=== PATIENT | female | born 1930 | race Caucasian/White ===

== ENCOUNTER 2020-02-15 15:44 | Inpatient (IN) | payer MEDICARE ==
[2020-02-15 16:19] LABS: ABSOLUTE BASOPHILS # (AUTO) 0.1 10^3/uL (0.0-0.2); ABSOLUTE EOSINOPHILS # (AUTO) 0.2 10^3/uL (0.0-0.6); ABSOLUTE LYMPHOCYTES (AUTO) 1.8 10^3/uL (0.5-4.7); ABSOLUTE MONOCYTES (AUTO) 0.7 10^3/uL (0.1-1.4); ABSOLUTE NEUT (AUTO) 4.7 10^3/uL (1.7-8.2); BASOPHILS % (AUTO) 1.1 % (0-2); EOSINOPHILS % (AUTO) 2.6 % (0-6); HEMATOCRIT 31.8 % (36.0-47.0); HEMOGLOBIN 10.8 g/dL (12.0-15.5); LYMPHOCYTES % (AUTO) 24.4 % (13-45); MEAN CORPUSCULAR HEMOGLOBIN 32.1 pg (27.0-33.4); MEAN CORPUSCULAR VOLUME 94 fl (80-97); MONOCYTES % (AUTO) 9.1 % (3-13); PLATELET COUNT 197 10^3/uL (150-450); RED BLOOD COUNT 3.37 10^6/uL (3.72-5.28); RED CELL DISTRIBUTION WIDTH 16.3 % (11.5-14.0); SEGMENTED NEUTROPHILS % (AUTO) 62.8 % (42-78); TOTAL CELLS COUNTED % (AUTO) 100 %; WHITE BLOOD COUNT 7.4 10^3/uL (4.0-10.5)
--- NOTE | 2020-02-15 16:45 | RADIOLOGY REPORT (SQ) ---
EXAM DESCRIPTION: CHEST SINGLE VIEW IMAGES COMPLETED DATE/TIME: 02/15/2020 4:37 pm REASON FOR STUDY: sob COMPARISON: AP view of the chest from 05/21/2015. EXAM PARAMETERS: NUMBER OF VIEWS: One view. TECHNIQUE: An AP view of the chest was obtained. RADIATION DOSE: NA LIMITATIONS: None. FINDINGS: LUNGS AND PLEURA: No consolidation, pleural effusion or pneumothorax. MEDIASTINUM AND HILAR STRUCTURES: No mediastinal or hilar contour abnormality. HEART AND VASCULAR STRUCTURES: The cardiac silhouette is enlarged. BONES: No acute findings. HARDWARE: Intact left subclavian vein approach single lead transvenous pacemaker. OTHER: No other finding. IMPRESSION: Cardiomegaly without a superimposed acute cardiopulmonary process. TECHNICAL DOCUMENTATION: JOB ID: [id number] 2010 [employer]- All Rights Reserved Reading location - IP/workstation name: [email or web address]
--- NOTE | 2020-02-15 16:51 | ER Document Report ---
ED Respiratory Problem - General Chief Complaint: Shortness Of Breath Stated Complaint: SHORTNESS OF BREATH, EDEMA Time Seen by Provider: 02/15/20 16:20 Mode of Arrival: Stretcher Information source: Patient, Emergency Med Personnel Notes: Patient is a 89-year-old female who states she lives alone but her daughter lives just down the street comes to visit her 3 times a day. She also states that she started with cellulitis of bilateral lower extremities and saw cardiac rehab nurse who put her on a cream that seemed to dissipate. After that dissipated though she states she got the rash under her breast and then last couple of weeks she started getting more short of breath. She feels like her abdomen is distended and she is holding fluid. She has moderate amount of discomfort. She also states that her urine appears very dark even though she is drinking 6 bottles of water a day. Patiently has a past medical history pertinent for cardiac pacemaker she takes 40 mg of Lasix daily along with another medication for the heart. She states that she is not diabetic and that she gets very little exercise. She does state that she has had increasing dyspnea on exertion over the past week to where just going to the bathroom makes her short of breath. She also states that she cannot lay flat she is laying on several pillows in order to sleep. TRAVEL OUTSIDE OF THE [place] IN LAST 30 DAYS: No - HPI Patient complains to provider of: Short of breath Onset: Last week Duration: Continuous, Worse/persistent Initiating Event: Exertion Quality of pain: No pain Severity: Moderate Pain Level: 4 Context: denies: Hx CHF, Hx COPD, Recent cardiac event, Recent foreign travel, Recent long distance trvl, Recent immobilization Short of Breath: Moderate Cough: Nonproductive Sputum amount: None Associated symptoms: Leg/calf/joint pain. denies: Heart racing, Hurts to breathe, Hyperventilation, Wheezing Similar symptoms previously: No Recently seen / treated by doctor: No - Related Data Allergies/Adverse Reactions: Seasonal Allergies Allergy (Uncoded 05/14/15 08:55) Past Medical History - General Information source: Patient - Social History Smoking Status: Never Smoker Chew tobacco use (# tins/day): No Frequency of alcohol use: None Drug Abuse: None Lives with: Alone Family History: Reviewed & Not Pertinent Patient has homicidal ideation: No - Past Medical History Cardiac Medical History: Reports: Hx Hypertension - CONTROLLED WITH MEDS Denies: Hx Coronary Artery Disease, Hx Heart Attack Pulmonary Medical History: Denies: Hx Asthma, Hx Bronchitis, Hx COPD, Hx Pneumonia Neurological Medical History: Denies: Hx Cerebrovascular Accident, Hx Seizures GI Medical History: Denies: Hx Hepatitis, Hx Hiatal Hernia, Hx Ulcer Musculoskeletal Medical History: Reports Hx Arthritis Infectious Medical History: Denies: Hx Hepatitis Past Surgical History: Reports: Hx Pacemaker - SEE CHECKLIST. Denies: Hx Mastectomy, Hx Open Heart Surgery - Immunizations Hx Diphtheria, Pertussis, Tetanus Vaccination: No - Unsure Review of Systems - Review of Systems Constitutional: No symptoms reported EENT: No symptoms reported Cardiovascular: No symptoms reported Respiratory: See HPI, Short of breath Gastrointestinal: See HPI, Abdominal pain Genitourinary: No symptoms reported Female Genitourinary: No symptoms reported Musculoskeletal: No symptoms reported Skin: No symptoms reported Hematologic/Lymphatic: No symptoms reported Neurological/Psychological: No symptoms reported -: Yes All other systems reviewed and negative Physical Exam - Vital signs Vitals: Resp 9 L 02/15/20 15:51 Interpretation: Other - Vital signs have been reviewed but are not crossing over into the main chart patient is slightly hypertensive but not tachycardic saturation is 97%. - Notes Notes: PHYSICAL EXAMINATION: GENERAL: Patient is a 89-year-old female who on physical exam today does not appear to be in any respiratory distress. Patient is talking in full sentences and appears comfortable. Patient is morbidly obese. She has bilateral lower extremity edema as noted on visualization during physical exam. HEAD: Atraumatic, normocephalic. EYES: Pupils equal round and reactive to light, extraocular movements intact, conjunctiva are normal. ENT: Nares patent, oropharynx clear without exudates. Moist mucous membranes. NECK: Normal range of motion, supple without lymphadenopathy LUNGS: Auscultation patient's lungs show she has bilateral breath sounds and breath sounds decreased throughout she has faint rales scattered in the bases of the lungs. No rhonchi wheeze are heard. HEART: Regular rate and rhythm without murmurs ABDOMEN: Examination patient's abdomen so she has bowel sounds present all 4 quads. She is diffusely tender with some moderate distention also noted. But patient's body habitus is very hard to get a good physical exam on the abdomen. Female : deferred Musculoskeletal: Normal range of motion, patient does display 1-2+ pitting edema bilaterally but she has a chronic history of ankle edema. No cyanosis. She has palpable dorsalis pedal pulses and good cap refill in nailbeds the toes of bilateral feet. NEUROLOGICAL: Normal speech, normal gait. Normal sensory, motor exams PSYCH: Normal mood, normal affect. SKIN: Patient has noted redness on bilateral lower extremities but appears her normal color per patient is some healed up from when she had cellulitis. 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 CT showed she had some edema of the abdomen. I contacted the hospitalist who accepted admission for the UTI. - Vital Signs Vital signs: Temp Pulse Resp BP Pulse Ox 97.5 F 87 20 146/71 H 100 02/15/20 21:17 02/15/20 21:17 02/15/20 21:17 02/15/20 21:17 02/15/20 21:17 - Laboratory Result Diagrams: 02/15/20 16:07 02/15/20 16:07 Laboratory results interpreted by me: 02/15/20 02/15/20 02/15/20 16:07 16:07 16:07 RBC 3.37 L Hgb 10.8 L Hct 31.8 L RDW 16.3 H Sodium 133.1 L Chloride 97 L Est GFR ( Amer) 57 L Est GFR (MDRD) Non-Af 47 L Glucose 117 H Total Bilirubin 1.6 H Direct Bilirubin 0.5 H Alkaline Phosphatase 139 H NT-Pro-B Natriuret Pep 1300 H Urine Protein Urine Blood Urine Nitrite Urine Urobilinogen Ur Leukocyte Esterase 02/15/20 17:30 RBC Hgb Hct RDW Sodium Chloride Est GFR ( Amer) Est GFR (MDRD) Non-Af Glucose Total Bilirubin Direct Bilirubin Alkaline Phosphatase NT-Pro-B Natriuret Pep Urine Protein 30 H Urine Blood MODERATE H Urine Nitrite POSITIVE H Urine Urobilinogen 2.0 H Ur Leukocyte Esterase MODERATE H Discharge - Discharge Clinical Impression: Venous stasis UTI (urinary tract infection) Qualifiers: Urinary tract infection type: site unspecified Hematuria presence: with hematuria Qualified Code(s): N39.0 - Urinary tract infection, site not specified Condition: Stable Disposition: ADMITTED INPATIENT Admitting Provider: Brody (Hospitalist) Unit Admitted: Medical Floor
[2020-02-15 16:52] LABS: ALBUMIN 3.5 g/dL (3.5-5.0); ALKALINE PHOSPHATASE 139 U/L (38-126); ANION GAP 8 (5-19); ASPARTATE AMINO TRANSFERASE 32 U/L (14-36); BILIRUBIN,DIRECT 0.5 mg/dL (0.0-0.4); BILIRUBIN,TOTAL 1.6 mg/dL (0.2-1.3); BLOOD UREA NITROGEN 14 mg/dL (7-20); CALCIUM 9.3 mg/dL (8.4-10.2); CARBON DIOXIDE 28 mmol/L (22-30); CHLORIDE 97 mmol/L (98-107); CREATINE KINASE 43 U/L (30-135); GLUCOSE 117 mg/dL (75-110); POTASSIUM 3.9 mmol/L (3.6-5.0); TOTAL PROTEIN 6.9 g/dL (6.3-8.2)
[2020-02-15 17:04] LABS: CREATINE KINASE MB 1.78 ng/mL (<4.55)
[2020-02-15 17:14] LABS: TROPONIN I 0.057 ng/mL
--- NOTE | 2020-02-15 17:37 | RADIOLOGY REPORT (SQ) ---
EXAM DESCRIPTION: CT ABD/PELVIS NO ORAL OR IV IMAGES COMPLETED DATE/TIME: 02/15/2020 5:03 pm REASON FOR STUDY: Abdominal pain COMPARISON: None. TECHNIQUE: CT scan of the abdomen and pelvis performed without intravenous or oral contrast. Images reviewed with lung, soft tissue, and bone windows. Reconstructed coronal and sagittal MPR images revi ewed. All images stored on PACS. All CT scanners at this facility use dose modulation, iterative reconstruction, and/or weight based d osing when appropriate to reduce radiation dose to as low as reasonably achievable (ALARA). [facility]: Dose Right [facility]: CareDose [facility]: Dose Right [facility]: Teradose 4D [facility]: Smart TraceSecurity RADIATION DOSE: CT Rad equipment meets quality standard of care and radiation dose reduction techniq ues were employed. CTDIvol: 19.2 mGy. DLP: 1041 mGy-cm. LIMITATIONS: None. FINDINGS: LOWER CHEST: Bilateral small pleural effusions with some slight compressive atelectatic c hanges at the lung bases. Partially visualize cardiac pacemaker. NON-CONTRASTED LIVER, SPLEEN, ADRENALS: Evaluation limited by lack of IV contrast. No identified sign ificant masses. PANCREAS: No masses. No peripancreatic inflammatory changes. GALLBLADDER: The gallbladder is contracted. No inflammatory changes to suggest cholecystitis. RIGHT KIDNEY AND URETER: Exophytic right renal cyst. Assessment limited by lack of IV contrast. N o significant calcifications. No hydronephrosis or hydroureter. LEFT KIDNEY AND URETER: No suspicious masses. Assessment limited by lack of IV contrast. No signifi cant calcifications. No hydronephrosis or hydroureter. AORTA AND RETROPERITONEUM: Atherosclerotic changes involving the abdominal aorta and branch vessels. No aneurysm. No retroperitoneal masses or adenopathy. BOWEL AND PERITONEAL CAVITY: Colonic diverticulae without evidence of diverticulitis. No free fluid . APPENDIX: Not visualized. PELVIS, BLADDER, AND ABDOMINAL WALL: Extensive edema in the anterior subcutaneous tissues of the abd omen and pelvis with mild diffuse overlying skin thickening. Calcified and noncalcified uterine fibroid suggested. Small fat containing umbilical hernia. No warren e fluid. The urinary bladder is incompletely distended. BONES: Degenerative visualized lower thoracic and lumbar spondylosis. OTHER: No other significant finding. IMPRESSION: 1. Extensive edema in the anterior subcutaneous tissues of the abdomen and pelvis with mild diffuse overlying skin thickening. 2. Colonic diverticulae without evidence of diverticulitis. 3. Right renal cyst. 4. Bilateral small pleural effusions with slight compressive atelectatic changes at the lung bases. 5. Additional findings as above. COMMENT: Quality ID # [id number]: Final reports with documentation of one or more dose reduction techniques (e.g., Automated exposure control, adjustment of the mA and/or kV according to patient size, use of iterative reconstruction technique) TECHNICAL DOCUMENTATION: JOB ID: [id number] 2010 [employer]- All Rights Reserved Reading location - IP/workstation name: [email or web address]
[2020-02-15 17:52] LABS: APPEARANCE,URINE CLOUDY; BILIRUBIN,URINE NEGATIVE (NEGATIVE); GLUCOSE, URINE NEGATIVE (NEGATIVE); KETONES,URINE NEGATIVE (NEGATIVE); LEUKOCYTE ESTERASE,URINE MODERATE (NEGATIVE); NITRITE,URINE POSITIVE (NEGATIVE); PROTEIN,URINE 30 mg/dL (NEGATIVE); URINE SPECIFIC GRAVITY 1.016
[2020-02-15 17:54] LABS: COLOR,URINE YELLOW
[2020-02-15] MEDS ORDERED: CEFTRIAXONE 1 GM/D5W RTU 1 GM/50 ML RTUPB IV ONE (18:14)
[2020-02-15] MEDS ORDERED: FUROSEMIDE INJ/PF 40 MG/4 ML SDV IV ONE (18:15)
[2020-02-15] MEDS ORDERED: MAG HYDROX/AL HYDROX/SIMETH SUSP 30 ML UDCUP PO PRN (20:16)
[2020-02-15] MEDS ORDERED: MAGNESIUM HYDROXIDE SUSP 30 ML UDCUP PO PRN (20:16)
[2020-02-15] MEDS ORDERED: ONDANSETRON HCL INJ/PF 4 MG/2 ML SDV IV PRN (20:16)
[2020-02-15] MEDS ORDERED: ACETAMINOPHEN 325 MG TABLET PO PRN (20:22)
[2020-02-15] MEDS ORDERED: MORPHINE SULFATE 10 MG/ML INJ IV PRN (20:22)
[2020-02-15] MEDS ORDERED: LORAZEPAM INJ 2 MG/1 ML VIAL IV PRN (20:22)
[2020-02-15] MEDS ORDERED: HYDRALAZINE HCL INJ/PF 20 MG/1 ML SDV IV PRN (20:22)
[2020-02-15] MEDS ORDERED: GUAIFENESIN SYRP 200 MG/10 ML UDC PO PRN (20:22)
--- NOTE | 2020-02-15 21:25 | EKG REPORT ---
SEVERITY:- ABNORMAL ECG - IDIOVENTRICULAR RHYTHM, NO OBVIOUS PACEMAKER SPIKE. THE DX BELOW IS INVALD IF THIS IS A VENTRICULAR PACED RHYTHM INFERIOR INFARCT, AGE INDETERMINATE LATERAL INFARCT, AGE INDETERMINATE ANTERIOR INFARCT, AGE INDETERMINATE : Confirmed by: Armin Soto MD 15-Feb-2020 21:24:49
[2020-02-15] MEDS: FAMOTIDINE 20 MG TABLET PO SCH (21:32)
[2020-02-15] MEDS: MELATONIN 5 MG TABLET PO PRN (21:32)
[2020-02-15] MEDS ORDERED: HEPARIN SOD (PORCINE) 5,000 UNIT/ML 1 ML VIAL SUBCUT SCH (22:00)
--- NOTE | 2020-02-15 22:03 | PDOC H&P ---
History of Present Illness Admission Date/PCP: 02/15/20 19:54 JOEL BARRAGAN MD Patient complains of: Dyspnea History of Present Illness: ROLDAN SCHAEFER is a 89 year old female who presents the emergency room with a 1 month history of dyspnea. She admits the gradual onset and progressively w orsening dyspnea over the last month becoming moderately severe over the last few days resulting in her ER visit. Her dyspnea is worsened by any exertion and is associated with orthopnea and swelling with mild to moderate tenderness of her left breast, bilateral lower extremities, pelvic area and abdominal pannus. Her dyspnea has been accompanied by an increase in her GERD symptoms and a change in her urine to dark and foul-smelling. Her dyspnea has been severe enough to limit her ability to get up and go to the bathroom. Denies other associated or accompanying signs and symptoms. She denies prior similar symptoms. She has not identified any additional aggravating or ameliorating factors for her dyspnea. In the emergency room she was found to have 2+ pitting edema, an elevated BNP, cardiomegaly per chest x-ray and her urinalysis showed positive for nitrates. She was started on IV antibiotics with Rocephin and given IV Lasix in the emergency room. She was subsequently admitted to the hospital for further evaluation and treatment. 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 Denies: Congestive Heart Failure, Coronary Artery Disease, DVT, Myocardial Infarction, Peripheral Vascular Disease, Pulmonary Embolism Pulmonary Medical History: Denies: Asthma, Bronchitis, Chronic Obstructive Pulmonary Disease (COPD), Pneumonia EENT Medical History: Reports: Cataracts, Other - Seasonal allergies Denies: Ears - Hearing aids Neurological Medical History: Denies: Hemorrhagic CVA, Ischemic CVA, Seizures Endocrine Medical History: Reports: Obesity Denies: Diabetes Mellitus Type 1, Diabetes Mellitus Type 2, Hyperthyroidism, Hypothyroidism Renal/ Medical History: Denies: Chronic Kidney Disease, Nephrolithiasis Malignancy Medical History: Reports: None GI Medical History: Reports: Gastroesophageal Reflux Disease Denies: Cirrhosis, Crohn's Disease, Hepatitis, Hiatal Hernia, Peptic Ulcer Disease, Ulcerative Colitis Musculoskeltal Medical History: Reports: Arthritis Denies: Gout Skin Medical History: Denies: Eczema, Psoriasis Psychiatric Medical History: Denies: Alcohol Dependency, Substance Abuse, Tobacco Dependency Traumatic Medical History: Reports: None Hematology: Denies: Anemia, Bleeding Tendencies Infectious Medical History: Reports: None Past Surgical History Past Surgical History: Reports: Knee Replacement, Pacemaker, Other - Cataract surgery Social History Information Source: Patient Lives with: Alone Smoking Status: Never Smoker Electronic Cigarette use?: No Frequency of Alcohol Use: None Hx Recreational Drug Use: No Drugs: None Hx Prescription Drug Abuse: No - Advance Directive Resuscitation Status: Full Code Surrogate healthcare decision maker:: Gabrielle Allen Family History Family History: CAD - Mother, Malignancy - Father and brother. denies: DM, Hypertension Parental Family History Reviewed: Yes Children Family History Reviewed: No Sibling(s) Family History Reviewed.: Yes Medication/Allergy Home Medications: Hydrochlorothiazide 12.5 mg PO Q48H 02/13/15 Lisinopril 40 mg PO DAILY 02/13/15 Lovastatin [Altoprev] 20 mg PO QHS 02/13/15 Warfarin Sodium [Coumadin] 5 mg PO QHS 02/13/15 Acetaminophen [Pain & Fever] 500 mg PO DAILY 05/14/15 Warfarin Sodium 2.5 mg PO MO 05/14/15 Allergies/Adverse Reactions: Seasonal Allergies Allergy (Uncoded 05/14/15 08:55) Review of Systems Constitutional: ABSENT: chills, fever(s) Eyes: ABSENT: visual disturbances, other - Eye pain Ears: ABSENT: hearing changes, other - Ear pain Nose, Mouth, and Throat: ABSENT: headache(s), sore throat Breasts: PRESENT: as per HPI, other - Swelling of left breast Cardiovascular: PRESENT: as per HPI, dyspnea on exertion, edema, orthropnea. ABSENT: chest pain, palpitations Respiratory: PRESENT: as per HPI, dyspnea. ABSENT: cough Gastrointestinal: PRESENT: abdominal pain - Due to swelling of abdominal pannus. ABSENT: constipation, diarrhea, nausea, vomiting Genitourinary: PRESENT: other - Dark-colored foul-smelling urine. ABSENT: dysuria, hematuria Musculoskeletal: ABSENT: back pain, joint swelling Integumentary: PRESENT: rash - Recent rash/cellulitis of lower extremities treated with a topical cream to resolution, recent intertriginous submammary rash treated with a topical cream to resolution.. ABSENT: pruritus Neurological: ABSENT: confusion, convulsions, focal weakness, memory loss, s yncope Psychiatric: ABSENT: anxiety, depression Endocrine: ABSENT: cold intolerance, heat intolerance Hematologic/Lymphatic: ABSENT: easy bleeding, easy bruising Allergic/Immunologic: ABSENT: seasonal rhinorrhea Physical Exam Vital Signs: Temp Pulse Resp BP Pulse Ox 97.7 F 17 151/62 H 97 02/15/20 16:00 02/15/20 18:01 02/15/20 18:01 02/15/20 18:01 Intake & Output 02/13/20 02/14/20 02/15/20 23:59 23:59 23:59 Weight 122.47 kg General appearance: PRESENT: no acute distress, cooperative, morbidly obese Head exam: PRESENT: atraumatic, normocephalic Eye exam: PRESENT: conjunctiva pink. ABSENT: conjunctival injection, scleral icterus Ear exam: PRESENT: normal external ear exam. ABSENT: bleeding, drainage Mouth exam: PRESENT: dry mucosa, neck supple Neck exam: ABSENT: thyromegaly, tracheal deviation Respiratory exam: PRESENT: clear to auscultation umesh, symmetrical, unlabored Cardiovascular exam: PRESENT: RRR. ABSENT: clicks, gallop, rubs Pulses: PRESENT: normal radial pulses, normal dorsalis pedis pul Vascular exam: PRESENT: normal capillary refill. ABSENT: pallor Breast: PRESENT: Other - 2+ pitting edema of the left breast is noted. GI/Abdominal exam: PRESENT: normal bowel sounds, soft, tenderness - Minimal tenderness to palpation of abdominal pannus with marked 2+ pitting edema noted. Rectal exam: PRESENT: deferred Extremities exam: PRESENT: pedal edema, +2 edema - Bilateral lower extremities and presacral pelvis with 2+ pitting edema. ABSENT: joint swelling Musculoskeletal exam: ABSENT: deformity, dislocation Neurological exam: PRESENT: alert, oriented to person, oriented to place, oriented to time, oriented to situation, CN II-XII grossly intact. ABSENT: motor sensory deficit Psychiatric exam: PRESENT: appropriate affect, normal mood Skin exam: PRESENT: dry, intact, warm, other - Evidence of chronic venous stasis changes of the bilateral lower extremities and ankles. ABSENT: jaundice, rash, urticaria Results Laboratory Results: 02/15/20 16:07 02/15/20 16:07 02/15/20 02/15/20 02/15/20 16:07 16:07 17:30 WBC 7.4 RBC 3.37 L Hgb 10.8 L Hct 31.8 L MCV 94 MCH 32.1 MCHC 34.0 RDW 16.3 H Plt Count 197 Seg Neutrophils % 62.8 Sodium 133.1 L Potassium 3.9 Chloride 97 L Carbon Dioxide 28 Anion Gap 8 BUN 14 Creatinine 1.10 Est GFR ( Amer) 57 L Glucose 117 H Lactic Acid Calcium 9.3 Total Bilirubin 1.6 H AST 32 Alkaline Phosphatase 139 H Total Protein 6.9 Albumin 3.5 Urine Color YELLOW Urine Appearance CLOUDY Urine pH 5.0 Ur Specific [place] 1.016 Urine Protein 30 H Urine Glucose (UA) NEGATIVE Urine Ketones NEGATIVE Urine Blood MODERATE H Urine Nitrite POSITIVE H Ur Leukocyte Esterase MODERATE H Urine WBC (Auto) 90 Urine RBC (Auto) 4 02/15/20 18:30 WBC RBC Hgb Hct MCV MCH MCHC RDW Plt Count Seg Neutrophils % Sodium Potassium Chloride Carbon Dioxide Anion Gap BUN Creatinine Est GFR ( Amer) Glucose Lactic Acid 1.0 Calcium Total Bilirubin AST Alkaline Phosphatase Total Protein Albumin Urine Color Urine Appearance Urine pH Ur Specific [place] Urine Protein Urine Glucose (UA) Urine Ketones Urine Blood Urine Nitrite Ur Leukocyte Esterase Urine WBC (Auto) Urine RBC (Auto) 02/15/20 02/15/20 16:07 16:07 Creatine Kinase 43 CK-MB (CK-2) 1.78 Troponin I 0.057 NT-Pro-B Natriuret Pep 1300 H Impressions: Chest X-Ray 02/15/20 15:53 IMPRESSION: Cardiomegaly without a superimposed acute cardiopulmonary process. Abdomen/Pelvis CT 02/15/20 16:40 IMPRESSION: 1. Extensive edema in the anterior subcutaneous tissues of the abdomen and pelvis with mild diffuse overlying skin thickening. 2. Colonic diverticulae without evidence of diverticulitis. 3. Right renal cyst. 4. Bilateral small pleural effusions with slight compressive atelectatic changes at the lung bases. 5. Additional findings as above. Assessment and Plan - Diagnosis (1) Anasarca Is this a current diagnosis for this admission?: Yes (2) Acute on chronic congestive heart failure Qualifiers: Heart failure type: unspecified Qualified Code(s): I50.9 - Heart failure, unspecified Is this a current diagnosis for this admission?: Yes (3) UTI (urinary tract infection) Qualifiers: Urinary tract infection type: site unspecified Hematuria presence: with hematuria Qualified Code(s): N39.0 - Urinary tract infection, site not specified; R31.9 - Hematuria, unspecified Is this a current diagnosis for this admission?: Yes (4) Venous stasis Is this a current diagnosis for this admission?: Yes (5) Hypertension Qualifiers: Hypertension type: essential hypertension Qualified Code(s): I10 - Essential (primary) hypertension Is this a current diagnosis for this admission?: Yes (6) Morbid obesity Is this a current diagnosis for this admission?: Yes - Plan Summary Summary: Patient will be admitted to the medical floor where she received routine supportive and symptomatic cares. She will be treated initially with a Lasix infusion at 20 mg/h. She will receive supplemental potassium 20 mEq with meals. She will receive supplemental oxygen as required to maintain an adequate O2 saturation. Serial BMPs will be obtained to monitor her electrolyte and renal status. She will receive Rocephin 1 g IV every 24 hours pending results of her urine and blood cultures. She will be maintained on a cardiac diet. Registered dietitian, physical therapy and social media campaign manager consultations will be obtained. A cardiology consultation and echocardiogram will be obtained when services are again available. She will be continued on her usual medications, as appropriate, once her medication list has been verified and reconciled. CBCs, metabolic profiles, magnesium levels and additional radiographic and/or laboratory evaluations will be obtained as appropriate. She will receive Ativan 1 mg IV every 4 hours as needed for anxiety or restlessness. She received morphine sulfate 2 to 4 mg IV every 2 hours on an as-needed basis for pain using a sliding scale for dosing. - Time Time Spent with patient: 15-24 minutes Medications reviewed and adjusted accordingly: Yes Anticipated discharge: Home with Homehealth, SNF - Inpatient Certification Based on my medical assessment, after consideration of the patient's comor bidities, presenting symptoms, or acuity I expect that the services needed warrant INPATIENT care.: Yes I certify that my determination is in accordance with my understanding of Medicare's requirements for reasonable and necessary INPATIENT services [42 CFR 412.3e].: Yes Medical Necessity: Failure to Improve With Outpatient Therapy, Significant Comorbidiites Make Outpatient Treatment Too Risky, Need Close Monitoring Due to Risk of Patient Decompensation, Need For Continuous Telemetry Monitoring, Risk of Complication if Not Cared For in Hospital
[2020-02-15] MEDS: NORMAL SALINE 250 ML with FUROSEMIDE 250 MG IV PRN ×2 (22:35)
[2020-02-15 22:48] LABS: CREATINE KINASE MB 1.67 ng/mL (<4.55)
[2020-02-15 22:51] LABS: TROPONIN I 0.062 ng/mL
[2020-02-16] MEDS ORDERED: FUROSEMIDE INJ/PF 40 MG/4 ML SDV IV SCH
[2020-02-16 03:59] LABS: CREATINE KINASE MB 1.28 ng/mL (<4.55); TROPONIN I 0.055 ng/mL
[2020-02-16] MEDS: POTASSIUM CHLORIDE 10 MEQ TABLET.ER PO SCH ×3 (07:38→17:34)
[2020-02-16] MEDS ORDERED: POTASSIUM CHLORIDE 10 MEQ TABLET.ER PO SCH (08:00)
[2020-02-16 08:55] LABS: HEMATOCRIT 29.2 % (36.0-47.0); HEMOGLOBIN 9.9 g/dL (12.0-15.5); MEAN CORPUSCULAR HEMOGLOBIN 31.9 pg (27.0-33.4); MEAN CORPUSCULAR VOLUME 94 fl (80-97); PLATELET COUNT 179 10^3/uL (150-450); RED BLOOD COUNT 3.12 10^6/uL (3.72-5.28); RED CELL DISTRIBUTION WIDTH 16.2 % (11.5-14.0); WHITE BLOOD COUNT 6.3 10^3/uL (4.0-10.5)
[2020-02-16 09:11] LABS: ANION GAP 7 (5-19); BLOOD UREA NITROGEN 13 mg/dL (7-20); CALCIUM 8.9 mg/dL (8.4-10.2); CARBON DIOXIDE 28 mmol/L (22-30); CHLORIDE 99 mmol/L (98-107); GLUCOSE 95 mg/dL (75-110); POTASSIUM 3.7 mmol/L (3.6-5.0); TRIGLYCERIDES 51 mg/dL (<150)
[2020-02-16] MEDS: CEFTRIAXONE 1 GM/D5W RTU 1 GM/50 ML RTUPB IV SCH (09:11)
[2020-02-16] MEDS: FAMOTIDINE 20 MG TABLET PO SCH ×2 (09:16→21:43)
[2020-02-16] MEDS: APIXABAN 2.5 MG TABLET PO SCH ×2 (09:16→17:34)
[2020-02-16] MEDS: DOCUSATE SODIUM 100 MG CAPSULE PO SCH ×2 (09:16→17:34)
[2020-02-16 09:29] LABS: DIRECT LDL 77 mg/dL (<100)
[2020-02-16 09:30] LABS: CREATINE KINASE MB 1.31 ng/mL (<4.55); TROPONIN I 0.059 ng/mL
--- NOTE | 2020-02-16 10:03 | PDOC PROGRESS REPORT ---
Subjective Progress Note for:: 02/16/20 Subjective:: Patient presents with difficulty breathing and increased swelling. On the furosemide infusion she is feeling better. Reason For Visit: BILATERAL LOWER EXTREMITY EDEMA,URINARY TRACT Physical Exam Vital Signs: Temp Pulse Resp BP Pulse Ox 97.5 F 65 20 144/74 H 96 02/16/20 02:56 02/16/20 07:00 02/16/20 02:56 02/16/20 02:56 02/16/20 01:17 Intake & Output 02/15/20 02/16/20 02/17/20 06:59 06:59 06:59 Intake Total 310 Output Total 2400 Balance -209 Weight 154.7 kg General appearance: PRESENT: no acute distress, morbidly obese, well-developed Head exam: PRESENT: atraumatic, normocephalic Eye exam: PRESENT: conjunctiva pale. ABSENT: scleral icterus Ear exam: PRESENT: normal external ear exam. ABSENT: bleeding, drainage Mouth exam: PRESENT: moist, tongue midline Respiratory exam: PRESENT: rales - Faint rales. Very difficult to assess due to body habitus, symmetrical, unlabored. ABSENT: accessory muscle use, rhonchi, tachypnea, wheezes Cardiovascular exam: PRESENT: RRR, +S1, +S2, systolic murmur - Murmur present. Difficult to fully assess due to body habitus. ABSENT: diastolic murmur, irregular rhythm GI/Abdominal exam: PRESENT: normal bowel sounds, soft, other - Pendulous abdomen. ABSENT: distended, guarding, tenderness Rectal exam: PRESENT: deferred Gentrourinary exam: PRESENT: indwelling catheter Extremities exam: PRESENT: +2 edema Neurological exam: PRESENT: alert, awake, oriented to person, oriented to place, oriented to time, oriented to situation, CN II-XII grossly intact. ABSENT: altered Psychiatric exam: PRESENT: appropriate affect. ABSENT: agitated, anxious Focused psych exam: ABSENT: delusional, paranoid, restlessness Skin exam: PRESENT: erythema - Legs Results Laboratory Results: 02/16/20 08:44 02/16/20 08:44 02/15/20 02/15/20 02/15/20 16:07 16:07 17:30 WBC 7.4 RBC 3.37 L Hgb 10.8 L Hct 31.8 L MCV 94 MCH 32.1 MCHC 34.0 RDW 16.3 H Plt Count 197 Seg Neutrophils % 62.8 Sodium 133.1 L Potassium 3.9 Chloride 97 L Carbon Dioxide 28 Anion Gap 8 BUN 14 Creatinine 1.10 Est GFR ( Amer) 57 L Glucose 117 H Lactic Acid Calcium 9.3 Magnesium Total Bilirubin 1.6 H AST 32 Alkaline Phosphatase 139 H Total Protein 6.9 Albumin 3.5 Triglycerides Cholesterol LDL Cholesterol Direct VLDL Cholesterol HDL Cholesterol Urine Color YELLOW Urine Appearance CLOUDY Urine pH 5.0 Ur Specific [place] 1.016 Urine Protein 30 H Urine Glucose (UA) NEGATIVE Urine Ketones NEGATIVE Urine Blood MODERATE H Urine Nitrite POSITIVE H Ur Leukocyte Esterase MODERATE H Urine WBC (Auto) 90 Urine RBC (Auto) 4 02/15/20 02/16/20 02/16/20 18:30 08:44 08:44 WBC 6.3 RBC 3.12 L Hgb 9.9 L Hct 29.2 L MCV 94 MCH 31.9 MCHC 34.0 RDW 16.2 H Plt Count 179 Seg Neutrophils % Sodium 134.3 L Potassium 3.7 Chloride 99 Carbon Dioxide 28 Anion Gap 7 BUN 13 Creatinine 1.01 Est GFR ( Amer) > 60 Glucose 95 Lactic Acid 1.0 Calcium 8.9 Magnesium 1.8 Total Bilirubin AST Alkaline Phosphatase Total Protein Albumin Triglycerides 51 Cholesterol 123.60 LDL Cholesterol Direct 77 VLDL Cholesterol 10.0 HDL Cholesterol 46 Urine Color Urine Appearance Urine pH Ur Specific [place] Urine Protein Urine Glucose (UA) Urine Ketones Urine Blood Urine Nitrite Ur Leukocyte Esterase Urine WBC (Auto) Urine RBC (Auto) 02/15/20 02/15/20 02/15/20 16:07 16:07 21:52 Creatine Kinase 43 41 CK-MB (CK-2) 1.78 Troponin I 0.057 NT-Pro-B Natriuret Pep 1300 H 02/15/20 02/16/20 02/16/20 21:52 03:23 03:23 Creatine Kinase 39 CK-MB (CK-2) 1.67 1.28 Troponin I 0.062 0.055 NT-Pro-B Natriuret Pep 02/16/20 08:44 Creatine Kinase CK-MB (CK-2) 1.31 Troponin I 0.059 NT-Pro-B Natriuret Pep Impressions: Chest X-Ray 02/15/20 15:53 IMPRESSION: Cardiomegaly without a superimposed acute cardiopulmonary process. Abdomen/Pelvis CT 02/15/20 16:40 IMPRESSION: 1. Extensive edema in the anterior subcutaneous tissues of the a bdomen and pelvis with mild diffuse overlying skin thickening. 2. Colonic diverticulae without evidence of diverticulitis. 3. Right renal cyst. 4. Bilateral small pleural effusions with slight compressive atelectatic changes at the lung bases. 5. Additional findings as above. Assessment and Plan - Diagnosis (1) Anasarca Is this a current diagnosis for this admission?: Yes Plan: 02/16/2020 Continue current diuresis. Monitor intake and output. Monitor electrolytes. (2) Acute on chronic congestive heart failure Qualifiers: Heart failure type: unspecified Qualified Code(s): I50.9 - Heart failure, unspecified Is this a current diagnosis for this admission?: Yes Plan: 02/16/2020 Improved from a respiratory status. No echocardiogram on record. Will discuss with cardiology regarding the need to obtain an echocardiogram as an inpatient or not. (3) UTI (urinary tract infection) Qualifiers: Urinary tract infection type: site unspecified Hematuria presence: with hematuria Qualified Code(s): N39.0 - Urinary tract infection, site not specified; R31.9 - Hematuria, unspecified Is this a current diagnosis for this admission?: Yes Plan: 02/16/2020 Unfortunately a urine culture was not obtained. We will continue ceftriaxone for now and if the patient does not complete the course of antibiotics as an inpatient level completed as an outpatient. (4) Venous stasis Is this a current diagnosis for this admission?: Yes Plan: 02/16/2020 This is a chronic problem for visitation. Consider compression therapy and leg elevation. It should improve slightly with diuresis. (5) Hypertension Qualifiers: Hypertension type: essential hypertension Qualified Code(s): I10 - Essential (primary) hypertension Is this a current diagnosis for this admission?: Yes Plan: 02/16/2020 Continue current medication regimen (6) Morbid obesity Is this a current diagnosis for this admission?: Yes Plan: 02/16/2020 Encouraged stricter diet for weight management (7) Elevated troponin Is this a current diagnosis for this admission?: Yes Plan: 02/16/2020 Likely supply demand mismatch with heart failure. We will no longer trend troponin levels unless the patient develops new symptoms. - Plan Summary Summary: Patient will be admitted to the medical floor where she received routine supportive and symptomatic cares. She will be treated initially with a Lasix infusion at 20 mg/h. She will receive supplemental potassium 20 mEq with meals. She will receive supplemental oxygen as required to maintain an adequate O2 saturation. Serial BMPs will be obtained to monitor her electrolyte and renal status. She will receive Rocephin 1 g IV every 24 hours pending results of her urine and blood cultures. She will be maintained on a cardiac diet. Registered dietitian, physical therapy and social work assistant consultations will be obtained. A cardiology consultation and echocardiogram will be obtained when services are again available. She will be continued on her usual medications, as appropriate, once her medication list has been verified and reconciled. CBCs, metabolic profiles, magnesium levels and additional radiographic and/or laboratory evaluations will be obtained as appropriate. She will receive Ativan 1 mg IV every 4 hours as needed for anxiety or restlessness. She received morphine sulfate 2 to 4 mg IV every 2 hours on an as-needed basis for pain using a sliding scale for dosing. - Time Time Spent with patient: 15-24 minutes Medications reviewed and adjusted accordingly: Yes Anticipated discharge: Home with Homehealth
[2020-02-16] MEDS: NORMAL SALINE 250 ML with FUROSEMIDE 250 MG IV PRN ×2 (11:15)
--- NOTE | 2020-02-16 12:01 | PDOC CONSULTATION ---
Consultation Consult Date: 02/16/20 Attending physician:: GENO VERGARA Provider Consulted: JOSE MARTIN BARTON Consult reason:: Congestive heart failure History of Present Illness Admission Date/PCP: 02/15/20 19:54 JOEL BARRAGAN MD Patient complains of: Shortness of breath and edema History of Present Illness: ROLDAN SCHAEFER is a 89 year old female With the following active problems 1. Systemic hypertension 2. And atrial fibrillation 3. Left-sided single chamber permanent pacemaker 4. Systemic anticoagulation 5. Obesity 89-year-old lady with the above problems who presented with a worsening dyspnea and worsening lower extremity edema with mention of abdominal swelling as well. She was found to have urinary tract infection was started on intravenous antibiotics. She was also started on intravenous diuretics for diagnosis possible congestive heart failure. She reports good symptomatic improvement. At the time of my evaluation her symptoms are much improved. She does not smoke presently. Surgical history includes permanent pacemaker with pulse generator change. This is a single-chamber system on the left side. Past Medical History Cardiac Medical History: Reports: Atrial Fibrillation - Paroxysmal on chronic Eliquis, Hyperlipidema, Hypertension - CONTROLLED WITH MEDS, Other - Permanent single lead pacemaker for sick sinus syndrome Denies: Congestive Heart Failure, Coronary Artery Disease, DVT, Myocardial Infarction, Peripheral Vascular Disease, Pulmonary Embolism Pulmonary Medical History: Denies: Asthma, Bronchitis, Chronic Obstructive Pulmonary Disease (COPD), Pneumonia EENT Medical History: Reports: Cataracts, Other - Seasonal allergies Denies: Ears - Hearing aids Neurological Medical History: Denies: Hemorrhagic CVA, Ischemic CVA, Seizures Endocrine Medical History: Reports: Obesity Denies: Diabetes Mellitus Type 1, Diabetes Mellitus Type 2, Hyperthyroidism, Hypothyroidism Renal/ Medical History: Denies: Chronic Kidney Disease, Nephrolithiasis Malignancy Medical History: Reports: None GI Medical History: Reports: Gastroesophageal Reflux Disease Denies: Cirrhosis, Crohn's Disease, Hepatitis, Hiatal Hernia, Peptic Ulcer Disease, Ulcerative Colitis Musculoskeltal Medical History: Reports: Arthritis Denies: Gout Skin Medical History: Denies: Eczema, Psoriasis Psychiatric Medical History: Denies: Alcohol Dependency, Depression, Substance Abuse, Tobacco Dependency Traumatic Medical History: Reports: None Hematology: Reports: Other - Seasonal allergies Denies: Anemia, Sickle Cell Disease, Bleeding Tendencies Infectious Medical History: Reports: None Past Surgical History Past Surgical History: Reports: Knee Replacement, Pacemaker - SEE CHECKLIST, Other - Cataract surgery Denies: Amputation, Mastectomy Social History Lives with: Alone Smoking Status: Never Smoker Electronic Cigarette use?: No Frequency of Alcohol Use: None Hx Recreational Drug Use: No Drugs: None Hx Prescription Drug Abuse: No - Advance Directive Resuscitation Status: Full Code Family History Family History: Reviewed & Not Pertinent Parental Family History Reviewed: Yes - No familial illnesses that are relevant Children Family History Reviewed: NA Sibling(s) Family History Reviewed.: NA Medication/Allergy Home Medications: Apixaban [Eliquis 5 mg Tablet] 5 mg PO BID 02/16/20 Furosemide [Lasix 40 mg Tablet] 40 mg PO DAILY 02/16/20 Gabapentin [Neurontin 100 mg Capsule] 100 mg PO TID 02/16/20 Metoprolol Succinate [Toprol Xl 50 mg Tab.sr] 50 mg PO DAILY 02/16/20 Allergies/Adverse Reactions: Seasonal Allergies Allergy (Uncoded 05/14/15 08:55) Review of Systems Constitutional: PRESENT: as per HPI Cardiovascular: PRESENT: dyspnea on exertion, edema Respiratory: PRESENT: dyspnea Neurological: ABSENT: as per HPI, abnormal gait, abnormal movements, abnormal speech, confusion, convulsions, dizziness, focal weakness, frequent falls, lack of coordination, memory loss, numbness, paresthesias, restless legs, syncope, tingling, tremor(s), vertigo, weakness, other Physical Exam Vital Signs: Temp Pulse Resp BP Pulse Ox 97.4 F 74 16 135/65 H 95 02/16/20 07:32 02/16/20 07:32 02/16/20 07:32 02/16/20 07:32 02/16/20 07:32 Intake & Output 02/15/20 02/16/20 02/17/20 06:59 06:59 06:59 Intake Total 310 300 Output Total 2400 Balance -2090 300 Weight 154.7 kg General appearance: PRESENT: cooperative, morbidly obese, well-developed, well- nourished Head exam: PRESENT: atraumatic, normocephalic Eye exam: PRESENT: conjunctiva pink Mouth exam: PRESENT: dry mucosa Respiratory exam: PRESENT: decreased breath sounds, symmetrical, unlabored Cardiovascular exam: PRESENT: irregular rhythm, +S1, +S2, other - Left upper chest wall port Pulses: PRESENT: normal radial pulses - pacemaker implant site is well-healed. Pulse generator is palpable under the skin. Skin overlying is intact. Rectal exam: PRESENT: deferred Musculoskeletal exam: PRESENT: normal inspection Neurological exam: PRESENT: alert, awake, oriented to person, oriented to place, oriented to time, oriented to situation Skin exam: PRESENT: dry, intact, normal color Results Laboratory Results: 02/16/20 08:44 02/15/20 02/15/20 02/15/20 16:07 16:07 17:30 WBC 7.4 RBC 3.37 L Hgb 10.8 L Hct 31.8 L MCV 94 MCH 32.1 MCHC 34.0 RDW 16.3 H Plt Count 197 Seg Neutrophils % 62.8 Sodium 133.1 L Potassium 3.9 Chloride 97 L Carbon Dioxide 28 Anion Gap 8 BUN 14 Creatinine 1.10 Est GFR ( Amer) 57 L Glucose 117 H Lactic Acid Calcium 9.3 Magnesium Total Bilirubin 1.6 H AST 32 Alkaline Phosphatase 139 H Total Protein 6.9 Albumin 3.5 Triglycerides Cholesterol LDL Cholesterol Direct VLDL Cholesterol HDL Cholesterol Urine Color YELLOW Urine Appearance CLOUDY Urine pH 5.0 Ur Specific [place] 1.016 Urine Protein 30 H Urine Glucose (UA) NEGATIVE Urine Ketones NEGATIVE Urine Blood MODERATE H Urine Nitrite POSITIVE H Ur Leukocyte Esterase MODERATE H Urine WBC (Auto) 90 Urine RBC (Auto) 4 02/15/20 02/16/20 02/16/20 18:30 08:44 08:44 WBC 6.3 RBC 3.12 L Hgb 9.9 L Hct 29.2 L MCV 94 MCH 31.9 MCHC 34.0 RDW 16.2 H Plt Count 179 Seg Neutrophils % Sodium 134.3 L Potassium 3.7 Chloride 99 Carbon Dioxide 28 Anion Gap 7 BUN 13 Creatinine 1.01 Est GFR ( Amer) > 60 Glucose 95 Lactic Acid 1.0 Calcium 8.9 Magnesium 1.8 Total Bilirubin AST Alkaline Phosphatase Total Protein Albumin Triglycerides 51 Cholesterol 123.60 LDL Cholesterol Direct 77 VLDL Cholesterol 10.0 HDL Cholesterol 46 Urine Color Urine Appearance Urine pH Ur Specific [place] Urine Protein Urine Glucose (UA) Urine Ketones Urine Blood Urine Nitrite Ur Leukocyte Esterase Urine WBC (Auto) Urine RBC (Auto) 02/15/20 02/15/20 02/15/20 16:07 16:07 21:52 Creatine Kinase 43 41 CK-MB (CK-2) 1.78 Troponin I 0.057 NT-Pro-B Natriuret Pep 1300 H 02/15/20 02/16/20 02/16/20 21:52 03:23 03:23 Creatine Kinase 39 CK-MB (CK-2) 1.67 1.28 Troponin I 0.062 0.055 NT-Pro-B Natriuret Pep 02/16/20 08:44 Creatine Kinase CK-MB (CK-2) 1.31 Troponin I 0.059 NT-Pro-B Natriuret Pep EKG Comments: Twelve-lead EKG shows atrial fibrillation with paced rhythm. Impressions: Chest X-Ray 02/15/20 15:53 IMPRESSION: Cardiomegaly without a superimposed acute cardiopulmonary process. Abdomen/Pelvis CT 02/15/20 16:40 IMPRESSION: 1. Extensive edema in the anterior subcutaneous tissues of the abdomen and pelvis with mild diffuse overlying skin thickening. 2. Colonic diverticulae without evidence of diverticulitis. 3. Right renal cyst. 4. Bilateral small pleural effusions with slight compressive atelectatic changes at the lung bases. 5. Additional findings as above. Assessment & Plan - Diagnosis (1) Elevated troponin Is this a current diagnosis for this admission?: Yes Plan: Mildly elevated indeterminate troponins. This is probably due to congestive heart failure. Unlikely to be acute coronary syndrome. (2) Atrial fibrillation Is this a current diagnosis for this admission?: Yes Plan: Rate control strategy Continue systemic anticoagulation Backup pacing via left-sided permanent [id number]. Twelve-lead EKG shows paced rhythm with underlying atrial fibrillation. (3) Acute on chronic congestive heart failure Qualifiers: Heart failure type: unspecified Qualified Code(s): I50.9 - Heart failure, unspecified Is this a current diagnosis for this admission?: Yes Plan: Acute decompensated congestive heart failure. Ejection fraction is unknown. Since admission she is responded to intravenous diuretic therapy. Anticipate a 24-hour period of intravenous diuretic with transition to oral medicines. Free water restriction to 1.5 L/day. No added salt in the diet. (4) UTI (urinary tract infection) Qualifiers: Urinary tract infection type: site unspecified Hematuria presence: with hematuria Qualified Code(s): N39.0 - Urinary tract infection, site not specified; R31.9 - Hematuria, unspecified Is this a current diagnosis for this admission?: Yes Plan: Has responded to intravenous antibiotics.
[2020-02-16 12:24] LABS: ANION GAP 7 (5-19); BLOOD UREA NITROGEN 13 mg/dL (7-20); CALCIUM 8.8 mg/dL (8.4-10.2); CARBON DIOXIDE 29 mmol/L (22-30); CHLORIDE 97 mmol/L (98-107); GLUCOSE 125 mg/dL (75-110); POTASSIUM 3.8 mmol/L (3.6-5.0)
[2020-02-16 15:43] LABS: FREE T3 9.89 pg/mL (2.77-5.27)
[2020-02-16 15:57] LABS: THYROID STIMULATING HORMONE 3.04 uIU/mL (0.47-4.68)
[2020-02-16] MEDS: GABAPENTIN 100 MG CAPSULE PO SCH (17:34)
[2020-02-16 19:12] LABS: ANION GAP 7 (5-19); BLOOD UREA NITROGEN 14 mg/dL (7-20); CALCIUM 8.8 mg/dL (8.4-10.2); CARBON DIOXIDE 29 mmol/L (22-30); CHLORIDE 97 mmol/L (98-107); GLUCOSE 133 mg/dL (75-110); POTASSIUM 4.5 mmol/L (3.6-5.0)
[2020-02-17] MEDS: NORMAL SALINE 250 ML with FUROSEMIDE 250 MG IV PRN ×4 (00:12→15:55)
[2020-02-17 01:14] LABS: ANION GAP 8 (5-19); BLOOD UREA NITROGEN 15 mg/dL (7-20); CALCIUM 8.6 mg/dL (8.4-10.2); CARBON DIOXIDE 30 mmol/L (22-30); CHLORIDE 96 mmol/L (98-107); GLUCOSE 110 mg/dL (75-110); POTASSIUM 3.9 mmol/L (3.6-5.0)
[2020-02-17 07:06] LABS: HEMATOCRIT 28.5 % (36.0-47.0); HEMOGLOBIN 9.7 g/dL (12.0-15.5); MEAN CORPUSCULAR HEMOGLOBIN 32.1 pg (27.0-33.4); MEAN CORPUSCULAR HGB CONC 34.1 g/dL (32.0-36.0); MEAN CORPUSCULAR VOLUME 94 fl (80-97); PLATELET COUNT 179 10^3/uL (150-450); RED BLOOD COUNT 3.03 10^6/uL (3.72-5.28); RED CELL DISTRIBUTION WIDTH 16.4 % (11.5-14.0); WHITE BLOOD COUNT 5.7 10^3/uL (4.0-10.5)
[2020-02-17 07:28] LABS: ANION GAP 6 (5-19); BLOOD UREA NITROGEN 15 mg/dL (7-20); CALCIUM 8.6 mg/dL (8.4-10.2); CARBON DIOXIDE 32 mmol/L (22-30); CHLORIDE 96 mmol/L (98-107); GLUCOSE 91 mg/dL (75-110); POTASSIUM 3.6 mmol/L (3.6-5.0)
[2020-02-17] MEDS: POTASSIUM CHLORIDE 10 MEQ TABLET.ER PO SCH ×3 (08:04→17:09)
[2020-02-17] MEDS: GABAPENTIN 100 MG CAPSULE PO SCH ×3 (09:46→17:09)
[2020-02-17] MEDS: DOCUSATE SODIUM 100 MG CAPSULE PO SCH ×2 (09:46→17:09)
[2020-02-17] MEDS: FAMOTIDINE 20 MG TABLET PO SCH ×2 (09:46→22:10)
[2020-02-17] MEDS: CEFTRIAXONE 1 GM/D5W RTU 1 GM/50 ML RTUPB IV SCH (09:47)
[2020-02-17] MEDS: APIXABAN 2.5 MG TABLET PO SCH ×2 (09:47→17:09)
[2020-02-17] MEDS: METOPROLOL SUCCINATE 50 MG TAB.SR.24H PO SCH (10:14)
--- NOTE | 2020-02-17 11:43 | PDOC PROGRESS REPORT ---
Subjective Progress Note for:: 02/17/20 Subjective:: Patient reports ongoing good urine output. She feels that her abdomen has less fluid in it. She reports that she has never had stretch ivy or ridges in her abdomen before. We also discussed multiple etiologies of shortness of breath. Reason For Visit: BILATERAL LOWER EXTREMITY EDEMA,URINARY TRACT Physical Exam Vital Signs: Temp Pulse Resp BP Pulse Ox 97.9 F 64 16 104/53 L 96 02/17/20 07:18 02/17/20 07:18 02/17/20 07:18 02/17/20 07:18 02/17/20 07:18 Intake & Output 02/16/20 02/17/20 02/18/20 06:59 06:59 06:59 Intake Total 310 1510 Output Total 2400 6750 Balance -2089 Weight 154.7 kg 154.7 kg General appearance: PRESENT: no acute distress, cooperative, morbidly obese, well-developed Head exam: PRESENT: atraumatic, normocephalic Ear exam: PRESENT: normal external ear exam. ABSENT: bleeding, drainage Respiratory exam: PRESENT: clear to auscultation umesh, decreased breath sounds, symmetrical, unlabored. ABSENT: rales, rhonchi, tachypnea Cardiovascular exam: PRESENT: RRR, +S1, +S2. ABSENT: diastolic murmur, irregular rhythm, systolic murmur, tachycardia GI/Abdominal exam: PRESENT: soft, other - Pendulous abdomen. The patient reports that the striae are new and she has never had stretch ivy before. Likewise the linear hypertrophic areas, which typically happen over longer periods of time, are new findings of her abdomen. They are all under the pannus so it is hard to know how regularly she performs thorough examination.. ABSENT: guarding Rectal exam: PRESENT: deferred Gentrourinary exam: PRESENT: indwelling catheter Extremities exam: PRESENT: pedal edema, +1 edema Musculoskeletal exam: ABSENT: normal inspection Neurological exam: PRESENT: alert, awake, oriented to person, oriented to place, oriented to time, oriented to situation, CN II-XII grossly intact. ABSENT: altered, motor sensory deficit Psychiatric exam: PRESENT: appropriate affect, normal mood. ABSENT: agitated, anxious Focused psych exam: ABSENT: delusional, paranoid, restlessness Skin exam: PRESENT: dry, normal color, warm, other - See abdominal exam above. ABSENT: rash Results Laboratory Results: 02/17/20 06:29 02/17/20 06:29 02/16/20 02/16/20 02/16/20 08:44 11:43 18:24 WBC RBC Hgb Hct MCV MCH MCHC RDW Plt Count Sodium 133.3 L 133.1 L Potassium 3.8 4.5 Chloride 97 L 97 L Carbon Dioxide 29 29 Anion Gap 7 7 BUN 13 14 Creatinine 1.03 1.17 Est GFR ( Amer) > 60 53 L Glucose 125 H 133 H Calcium 8.8 8.8 Magnesium TSH 3.04 Free T3 pg/mL 9.89 H 02/17/20 02/17/20 02/17/20 00:24 06:29 06:29 WBC 5.7 RBC 3.03 L Hgb 9.7 L Hct 28.5 L MCV 94 MCH 32.1 MCHC 34.1 RDW 16.4 H Plt Count 179 Sodium 134.3 L 134.2 L Potassium 3.9 3.6 Chloride 96 L 96 L Carbon Dioxide 30 32 H Anion Gap 8 6 BUN 15 15 Creatinine 1.25 1.24 Est GFR ( Amer) 49 L 50 L Glucose 110 91 Calcium 8.6 8.6 Magnesium 1.8 TSH Free T3 pg/mL 02/15/20 02/15/20 02/15/20 16:07 16:07 21:52 Creatine Kinase 43 41 CK-MB (CK-2) 1.78 Troponin I 0.057 NT-Pro-B Natriuret Pep 1300 H 02/15/20 02/16/20 02/16/20 21:52 03:23 03:23 Creatine Kinase 39 CK-MB (CK-2) 1.67 1.28 Troponin I 0.062 0.055 NT-Pro-B Natriuret Pep 02/16/20 02/16/20 08:44 08:44 Creatine Kinase 45 CK-MB (CK-2) 1.31 Troponin I 0.059 NT-Pro-B Natriuret Pep Impressions: Chest X-Ray 02/15/20 15:53 IMPRESSION: Cardiomegaly without a superimposed acute cardiopulmonary process. Abdomen/Pelvis CT 02/15/20 16:40 IMPRESSION: 1. Extensive edema in the anterior subcutaneous tissues of the abdomen and pelvis with mild diffuse overlying skin thickening. 2. Colonic diverticulae without evidence of diverticulitis. 3. Right renal cyst. 4. Bilateral small pleural effusions with slight compressive atelectatic changes at the lung bases. 5. Additional findings as above. Assessment and Plan - Diagnosis (1) Anasarca Is this a current diagnosis for this admission?: Yes Plan: 02/16/2020 Continue current diuresis. Monitor intake and output. Monitor electrolytes. 02/17/2020 The patient is almost 8 L net negative fluid. We will continue diuresis but I will change to oral medications. (2) Acute on chronic congestive heart failure Qualifiers: Heart failure type: unspecified Qualified Code(s): I50.9 - Heart failure, unspecified Is this a current diagnosis for this admission?: Yes Plan: 02/16/2020 Improved from a respiratory status. No echocardiogram on record. Will discuss with cardiology regarding the need to obtain an echocardiogram as an inpatient or not. 02/17/2020 I discontinued the intravenous furosemide. I have ordered Lasix 80 mg p.o. every 8 hours and metolazone 5 mg each morning. Consider spironolactone as well. (3) UTI (urinary tract infection) Qualifiers: Urinary tract infection type: site unspecified Hematuria presence: with hematuria Qualified Code(s): N39.0 - Urinary tract infection, site not specified; R31.9 - Hematuria, unspecified Is this a current diagnosis for this admission?: Yes Plan: 02/16/2020 Unfortunately a urine culture was not obtained. We will continue ceftriaxone for now and if the patient does not complete the course of antibiotics as an inpatient level completed as an outpatient. 02/17/2020 Continue ceftriaxone at this time. (4) Venous stasis Is this a current diagnosis for this admission?: Yes Plan: 02/16/2020 This is a chronic problem for visitation. Consider compression therapy and leg elevation. It should improve slightly with diuresis. 02/17/2020 This is a chronic problem for this patient as noted above. At this point Velcro closure compression wraps such as Farrow wraps or CircAid compression devices would be most appropriate because they are adjustable. Also consider multilayer compression wraps and referral to lymphedema management program. We will continue diuresis as noted above. (5) Hypertension Qualifiers: Hypertension type: essential hypertension Qualified Code(s): I10 - Essential (primary) hypertension Is this a current diagnosis for this admission?: Yes Plan: 02/16/2020 Continue current medication regimen 02/17/2020 With the aggressive diuresis her pressure is on the low side. I will see how it responds to the change in diuretic therapy. We will adjust medications accordingly. (6) Morbid obesity Is this a current diagnosis for this admission?: Yes Plan: 02/16/2020 Encouraged stricter diet for weight management (7) Elevated troponin Is this a current diagnosis for this admission?: Yes Plan: 02/16/2020 Likely supply demand mismatch with heart failure. We will no longer trend troponin levels unless the patient develops new symptoms. (8) Hypokalemia Is this a current diagnosis for this admission?: Yes Plan: 02/17/2020 Continue current potassium chloride dosing. Recheck electrolytes tomorrow. - Plan Summary Summary: Patient will be admitted to the medical floor where she received routine supportive and symptomatic cares. She will be treated initially with a Lasix infusion at 20 mg/h. She will receive supplemental potassium 20 mEq with meals. She will receive supplemental oxygen as required to maintain an adequate O2 saturation. Serial BMPs will be obtained to monitor her electrolyte and renal status. She will receive Rocephin 1 g IV every 24 hours pending results of her urine and blood cultures. She will be maintained on a cardiac diet. Registered dietitian, physical therapy and professor of social work consultations will be obtained. A cardiology consultation and echocardiogram will be obtained when services are again available. She will be continued on her usual medications, as appropriate, once her medication list has been verified and reconciled. CBCs, metabolic profiles, magnesium levels and additional radiographic and/or laboratory evaluations will be obtained as appropriate. She will receive Ativan 1 mg IV every 4 hours as needed for anxiety or restlessness. She received morphine sulfate 2 to 4 mg IV every 2 hours on an as-needed basis for pain using a sliding scale for dosing. - Time Time Spent with patient: 15-24 minutes Medications reviewed and adjusted accordingly: Yes Anticipated discharge: Home with Homehealth
[2020-02-17 12:54] LABS: ANION GAP 7 (5-19); BLOOD UREA NITROGEN 15 mg/dL (7-20); CALCIUM 8.6 mg/dL (8.4-10.2); CARBON DIOXIDE 34 mmol/L (22-30); CHLORIDE 94 mmol/L (98-107); GLUCOSE 125 mg/dL (75-110); POTASSIUM 3.5 mmol/L (3.6-5.0)
[2020-02-17 18:43] LABS: ANION GAP 7 (5-19); BLOOD UREA NITROGEN 15 mg/dL (7-20); CALCIUM 8.7 mg/dL (8.4-10.2); CARBON DIOXIDE 33 mmol/L (22-30); CHLORIDE 93 mmol/L (98-107); GLUCOSE 137 mg/dL (75-110); POTASSIUM 3.6 mmol/L (3.6-5.0)
[2020-02-17] MEDS: MELATONIN 5 MG TABLET PO PRN (22:10)
[2020-02-17] MEDS: FUROSEMIDE 80 MG TABLET PO SCH (22:10)
[2020-02-18 01:11] LABS: ANION GAP 6 (5-19); BLOOD UREA NITROGEN 17 mg/dL (7-20); CALCIUM 8.7 mg/dL (8.4-10.2); CARBON DIOXIDE 32 mmol/L (22-30); CHLORIDE 95 mmol/L (98-107); GLUCOSE 115 mg/dL (75-110); POTASSIUM 3.8 mmol/L (3.6-5.0)
[2020-02-18] MEDS ORDERED: ZOLPIDEM TARTRATE 5 MG TABLET PO PRN (03:53)
[2020-02-18 05:19] LABS: HEMATOCRIT 28.1 % (36.0-47.0); HEMOGLOBIN 9.7 g/dL (12.0-15.5); MEAN CORPUSCULAR HEMOGLOBIN 32.2 pg (27.0-33.4); MEAN CORPUSCULAR HGB CONC 34.5 g/dL (32.0-36.0); MEAN CORPUSCULAR VOLUME 94 fl (80-97); PLATELET COUNT 190 10^3/uL (150-450); RED CELL DISTRIBUTION WIDTH 16.3 % (11.5-14.0); WHITE BLOOD COUNT 6.1 10^3/uL (4.0-10.5)
[2020-02-18] MEDS: FUROSEMIDE 80 MG TABLET PO SCH ×2 (05:28→13:17)
[2020-02-18] MEDS: POTASSIUM CHLORIDE 10 MEQ TABLET.ER PO SCH ×2 (07:59→11:16)
[2020-02-18] MEDS: METOPROLOL SUCCINATE 50 MG TAB.SR.24H PO SCH (09:31)
[2020-02-18] MEDS: FAMOTIDINE 20 MG TABLET PO SCH (09:31)
[2020-02-18] MEDS: GABAPENTIN 100 MG CAPSULE PO SCH ×2 (09:31→13:17)
[2020-02-18] MEDS: DOCUSATE SODIUM 100 MG CAPSULE PO SCH (09:31)
[2020-02-18] MEDS: APIXABAN 2.5 MG TABLET PO SCH (09:31)
[2020-02-18] MEDS: CEFTRIAXONE 1 GM/D5W RTU 1 GM/50 ML RTUPB IV SCH (09:33)
[2020-02-18] MEDS ORDERED: METOLAZONE 5 MG TABLET PO SCH (10:00)
--- NOTE | 2020-02-18 10:00 | PDOC PROGRESS REPORT ---
Subjective Progress Note for:: 02/18/20 Subjective:: Patient seen and examined. Feels a lot better. No complaints today. Reason For Visit: BILATERAL LOWER EXTREMITY EDEMA,URINARY TRACT Physical Exam Vital Signs: Temp Pulse Resp BP Pulse Ox 97.6 F 64 18 143/79 H 97 02/18/20 07:18 02/18/20 07:18 02/18/20 07:18 02/18/20 07:18 02/18/20 07:18 Intake & Output 02/17/20 02/18/20 02/19/20 06:59 06:59 06:59 Intake Total 1510 1945 Output Total 6716 6300 Balance -5240 -1705 Weight 154.7 kg 154.7 kg General appearance: PRESENT: no acute distress, cooperative, morbidly obese, well-developed, well-nourished Head exam: PRESENT: atraumatic, normocephalic Eye exam: PRESENT: conjunctiva pink, EOMI Mouth exam: PRESENT: moist Respiratory exam: PRESENT: decreased breath sounds, symmetrical, unlabored Cardiovascular exam: PRESENT: irregular rhythm, +S1, +S2, other - Permanent pacemaker noted Pulses: PRESENT: normal radial pulses Rectal exam: PRESENT: deferred Neurological exam: PRESENT: alert, awake, oriented to person, oriented to place, oriented to time, oriented to situation Psychiatric exam: PRESENT: appropriate affect Skin exam: PRESENT: dry, intact Results Laboratory Results: 02/18/20 04:55 02/18/20 00:39 02/17/20 02/17/20 02/18/20 12:26 18:05 00:39 WBC RBC Hgb Hct MCV MCH MCHC RDW Plt Count Sodium 134.9 L 133.2 L 132.7 L Potassium 3.5 L 3.6 3.8 Chloride 94 L 93 L 95 L Carbon Dioxide 34 H 33 H 32 H Anion Gap 7 7 6 BUN 15 15 17 Creatinine 1.23 1.44 H 1.50 H Est GFR ( Amer) 50 L 42 L 40 L Glucose 125 H 137 H 115 H Calcium 8.6 8.7 8.7 Magnesium 02/18/20 02/18/20 04:55 04:55 WBC 6.1 RBC 3.00 L Hgb 9.7 L Hct 28.1 L MCV 94 MCH 32.2 MCHC 34.5 RDW 16.3 H Plt Count 190 Sodium Potassium Chloride Carbon Dioxide Anion Gap BUN Creatinine Est GFR ( Amer) Glucose Calcium Magnesium 1.8 02/15/20 02/15/20 02/15/20 16:07 16:07 21:52 Creatine Kinase 43 41 CK-MB (CK-2) 1.78 Troponin I 0.057 NT-Pro-B Natriuret Pep 1300 H 02/15/20 02/16/20 02/16/20 21:52 03:23 03:23 Creatine Kinase 39 CK-MB (CK-2) 1.67 1.28 Troponin I 0.062 0.055 NT-Pro-B Natriuret Pep 02/16/20 02/16/20 08:44 08:44 Creatine Kinase 45 CK-MB (CK-2) 1.31 Troponin I 0.059 NT-Pro-B Natriuret Pep Impressions: Chest X-Ray 02/15/20 15:53 IMPRESSION: Cardiomegaly without a superimposed acute cardiopulmonary process. Abdomen/Pelvis CT 02/15/20 16:40 IMPRESSION: 1. Extensive edema in the anterior subcutaneous tissues of the abdomen and pelvis with mild diffuse overlying skin thickening. 2. Colonic diverticulae without evidence of diverticulitis. 3. Right renal cyst. 4. Bilateral small pleural effusions with slight compressive atelectatic changes at the lung bases. 5. Additional findings as above. Assessment & Plan - Diagnosis (1) Elevated troponin Is this a current diagnosis for this admission?: Yes Plan: Likely related to congestive heart failure and infection. Unlikely due to acute coronary syndrome. (2) Atrial fibrillation Qualifiers: Atrial fibrillation type: longstanding persistent Qualified Code(s): I48.11 - Longstanding persistent atrial fibrillation Is this a current diagnosis for this admission?: Yes Plan: Asymptomatic. Rate control strategy only Continue systemic anticoagulation Has pacemaker for sick sinus syndrome. (3) Acute on chronic congestive heart failure Qualifiers: Heart failure type: unspecified Qualified Code(s): I50.9 - Heart failure, unspecified Is this a current diagnosis for this admission?: Yes Plan: Volume status is much improved. Symptomatically better. Has diuresed. Probably switch to oral medications. (4) UTI (urinary tract infection) Qualifiers: Urinary tract infection type: site unspecified Hematuria presence: with hematuria Qualified Code(s): N39.0 - Urinary tract infection, site not specif ied; R31.9 - Hematuria, unspecified Is this a current diagnosis for this admission?: Yes Plan: Intravenous antibiotics. Transition to oral antibiotics. Clinically improved
--- NOTE | 2020-02-18 12:23 | PDOC DISCHARGE SUMMARY ---
Impression - Admit/DC Date/PCP Admission Date/Primary Care Provider: 02/15/20 19:54 JAMAAL BARRAGAN MD Discharge Date: 02/18/20 - Discharge Diagnosis (1) Anasarca Is this a current diagnosis for this admission?: Yes (2) Acute on chronic congestive heart failure Is this a current diagnosis for this admission?: Yes (3) UTI (urinary tract infection) Is this a current diagnosis for this admission?: Yes (4) Venous stasis Is this a current diagnosis for this admission?: Yes (5) Hypertension Is this a current diagnosis for this admission?: Yes (6) Morbid obesity Is this a current diagnosis for this admission?: Yes (7) Elevated troponin Is this a current diagnosis for this admission?: Yes (8) Hypokalemia Is this a current diagnosis for this admission?: Yes - Assessment Summary: Patient will be admitted to the medical floor where she received routine supportive and symptomatic cares. She will be treated initially with a Lasix infusion at 20 mg/h. She will receive supplemental potassium 20 mEq with meals. She will receive supplemental oxygen as required to maintain an adequate O2 saturation. Serial BMPs will be obtained to monitor her electrolyte and renal status. She will receive Rocephin 1 g IV every 24 hours pending results of her urine and blood cultures. She will be maintained on a cardiac diet. Registered dietitian, physical therapy and social media editor consultations will be obtained. A cardiology consultation and echocardiogram will be obtained when services are again available. She will be continued on her usual medications, as appropriate, once her medication list has been verified and reconciled. CBCs, metabolic profiles, magnesium levels and additional radiographic and/or laboratory evaluations will be obtained as appropriate. She will receive Ativan 1 mg IV every 4 hours as needed for anxiety or restlessness. She received morphine sulfate 2 to 4 mg IV every 2 hours on an as-needed basis for pain using a sliding scale for dosing. - Additional Information Resuscitation Status: Full Code Discharge Diet: Cardiac Discharge Activity: Activity As Tolerated, Balance Activity w/Rest, Keep Legs Elevated - As much as possible, Weigh Daily Referrals: JAMAAL BARRAGAN MD [Primary Care Provider] - 02/20/20 10:30 am () Prescriptions: Cephalexin [Keflex] 500 mg PO BID #6 capsule Furosemide [Lasix 40 mg Tablet] 80 mg PO BID #120 tablet Potassium Chloride 20 meq PO BID #60 tablet.er Home Medications: Apixaban [Eliquis 5 mg Tablet] 5 mg PO BID 02/16/20 Gabapentin [Neurontin 100 mg Capsule] 100 mg PO TID 02/16/20 Metoprolol Succinate [Toprol Xl 50 mg Tab.sr] 50 mg PO DAILY 02/16/20 Cephalexin [Keflex] 500 mg PO BID #6 capsule 02/18/20 Furosemide [Lasix 40 mg Tablet] 80 mg PO BID #120 tablet 02/18/20 Melatonin [Melatonin 5 mg Tablet] 10 mg PO QHS PRN tablet 02/18/20 Potassium Chloride 20 meq PO BID #60 tablet.er 02/18/20 History of Present Illiness History of Present Illness: ROLDAN SCHAEFER is a 89 year old female who presents the emergency room with a 1 month history of dyspnea. She admits the gradual onset and progressively worsening dyspnea over the last month becoming moderately severe over the last few days resulting in her ER visit. Her dyspnea is worsened by any exertion and is associated with orthopnea and swelling with mild to moderate tenderness of her left breast, bilateral lower extremities, pelvic area and abdominal pannus. Her dyspnea has been accompanied by an increase in her GERD symptoms and a change in her urine to dark and foul-smelling. Her dyspnea has been severe enough to limit her ability to get up and go to the bathroom. Denies other associated or accompanying signs and symptoms. She denies prior similar symptoms. She has not identified any additional aggravating or ameliorating factors for her dyspnea. In the emergency room she was found to have 2+ pitting edema, an elevated BNP, cardiomegaly per chest x-ray and her urinalysis showed positive for nitrates. She was started on IV antibiotics with Rocephin and given IV Lasix in the emergency room. She was subsequently admitted to the hospital for further evaluation and treatment. Hospital Course Hospital Course: - Diagnosis (1) Anasarca Is this a current diagnosis for this admission?: Yes Plan: 02/16/2020 Continue current diuresis. Monitor intake and output. Monitor electrolytes. 02/17/2020 The patient is almost 8 L net negative fluid. We will continue diuresis but I will change to oral medications. (2) Acute on chronic congestive heart failure Qualifiers: Heart failure type: unspecified Qualified Code(s): I50.9 - Heart failure, unspecified Is this a current diagnosis for this admission?: Yes Plan: 02/16/2020 Improved from a respiratory status. No echocardiogram on record. Will discuss with cardiology regarding the need to obtain an echocardiogram as an inpatient or not. 02/17/2020 I discontinued the intravenous furosemide. I have ordered Lasix 80 mg p.o. every 8 hours and metolazone 5 mg each morning. Consider spironolactone as well. (3) UTI (urinary tract infection) Qualifiers: Urinary tract infection type: site unspecified Hematuria presence: with hematuria Qualified Code(s): N39.0 - Urinary tract infection, site not specified; R31.9 - Hematuria, unspecified Is this a current diagnosis for this admission?: Yes Plan: 02/16/2020 Unfortunately a urine culture was not obtained. We will continue ceftriaxone for now and if the patient does not complete the course of antibiotics as an inp atient level completed as an outpatient. 02/17/2020 Continue ceftriaxone at this time. (4) Venous stasis Is this a current diagnosis for this admission?: Yes Plan: 02/16/2020 This is a chronic problem for visitation. Consider compression therapy and leg elevation. It should improve slightly with diuresis. 02/17/2020 This is a chronic problem for this patient as noted above. At this point Velcro closure compression wraps such as Farrow wraps or CircAid compression devices would be most appropriate because they are adjustable. Also consider multilayer compression wraps and referral to lymphedema management program. We will continue diuresis as noted above. (5) Hypertension Qualifiers: Hypertension type: essential hypertension Qualified Code(s): I10 - Essential (primary) hypertension Is this a current diagnosis for this admission?: Yes Plan: 02/16/2020 Continue current medication regimen 02/17/2020 With the aggressive diuresis her pressure is on the low side. I will see how it responds to the change in diuretic therapy. We will adjust medications accordingly. (6) Morbid obesity Is this a current diagnosis for this admission?: Yes Plan: 02/16/2020 Encouraged stricter diet for weight management (7) Elevated troponin Is this a current diagnosis for this admission?: Yes Plan: 02/16/2020 Likely supply demand mismatch with heart failure. We will no longer trend troponin levels unless the patient develops new symptoms. (8) Hypokalemia Is this a current diagnosis for this admission?: Yes Plan: 02/17/2020 Continue current potassium chloride dosing. Recheck electrolytes tomorrow. Physical Exam Vital Signs: Temp Pulse Resp BP Pulse Ox 97.4 F 60 16 124/64 100 02/18/20 11:02 02/18/20 11:02 02/18/20 11:02 02/18/20 11:02 02/18/20 11:02 Intake & Output 02/17/20 02/18/20 02/19/20 06:59 06:59 06:59 Intake Total 1510 1945 410 Output Total 6750 3650 625 Balance -5240 -1705 -215 Weight 154.7 kg 154.7 kg General appearance: PRESENT: no acute distress, morbidly obese Respiratory exam: PRESENT: clear to auscultation umesh - Anteriorly, decreased breath sounds - Due to body habitus, unlabored. ABSENT: rales, rhonchi, wheezes Cardiovascular exam: PRESENT: RRR, +S1, +S2 GI/Abdominal exam: PRESENT: normal bowel sounds, soft, other - Pendulous abdomen. ABSENT: tenderness Rectal exam: PRESENT: deferred Gentrourinary exam: ABSENT: indwelling catheter Extremities exam: PRESENT: +2 edema Neurological exam: PRESENT: alert, awake, oriented to person, oriented to place, oriented to time, oriented to situation, CN II-XII grossly intact Results Laboratory Results: WBC 6.1 10^3/uL (4.0-10.5) 02/18/20 04:55 RBC 3.00 10^6/uL (3.72-5.28) L 02/18/20 04:55 Hgb 9.7 g/dL (12.0-15.5) L 02/18/20 04:55 Hct 28.1 % (36.0-47.0) L 02/18/20 04:55 MCV 94 fl (80-97) 02/18/20 04:55 MCH 32.2 pg (27.0-33.4) 02/18/20 04:55 MCHC 34.5 g/dL (32.0-36.0) 02/18/20 04:55 RDW 16.3 % (11.5-14.0) H 02/18/20 04:55 Plt Count 190 10^3/uL (150-450) 02/18/20 04:55 Lymph % (Auto) 24.4 % (13-45) 02/15/20 16:07 [place] % (Auto) 9.1 % (3-13) 02/15/20 16:07 Eos % (Auto) 2.6 % (0-6) 02/15/20 16:07 Baso % (Auto) 1.1 % (0-2) 02/15/20 16:07 Absolute Neuts (auto) 4.7 10^3/uL (1.7-8.2) 02/15/20 16:07 Absolute Lymphs (auto) 1.8 10^3/uL (0.5-4.7) 02/15/20 16:07 Absolute Monos (auto) 0.7 10^3/uL (0.1-1.4) 02/15/20 16:07 Absolute Eos (auto) 0.2 10^3/uL (0.0-0.6) 02/15/20 16:07 Absolute Basos (auto) 0.1 10^3/uL (0.0-0.2) 02/15/20 16:07 Seg Neutrophils % 62.8 % (42-78) 02/15/20 16:07 Sodium 132.7 mmol/L (137-145) L 02/18/20 00:39 Potassium 3.8 mmol/L (3.6-5.0) 02/18/20 00:39 Chloride 95 mmol/L (98-107) L 02/18/20 00:39 Carbon Dioxide 32 mmol/L (22-30) H 02/18/20 00:39 Anion Gap 6 (5-19) 02/18/20 00:39 BUN 17 mg/dL (7-20) 02/18/20 00:39 Creatinine 1.50 mg/dL (0.52-1.25) H 02/18/20 00:39 Est GFR ( Amer) 40 (>60) L 02/18/20 00:39 Est GFR (MDRD) Non-Af 33 (>60) L 02/18/20 00:39 Glucose 115 mg/dL (75-110) H 02/18/20 00:39 Lactic Acid 1.0 mmol/L (0.7-2.1) 02/15/20 18:30 Calcium 8.7 mg/dL (8.4-10.2) 02/18/20 00:39 Magnesium 1.8 mg/dL (1.6-2.3) 02/18/20 04:55 Total Bilirubin 1.6 mg/dL (0.2-1.3) H 02/15/20 16:07 Direct Bilirubin 0.5 mg/dL (0.0-0.4) H 02/15/20 16:07 Neonat Total Bilirubin Not Reportable 02/15/20 16:07 Neonat Direct Bilirubin Not Reportable 02/15/20 16:07 Neonat Indirect Bili Not Reportable 02/15/20 16:07 AST 32 U/L (14-36) 02/15/20 16:07 ALT 13 U/L (<35) 02/15/20 16:07 Alkaline Phosphatase 139 U/L (38-126) H 02/15/20 16:07 Creatine Kinase 45 U/L (30-135) 02/16/20 08:44 CK-MB (CK-2) 1.31 ng/mL (<4.55) 02/16/20 08:44 Troponin I 0.059 ng/mL 02/16/20 08:44 NT-Pro-B Natriuret Pep 1300 pg/mL (<450) H 02/15/20 16:07 Total Protein 6.9 g/dL (6.3-8.2) 02/15/20 16:07 Albumin 3.5 g/dL (3.5-5.0) 02/15/20 16:07 Triglycerides 51 mg/dL (<150) 02/16/20 08:44 Cholesterol 123.60 mg/dL (0-200) 02/16/20 08:44 LDL Cholesterol Direct 77 mg/dL (<100) 02/16/20 08:44 VLDL Cholesterol 10.0 mg/dL (10-31) 02/16/20 08:44 HDL Cholesterol 46 mg/dL (>40) 02/16/20 08:44 TSH 3.04 uIU/mL (0.47-4.68) 02/16/20 08:44 Free T3 pg/mL 9.89 pg/mL (2.77-5.27) H 02/16/20 08:44 Urine Color YELLOW 02/15/20 17:30 Urine Appearance CLOUDY 02/15/20 17:30 Urine pH 5.0 (5.0-9.0) 02/15/20 17:30 Ur Specific [place] 1.016 02/15/20 17:30 Urine Protein 30 mg/dL (NEGATIVE) H 02/15/20 17:30 Urine Glucose (UA) NEGATIVE mg/dL (NEGATIVE) 02/15/20 17:30 Urine Ketones NEGATIVE mg/dL (NEGATIVE) 02/15/20 17:30 Urine Blood MODERATE (NEGATIVE) H 02/15/20 17:30 Urine Nitrite POSITIVE (NEGATIVE) H 02/15/20 17:30 Urine Bilirubin NEGATIVE (NEGATIVE) 02/15/20 17:30 Urine Urobilinogen 2.0 mg/dL (<2.0) H 02/15/20 17:30 Ur Leukocyte Esterase MODERATE (NEGATIVE) H 02/15/20 17:30 Urine WBC (Auto) 90 /HPF 02/15/20 17:30 Urine RBC (Auto) 4 /HPF 02/15/20 17:30 U Hyaline Cast (Auto) 2 /LPF 02/15/20 17:30 Urine Bacteria (Auto) 3+ /HPF 02/15/20 17:30 Urine WBC Clumps MANY /HPF 02/15/20 17:30 Squamous Epi Cells Auto 2 /HPF 02/15/20 17:30 Urine Mucus (Auto) MOD /LPF 02/15/20 17:30 Urine Ascorbic Acid NEGATIVE (NEGATIVE) 02/15/20 17:30 02/15/20 02/15/20 02/16/20 16:07 21:52 03:23 CK-MB (CK-2) 1.78 1.67 1.28 Troponin I 0.057 0.062 0.055 NT-Pro-B Natriuret Pep 1300 H 02/16/20 08:44 CK-MB (CK-2) 1.31 Troponin I 0.059 NT-Pro-B Natriuret Pep Impressions: Chest X-Ray 02/15/20 15:53 IMPRESSION: Cardiomegaly without a superimposed acute cardiopulmonary process. Abdomen/Pelvis CT 02/15/20 16:40 IMPRESSION: 1. Extensive edema in the anterior subcutaneous tissues of the abdomen and pelvis with mild diffuse overlying skin thickening. 2. Colonic diverticulae without evidence of diverticulitis. 3. Right renal cyst. 4. Bilateral small pleural effusions with slight compressive atelectatic changes at the lung bases. 5. Additional findings as above. Plan Health Concerns: Her morbid obesity at 89 years old is significant clinical comorbidity. I believe she has sleep apnea as well. During 1 day's exam she stated that she has never had stretch ivy before. She has never had striae on the abdomen. At her weight this is impossible. I think there is denial. I also think that the area under the pendulous abdomen is not an area that she sees regularly. It is also very unfortunate that she refused physical therapy told therapy that she did not want any home health. Plan of Treatment: We were able to diuresed 9 L of fluid from her. I do not think the daily w eights are accurate as they did not change very much considering the amount of diuresis. She will discharge on the increased dose of furosemide as noted above. She will also be on increased dose of potassium chloride. She will follow-up with Dr. Jamaal Galeano. She states that when the reason she did not want physical therapy is that she mobilizes in her wheelchair at home. Goals: Medication compliance. I explained that daily weights would be helpful. At 89 I do not know if she will pursue a sleep study or not. Time Spent: Greater than 30 Minutes Stroke Is this a Stroke Patient?: No Acute Heart Failure - Is this a Heart Failure Patient?: Yes Documentation of LVEF assessment?: No, Document reason - At 89 years old he has not been to change the plan of treatment LVEF - Reason: At 89 years old and echocardiogram would not change the plan of treatment LVEF: LVEF Greater Than 40% - Ejection fraction is most likely greater than 40%. No echocardiogram as noted above. Anticoagulant Therapy: Yes Discharged on Evidence-Based Beta Blockers: Yes Discharged on ARNI?: No-Document Contraindications - . Reason(s) not discharged on ARNI: New onset heart failure Discharged on ARB?: No-document contraindications - . Reason(s) not Discharged on ARB: Other - Ejection fraction unknown therefore unable to assess need ARB Reason - Other: ... Discharged on ACEI?: No, document contraindications - . Reason(s) not Discharged on ACEI: other - Ejection fraction unknown therefore unable to assess need ACEI Reason - Other: Ejection fraction unknown For LVEF <35%, discharged on Aldosterone Antagonist?: N/A (LVEF > or = 35%) Follow-up Appointment scheduled within 7 days?: Yes
[2020-02-18 14:28] VITALS: BP 119/59
== END 2020-02-18 15:13 | disposition home health service (06) | DRG 292 ==
LOC: ER 15:44 → EH 19:54 → 4W 20:59
PROVIDERS: ADMIT Emergency Medicine; ATTEND Hospitalist
DX: I11.0 Hypertensive heart disease with heart failure (principal); N39.0 Urinary tract infection, site not specified; I48.11 Longstanding persistent atrial fibrillation; Z68.43 Body mass index [BMI] 50.0-59.9, adult; R60.1 Generalized edema; E66.01 Morbid (severe) obesity due to excess calories; I50.9 Heart failure, unspecified; I87.8 Other specified disorders of veins; E87.6 Hypokalemia; I48.0 Paroxysmal atrial fibrillation; R74.8 Abnormal levels of other serum enzymes; G47.30 Sleep apnea, unspecified; E78.5 Hyperlipidemia, unspecified; K21.9 Gastro-esophageal reflux disease without esophagitis; R31.9 Hematuria, unspecified; Z96.659 Presence of unspecified artificial knee joint; Z60.2 Problems related to living alone; I49.5 Sick sinus syndrome; Z95.0 Presence of cardiac pacemaker; Z79.01 Long term (current) use of anticoagulants; Z79.899 Other long term (current) drug therapy
CPT/HCPCS: 36415; 71045; 74176; 80048; 80053; 80061; 81001; 82550; 82553; 83605; 83735; 83880; 84443; 84481; 84484; 85025; 85027; 93005; 93010; 96365; 96375; 99285; J0696; J1644; J1940; J2060; J3490; J7050

== ENCOUNTER 2020-03-02 11:42 | Inpatient (IN) | payer MEDICARE ==
[2020-03-02 13:16] LABS: ABSOLUTE EOSINOPHILS # (AUTO) 0.4 10^3/uL (0.0-0.6); ABSOLUTE MONOCYTES (AUTO) 1.4 10^3/uL (0.1-1.4); ABSOLUTE NEUT (AUTO) 10.4 10^3/uL (1.7-8.2); BASOPHILS % (AUTO) 0.3 % (0-2); EOSINOPHILS % (AUTO) 2.7 % (0-6); HEMATOCRIT 31.3 % (36.0-47.0); HEMOGLOBIN 10.8 g/dL (12.0-15.5); LYMPHOCYTES % (AUTO) 13.8 % (13-45); MEAN CORPUSCULAR HEMOGLOBIN 31.4 pg (27.0-33.4); MEAN CORPUSCULAR HGB CONC 34.4 g/dL (32.0-36.0); MEAN CORPUSCULAR VOLUME 91 fl (80-97); PLATELET COUNT 261 10^3/uL (150-450); RED BLOOD COUNT 3.43 10^6/uL (3.72-5.28); RED CELL DISTRIBUTION WIDTH 15.8 % (11.5-14.0); SEGMENTED NEUTROPHILS % (AUTO) 73.2 % (42-78); TOTAL CELLS COUNTED % (AUTO) 100 %; WHITE BLOOD COUNT 14.2 10^3/uL (4.0-10.5)
[2020-03-02 13:33] LABS: ALBUMIN 2.8 g/dL (3.5-5.0); ALKALINE PHOSPHATASE 107 U/L (38-126); ANION GAP 10 (5-19); ASPARTATE AMINO TRANSFERASE 25 U/L (14-36); BILIRUBIN,DIRECT 0.6 mg/dL (0.0-0.4); BILIRUBIN,TOTAL 1.8 mg/dL (0.2-1.3); BLOOD UREA NITROGEN 15 mg/dL (7-20); CALCIUM 8.5 mg/dL (8.4-10.2); CARBON DIOXIDE 28 mmol/L (22-30); CHLORIDE 89 mmol/L (98-107); GLUCOSE 108 mg/dL (75-110); TOTAL PROTEIN 5.9 g/dL (6.3-8.2)
[2020-03-02] MEDS ORDERED: RINGERS SOLUTION,LACTATED 1,000 ML IV ONE (13:43)
--- NOTE | 2020-03-02 13:57 | RADIOLOGY REPORT (SQ) ---
EXAM DESCRIPTION: CHEST SINGLE VIEW IMAGES COMPLETED DATE/TIME: 03/02/2020 1:44 pm REASON FOR STUDY: htn COMPARISON: 02/15/2020 TECHNIQUE: Single frontal radiographic view of the chest acquired. NUMBER OF VIEWS: One view. LIMITATIONS: None. FINDINGS: LUNGS AND PLEURA: No pneumothorax. No consolidation or pleural effusion. MEDIASTINUM AND HILAR STRUCTURES: Stable. HEART AND VASCULAR STRUCTURES: Stable. BONES: No acute findings. HARDWARE: Cardiac pacer. OTHER: No other significant finding. IMPRESSION: NO ACUTE FINDINGS. TECHNICAL DOCUMENTATION: JOB ID: [id number] [place]-[id number] 2010 [employer]- All Rights Reserved Reading location - IP/workstation name: [email or web address]
[2020-03-02] MEDS ORDERED: METRONIDAZOLE 500 MG/NS RTU 500 MG/100 ML RTUPB IV ONE (14:02)
[2020-03-02 15:13] LABS: APPEARANCE,URINE CLEAR; BILIRUBIN,URINE NEGATIVE (NEGATIVE); COLOR,URINE AMBER; GLUCOSE, URINE NEGATIVE (NEGATIVE); KETONES,URINE NEGATIVE (NEGATIVE); PROTEIN,URINE NEGATIVE (NEGATIVE); URINE SPECIFIC GRAVITY 1.016; UROBILINOGEN,URINE NEGATIVE mg/dL (<2.0)
--- NOTE | 2020-03-02 15:30 | PDOC H&P ---
History of Present Illness Admission Date/PCP: JOEL BARRAGAN MD Patient complains of: Watery diarrhea and weakness History of Present Illness: ROLDAN SCHAEFER is a 89 year old female who I discharged on February 17 from [facility]. At that time her primary diagnosis is anasarca with acute on chronic heart failure as well as a urinary tract infection. She was to complete 3 more days of outpatient antibiotic therapy with Keflex. Patient states that 4 days ago she began to notice diarrhea. This progressively worsened to watery diarrhea with urgency and frequency. She has a hemorrhoid so she always reports trace blood but there was no more than her baseline amount. She states that her edema is returning. She denies fever or chills. She said her appetite is been very poor but she is trying to take liquids as best she can. She has a history of atrial fibrillation, hypertension and hyperlipidemia. She is on chronic anticoagulation with Eliquis. She is morbidly obese and has gastroesophageal reflux as well as arthritis. She complains of the "cellulitis "in her right leg. I did spend a minute explained to her that it was more likely venous stasis dermatitis or thrombophlebitis and not infection. On exam she is quite talkative. Her temperature is only 99 F. Pulse and blood pressure are stable. She has already received 1 L of fluid. Her white blood cell count is slightly elevated at 14.2. She is anemic with a hemoglobin of 10.8 and a normal platelet count. She is hyponatremic with a sodium of 126.7 and hypokalemic with a potassium of 3.0. Total bilirubin is 1.8 and her serum albumin is only 2.8. A stool is being sent for C. difficile. The urine has been collected and is being sent for urinalysis with reflex to culture. Blood cultures have been detected. She has been given 1 dose of IV metronidazole. Past Medical History Cardiac Medical History: Reports: Atrial Fibrillation - Paroxysmal on chronic Eliquis, Hyperlipidema, Hypertension - CONTROLLED WITH MEDS Denies: Congestive Heart Failure, Coronary Artery Disease, DVT, Myocardial Infarction, Peripheral Vascular Disease, Pulmonary Embolism Pulmonary Medical History: Denies: Asthma, Bronchitis, Chronic Obstructive Pulmonary Disease (COPD), Pneumonia EENT Medical History: Reports: Cataracts Neurological Medical History: Denies: Seizures Endocrine Medical History: Denies: Diabetes Mellitus Type 1, Diabetes Mellitus Type 2, Hyperthyroidism, Hypothyroidism Renal/ Medical History: Denies: Chronic Kidney Disease GI Medical History: Reports: Gastroesophageal Reflux Disease Denies: Cirrhosis, Crohn's Disease, Hepatitis, Hiatal Hernia, Ulcerative Coli tis Musculoskeltal Medical History: Reports: Arthritis Denies: Gout Skin Medical History: Denies: Eczema, Psoriasis Psychiatric Medical History: Denies: Alcohol Dependency, Depression, Substance Abuse, Tobacco Dependency Hematology: Denies: Anemia, Sickle Cell Disease, Bleeding Tendencies Past Surgical History Past Surgical History: Reports: Pacemaker - SEE CHECKLIST, Other - Cataract surgery Denies: Amputation, Mastectomy Social History Information Source: Patient, [facility] Records Lives with: Alone Smoking Status: Never Smoker Electronic Cigarette use?: No Frequency of Alcohol Use: None Hx Recreational Drug Use: No Drugs: None Hx Prescription Drug Abuse: No - Advance Directive Resuscitation Status: Full Code Surrogate healthcare decision maker:: Her daughter Gabrielle Allen is the designated decision maker. Family History Family History: CAD, Malignancy Parental Family History Reviewed: Yes Children Family History Reviewed: Yes Sibling(s) Family History Reviewed.: Yes Medication/Allergy Home Medications: Apixaban [Eliquis 5 mg Tablet] 5 mg PO BID 02/16/20 Gabapentin [Neurontin 100 mg Capsule] 100 mg PO Q8 02/16/20 Metoprolol Succinate [Toprol Xl 50 mg Tab.sr] 50 mg PO DAILY 02/16/20 Furosemide [Lasix 40 mg Tablet] 80 mg PO BID #120 tablet 02/18/20 Potassium Chloride 20 meq PO BID #60 tablet.er 02/18/20 Allergies/Adverse Reactions: Seasonal Allergies Allergy (Uncoded 03/02/20 12:14) Review of Systems All systems: reviewed and no additional remarkable complaints except as stated Cardiovascular: PRESENT: edema Gastrointestinal: PRESENT: diarrhea Integumentary: PRESENT: erythema Allergic/Immunologic: PRESENT: seasonal rhinorrhea Physical Exam Vital Signs: Temp Pulse Resp BP Pulse Ox 99 F 22 H 102/53 L 100 03/02/20 11:43 03/02/20 13:01 03/02/20 13:01 03/02/20 13:01 Intake & Output 03/01/20 03/02/20 03/03/20 06:59 06:59 06:59 Intake Total 48 Balance 48 Weight 146.6 kg General appearance: PRESENT: cooperative, mild distress, morbidly obese, well- developed, well-nourished Head exam: PRESENT: atraumatic, normocephalic Eye exam: PRESENT: conjunctiva pink, EOMI. ABSENT: periorbital swelling, scleral icterus Ear exam: PRESENT: normal external ear exam. ABSENT: bleeding, drainage Mouth exam: PRESENT: dry mucosa, tongue midline Neck exam: ABSENT: carotid bruit, JVD, lymphadenopathy, tracheal deviation, tracheostomy Respiratory exam: PRESENT: clear to auscultation umesh - Anteriorly, symmetrical, tachypnea, unlabored, other - Pacemaker left upper chest. ABSENT: accessory muscle use, prolonged expiratory phas, rales, rhonchi Cardiovascular exam: PRESENT: RRR - Ventricular pacing by EKG, +S1, +S2. ABSENT: diastolic murmur, irregular rhythm, systolic murmur GI/Abdominal exam: PRESENT: normal bowel sounds, soft, other - Very large pendulous abdomen with large pannus. ABSENT: guarding, tenderness Rectal exam: PRESENT: deferred Gentrourinary exam: ABSENT: indwelling catheter Extremities exam: PRESENT: +2 edema Neurological exam: PRESENT: alert, awake, oriented to person, oriented to place, oriented to time, oriented to situation, CN II-XII grossly intact, other - Extremely talkative. ABSENT: altered Psychiatric exam: PRESENT: anxious, appropriate affect. ABSENT: agitated Focused psych exam: ABSENT: delusional, paranoid, restlessness Skin exam: PRESENT: dry, erythema - The lower legs, warm, other - Stretch ivy under pannus Results Laboratory Results: 03/02/20 12:00 03/02/20 12:00 03/02/20 03/02/20 03/02/20 12:00 12:00 12:46 WBC 14.2 H RBC 3.43 L Hgb 10.8 L Hct 31.3 L MCV 91 MCH 31.4 MCHC 34.4 RDW 15.8 H Plt Count 261 Seg Neutrophils % 73.2 Sodium 126.7 L Potassium 3.0 L* Chloride 89 L Carbon Dioxide 28 Anion Gap 10 BUN 15 Creatinine 1.18 Est GFR ( Amer) 52 L Glucose 108 Lactic Acid 1.9 Calcium 8.5 Magnesium 1.7 Total Bilirubin 1.8 H AST 25 Alkaline Phosphatase 107 Total Protein 5.9 L Albumin 2.8 L Impressions: Chest X-Ray 03/02/20 12:26 IMPRESSION: NO ACUTE FINDINGS. Assessment and Plan - Diagnosis (1) Diarrhea Qualifiers: Diarrhea type: presumed infectious Qualified Code(s): R19.7 - Diarrhea, unspecified Is this a current diagnosis for this admission?: Yes Plan: 03/02/2020 Being on antibiotics 2 weeks ago (Keflex for UTI) there is a high probability that the patient has C. difficile colitis. This would certainly explain the watery diarrhea. C. difficile testing is pending. We will need to balance his fluid intake to compensate for a fluid bolus. Along with that we will need to correct electrolyte abnormalities. C. difficile testing should be back shortly. If there is positive, as I anticipate, will start oral vancomycin therapy. We will also put the patient on contact precautions. (2) Hypokalemia Is this a current diagnosis for this admission?: Yes Plan: 03/02/2020 Secondary to the diarrhea. We will increase her potassium supplementation. Because of the diarrhea I will likely give intravenous potassium initially and continue her oral potassium. (3) Hyponatremia Is this a current diagnosis for this admission?: Yes Plan: 03/02/2020 Secondary to diarrhea most likely. Will be receiving gentle IV fluids to balance fluid loss from diarrhea. May also need to fluid restrict her from an oral standpoint but I believe the saline and stopping the diarrhea will correct her sodium. (4) Hypertension Qualifiers: Hypertension type: essential hypertension Qualified Code(s): I10 - Essential (primary) hypertension Is this a current diagnosis for this admission?: Yes Plan: 03/02/2020 Blood pressures are slightly low due to volume depletion. Will monitor closely and adjust medications accordingly. (5) Venous stasis Is this a current diagnosis for this admission?: Yes Plan: 03/02/2020 Considering her morbid obesity the patient surely has venous insufficiency with stasis dermatitis. This is mistaken for cellulitis many times. She would benefit from compression therapy. We do not have full leg sequential compression in-house. We will keep legs elevated when possible. Consider compression wraps. (6) Hypoalbuminemia Is this a current diagnosis for this admission?: Yes Plan: 03/02/2020 The patient's albumin was only 2.8. This is down from 3.5 several weeks ago. She should never felt much protein just with diarrhea. It could be delusional however I will give her 25 g of albumin and reassess. (7) Edema of both lower legs Is this a current diagnosis for this admission?: Yes Plan: 03/02/2020 Leg elevation and IV albumin at this point. I will resume diuretic therapy tomorrow. Her morbid obesity is also a contributing factor. (8) Morbid obesity Is this a current diagnosis for this admission?: Yes Plan: 03/02/2020 Her BMI of 52 significantly complicates several comorbidities. At this point aggressive diuresis would be the only way to manage her condition. Some of this certainly is water weight but only a small fraction. (9) Longstanding persistent atrial fibrillation Is this a current diagnosis for this admission?: Yes Plan: 03/02/2020 The patient has a pacemaker. Right now she is exhibiting a paced rhythm. Will monitor heart rate with vital signs. She does remain on anticoagulation. Will need to watch for blood in the stool if in fact there is a colitis. Even with pronounced diarrhea there could be bleeding. (10) Gastroesophageal reflux Qualifiers: Esophagitis presence: without esophagitis Qualified Code(s): K21.9 - Gastro-esophageal reflux disease without esophagitis Is this a current diagnosis for this admission?: Yes Plan: 03/02/2020 We will utilize Pepcid initially. Proton pump inhibitors can worsen diarrhea. - Plan Summary Summary: 03/02/2020 Vital signs listed oxygen saturations at 67% at one-point. I believe this was monitor error. The patient is not on oxygen therapy. I do not believe the patient meets sepsis criteria either. We will need to administer IV fluids carefully. She will receive albumin to try and limit third spacing due to decreased oncotic pressure. - Time Time Spent with patient: 35 or more minutes Medications reviewed and adjusted accordingly: Yes Anticipated discharge: Home with Homehealth - Inpatient Certification Based on my medical assessment, after consideration of the patient's comorbidities, presenting symptoms, or acuity I expect that the services needed warrant INPATIENT care.: Yes I certify that my determination is in accordance with my understanding of Medicare's requirements for reasonable and necessary INPATIENT services [42 CFR 412.3e].: Yes Medical Necessity: Significant Comorbidiites Make Outpatient Treatment Too Risky, Need Close Monitoring Due to Risk of Patient Decompensation, Need For IV Fluids, Risk of Complication if Not Cared For in Hospital Post Hospital Care: D/C Sr Account Executive Documentation
[2020-03-02] MEDS ORDERED: POTASSI CL 40 MEQ/NS 1L 1,000 ML IV PRN (16:04)
[2020-03-02] MEDS ORDERED: MAG HYDROX/AL HYDROX/SIMETH SUSP 30 ML UDCUP PO PRN (16:22)
[2020-03-02] MEDS ORDERED: PROMETHAZINE HCL INJ 25 MG/1 ML VIAL IV PRN (16:22)
[2020-03-02] MEDS ORDERED: ACETAMINOPHEN 325 MG TABLET PO PRN (16:22)
[2020-03-02] MEDS ORDERED: POTASSIUM CHLORIDE 10 MEQ TABLET.ER PO ONE (16:30)
[2020-03-02] MEDS: ALBUMIN HUMAN 12.5 GM/50 ML RTUINJ IV SCH ×2 (16:40→20:06)
[2020-03-02] MEDS ORDERED: VANCOMYCIN HCL INJ 500 MG VIAL PO ONE (17:00)
[2020-03-02] MEDS: LACTOBACILLUS ACIDOPHILUS 250 MG TAB PO SCH (20:06)
[2020-03-02] MEDS: APIXABAN 5 MG TABLET PO SCH (20:06)
[2020-03-02] MEDS ORDERED: NORMAL SALINE 1000 ML 1,000 ML IV ONE (21:15)
[2020-03-02 21:55] LABS: ANION GAP 8 (5-19); BLOOD UREA NITROGEN 16 mg/dL (7-20); CALCIUM 8.4 mg/dL (8.4-10.2); CARBON DIOXIDE 29 mmol/L (22-30); CHLORIDE 90 mmol/L (98-107); GLUCOSE 113 mg/dL (75-110); POTASSIUM 3.4 mmol/L (3.6-5.0)
--- NOTE | 2020-03-02 22:40 | EKG REPORT ---
SEVERITY:- ABNORMAL ECG - VENTRICULAR-PACED COMPLEXES RIGHT BUNDLE BRANCH BLOCK UNDERLYING ATRIAL FIBRILLATION : Confirmed by: Eryn Dubose MD 02-Mar-2020 22:40:17
[2020-03-02] MEDS: FAMOTIDINE 20 MG TABLET PO SCH (22:59)
[2020-03-02] MEDS: GABAPENTIN 100 MG CAPSULE PO SCH (22:59)
[2020-03-02] MEDS: VANCOMYCIN HCL INJ 500 MG VIAL PO SCH (23:00)
[2020-03-03 03:28] LABS: C DIFFICILE GDH POSITIVE (NEGATIVE)
[2020-03-03] MEDS: VANCOMYCIN HCL INJ 500 MG VIAL PO SCH ×4 (04:36→21:54)
[2020-03-03] MEDS: GABAPENTIN 100 MG CAPSULE PO SCH ×3 (05:09→21:54)
[2020-03-03 06:13] LABS: ABSOLUTE RETICS # 0.072 10^6/uL (0.028-0.122); HEMOGLOBIN 9.5 g/dL (12.0-15.5); MEAN CORPUSCULAR HEMOGLOBIN 32.3 pg (27.0-33.4); MEAN CORPUSCULAR HGB CONC 35.1 g/dL (32.0-36.0); MEAN CORPUSCULAR VOLUME 92 fl (80-97); PLATELET COUNT 245 10^3/uL (150-450); RED BLOOD COUNT 2.93 10^6/uL (3.72-5.28); RED CELL DISTRIBUTION WIDTH 15.9 % (11.5-14.0); RETICULOCYTE COUNT (AUTO) 2.44 % (0.66-2.85); WHITE BLOOD COUNT 9.6 10^3/uL (4.0-10.5)
[2020-03-03 06:33] LABS: ANION GAP 8 (5-19); BLOOD UREA NITROGEN 15 mg/dL (7-20); CARBON DIOXIDE 26 mmol/L (22-30); CHLORIDE 93 mmol/L (98-107); GLUCOSE 88 mg/dL (75-110); IRON(TIBC) 39.5 ug/dL (37-170); PHOSPHORUS 2.7 mg/dL (2.5-4.5); POTASSIUM 3.4 mmol/L (3.6-5.0)
[2020-03-03] MEDS ORDERED: NORMAL SALINE 1000 ML 1,000 ML IV PRN (09:27)
[2020-03-03] MEDS: LACTOBACILLUS ACIDOPHILUS 250 MG TAB PO SCH ×2 (09:43→17:24)
[2020-03-03] MEDS: FAMOTIDINE 20 MG TABLET PO SCH ×2 (09:43→21:54)
[2020-03-03] MEDS: APIXABAN 5 MG TABLET PO SCH ×2 (09:43→17:24)
[2020-03-03] MEDS ORDERED: PROMETHAZINE HCL INJ 25 MG/1 ML VIAL IV PRN (10:00)
[2020-03-03] MEDS ORDERED: METOPROLOL SUCCINATE 50 MG TAB.SR.24H PO SCH (10:00)
[2020-03-03] MEDS ORDERED: POTASSI CL 20 MEQ/50 ML RIDER 20 MEQ/50 ML RTUPB IV ONE (10:15)
--- NOTE | 2020-03-03 10:22 | PDOC PROGRESS REPORT ---
Subjective Progress Note for:: 03/03/20 Subjective:: The patient feels that she is starting to get better. She feels her bowels are slightly better than yesterday. She still has a heightened gastrocolic reflex and diarrhea. Her electrolytes are still low. Today her blood pressure was low and so we have held her metoprolol and she will get IV fluids. Reason For Visit: DIARRHEA-POSSIBLE C.DIFFICILE HYPONATREMIA ANEMIA Physical Exam Vital Signs: Temp Pulse Resp BP Pulse Ox 97.4 F 71 16 97/53 L 99 03/03/20 08:20 03/03/20 08:20 03/03/20 08:20 03/03/20 08:20 03/03/20 08:20 Intake & Output 03/02/20 03/03/20 03/04/20 06:59 06:59 06:59 Intake Total 2578 355 Balance 2578 355 Weight 141.9 kg General appearance: PRESENT: mild distress, morbidly obese, well-developed Head exam: PRESENT: atraumatic, normocephalic Mouth exam: PRESENT: moist, tongue midline Neck exam: ABSENT: carotid bruit, JVD, lymphadenopathy Respiratory exam: PRESENT: clear to auscultation umesh, symmetrical, unlabored. ABSENT: rales, rhonchi, tachypnea, wheezes Cardiovascular exam: PRESENT: RRR, +S1, +S2, systolic murmur - 1/6. ABSENT: diastolic murmur, irregular rhythm GI/Abdominal exam: PRESENT: hyperactive bowel sounds, soft, other - Pendulous abdomen. ABSENT: guarding, tenderness Rectal exam: PRESENT: deferred Extremities exam: PRESENT: +2 edema Neurological exam: PRESENT: alert, awake, oriented to person, oriented to place, oriented to time, oriented to situation, CN II-XII grossly intact. ABSENT: altered Psychiatric exam: PRESENT: appropriate affect. ABSENT: agitated, anxious Focused psych exam: ABSENT: delusional, paranoid, restlessness Skin exam: PRESENT: dry, erythema - Lower legs chronic, normal color, warm Results Laboratory Results: 03/03/20 05:18 03/03/20 05:18 03/02/20 03/02/20 03/02/20 12:00 12:00 12:46 WBC 14.2 H RBC 3.43 L Hgb 10.8 L Hct 31.3 L MCV 91 MCH 31.4 MCHC 34.4 RDW 15.8 H Plt Count 261 Seg Neutrophils % 73.2 Retic Count (auto) Sodium 126.7 L Potassium 3.0 L* Chloride 89 L Carbon Dioxide 28 Anion Gap 10 BUN 15 Creatinine 1.18 Est GFR ( Amer) 52 L Glucose 108 Lactic Acid 1.9 Calcium 8.5 Phosphorus Magnesium 1.7 Iron TIBC % Saturation Transferrin Ferritin Total Bilirubin 1.8 H AST 25 Alkaline Phosphatase 107 Total Protein 5.9 L Albumin 2.8 L Vitamin B12 Folate Urine Color Urine Appearance Urine pH Ur Specific [place] Urine Protein Urine Glucose (UA) Urine Ketones Urine Blood Urine RBC (Auto) 03/02/20 03/02/20 03/03/20 14:47 21:29 05:18 WBC 9.6 RBC 2.93 L Hgb 9.5 L Hct 27.0 L MCV 92 MCH 32.3 MCHC 35.1 RDW 15.9 H Plt Count 245 Seg Neutrophils % Retic Count (auto) 2.44 Sodium 126.9 L Potassium 3.4 L Chloride 90 L Carbon Dioxide 29 Anion Gap 8 BUN 16 Creatinine 1.14 Est GFR ( Amer) 55 L Glucose 113 H Lactic Acid Calcium 8.4 Phosphorus Magnesium 1.7 Iron TIBC % Saturation Transferrin Ferritin Total Bilirubin AST Alkaline Phosphatase Total Protein Albumin Vitamin B12 Folate Urine Color JOSE Urine Appearance CLEAR Urine pH 5.0 Ur Specific [place] 1.016 Urine Protein NEGATIVE Urine Glucose (UA) NEGATIVE Urine Ketones NEGATIVE Urine Blood SMALL H Urine RBC (Auto) 2 03/03/20 03/03/20 05:18 05:18 WBC RBC Hgb Hct MCV MCH MCHC RDW Plt Count Seg Neutrophils % Retic Count (auto) Sodium 127.2 L Potassium 3.4 L Chloride 93 L Carbon Dioxide 26 Anion Gap 8 BUN 15 Creatinine 1.10 Est GFR ( Amer) 57 L Glucose 88 Lactic Acid Calcium 8.0 L Phosphorus 2.7 Magnesium 1.6 Iron 39.5 TIBC 304 % Saturation 13 Transferrin 215.26 Ferritin 57.20 Total Bilirubin AST Alkaline Phosphatase Total Protein Albumin Vitamin B12 > 1000.0 H Folate 8.30 Urine Color Urine Appearance Urine pH Ur Specific [place] Urine Protein Urine Glucose (UA) Urine Ketones Urine Blood Urine RBC (Auto) 03/02/20 12:00 NT-Pro-B Natriuret Pep 2620 H Impressions: Chest X-Ray 03/02/20 12:26 IMPRESSION: NO ACUTE FINDINGS. Assessment and Plan - Diagnosis (1) Clostridium difficile colitis Is this a current diagnosis for this admission?: Yes Plan: 03/03/2020 the patient did have a confirmed C. difficile infection in her stool. I did start her on vancomycin yesterday. She states that she is starting to feel little better today. I explained the need for a 10-day course but the fact that she does not have to stay in the hospital. Right now we are focusing on chasing her electrolytes and volumes keeping in close mind her history of cardiac disease. (2) Diarrhea Qualifiers: Diarrhea type: presumed infectious Qualified Code(s): R19.7 - Diarrhea, unspecified Is this a current diagnosis for this admission?: Yes Plan: 03/02/2020 Being on antibiotics 2 weeks ago (Keflex for UTI) there is a high probability that the patient has C. difficile colitis. This would certainly explain the watery diarrhea. C. difficile testing is pending. We will need to balance his fluid intake to compensate for a fluid bolus. Along with that we will need to correct electrolyte abnormalities. C. difficile testing should be back shortly. If there is positive, as I anticipate, will start oral vancomycin therapy. We will also put the patient on contact precautions. 03/03/2020 C. difficile confirmed (3) Hypokalemia Is this a current diagnosis for this admission?: Yes Plan: 03/02/2020 Secondary to the diarrhea. We will increase her potassium supplementation. Because of the diarrhea I will likely give intravenous potassium initially and continue her oral potassium. 03/03/2020 Still low. I increased the oral potassium dosing. We will likely need to decrease as her diarrhea subsides. (4) Hyponatremia Is this a current diagnosis for this admission?: Yes Plan: 03/02/2020 Secondary to diarrhea most likely. Will be receiving gentle IV fluids to balance fluid loss from diarrhea. May also need to fluid restrict her from an oral standpoint but I believe the saline and stopping the diarrhea will correct her sodium. 03/03/2020 Monitor balance fluid loss with IV fluids versus her sodium level. We will continue to monitor and has diarrhea frequency consider sleep restriction. (5) Hypertension Qualifiers: Hypertension type: essential hypertension Qualified Code(s): I10 - Essential (primary) hypertension Is this a current diagnosis for this admission?: Yes Plan: 03/02/2020 Blood pressures are slightly low due to volume depletion. Will monitor closely and adjust medications accordingly. 03/03/2020 Try not to overload with fluid. May need small doses of midodrine. Parameters for metoprolol. This will improve as her diarrhea subsides. (6) Venous stasis Is this a current diagnosis for this admission?: Yes Plan: 03/02/2020 Considering her morbid obesity the patient surely has venous insufficiency with stasis dermatitis. This is mistaken for cellulitis many times. She would benefit from compression therapy. We do not have full leg sequential compression in-house. We will keep legs elevated when possible. Consider compression wraps. (7) Hypoalbuminemia Is this a current diagnosis for this admission?: Yes Plan: 03/02/2020 The patient's albumin was only 2.8. This is down from 3.5 several weeks ago. She should never felt much protein just with diarrhea. It could be delusional however I will give her 25 g of albumin and reassess. 03/03/2020 Received albumin. Will reassess tomorrow. Likely combination of age, diet and chronic illness. (8) Edema of both lower legs Is this a current diagnosis for this admission?: Yes Plan: 03/02/2020 Leg elevation and IV albumin at this point. I will resume diuretic therapy tomorrow. Her morbid obesity is also a contributing factor. 03/03/2020 Multifactorial. Keep legs elevated for now. (9) Morbid obesity Is this a current diagnosis for this admission?: Yes Plan: 03/02/2020 Her BMI of 52 significantly complicates several comorbidities. At this point aggressive diuresis would be the only way to manage her condition. Some of this certainly is water weight but only a small fraction. (10) Longstanding persistent atrial fibrillation Is this a current diagnosis for this admission?: Yes Plan: 03/02/2020 The patient has a pacemaker. Right now she is exhibiting a paced rhythm. Will monitor heart rate with vital signs. She does remain on anticoagulation. Will need to watch for blood in the stool if in fact there is a colitis. Even with pronounced diarrhea there could be bleeding. 03/03/2020 Continue to monitor on telemetry. Continue metoprolol vital signs with standi ng. (11) Gastroesophageal reflux Qualifiers: Esophagitis presence: without esophagitis Qualified Code(s): K21.9 - Gastro-esophageal reflux disease without esophagitis Is this a current diagnosis for this admission?: Yes Plan: 03/02/2020 We will utilize Pepcid initially. Proton pump inhibitors can worsen diarrhea. 03/03/2020 She has been laying fairly flat. This might increase her symptoms. Will monitor closely. - Plan Summary Summary: 03/02/2020 Vital signs listed oxygen saturations at 67% at one-point. I believe this was monitor error. The patient is not on oxygen therapy. I do not believe the patient meets sepsis criteria either. We will need to administer IV fluids carefully. She will receive albumin to try and limit third spacing due to decreased oncotic pressure. - Time Time Spent with patient: 15-24 minutes Medications reviewed and adjusted accordingly: Yes Anticipated discharge: Home
--- NOTE | 2020-03-03 10:30 | ER Document Report ---
Entered by JAMES MENDOZA SCRIBE 03/02/20 1204 Acting as scribe for:SCOTTIE DYSON, DO ED General - General Chief Complaint: Diarrhea Stated Complaint: DIARRHEA Time Seen by Provider: 03/02/20 11:50 Primary Care Provider: JOEL BARRAGAN MD [Primary Care Provider] - Follow up as needed Information source: Patient Notes: This 89 year old female patient presents to the emergency department today with complaints of diarrhea the past x4 days. Patient states she is nauseous and will occasionally dry heave, but denies vomiting. Patent states x1 week ago she was treated for a UTI. Patient states her legs are swelling and her stool is darker than normal. Patient states she is lightheaded from not being able to eat and denies any cough or general pain. TRAVEL OUTSIDE OF THE [place] IN LAST 30 DAYS: No - Related Data Allergies/Adverse Reactions: Seasonal Allergies Allergy (Uncoded 03/02/20 12:14) Past Medical History - General Information source: Patient - Social History Smoking Status: Never Smoker Cigarette use (# per day): No Frequency of alcohol use: None Drug Abuse: None Lives with: Alone Family History: Reviewed & Not Pertinent Patient has homicidal ideation: No - Past Medical History Cardiac Medical History: Reports: Hx Atrial Fibrillation - Paroxysmal on chronic Eliquis, Hx Hypercholesterolemia, Hx Hypertension - CONTROLLED WITH MEDS GI Medical History: Reports: Hx Gastroesophageal Reflux Disease Musculoskeletal Medical History: Reports Hx Arthritis Past Surgical History: Reports: Hx Pacemaker - SEE CHECKLIST, Other - Cataract surgery - Immunizations Hx Diphtheria, Pertussis, Tetanus Vaccination: No - Unsure Review of Systems - Review of Systems Constitutional: See HPI EENT: No symptoms reported Cardiovascular: See HPI, Lightheaded Respiratory: See HPI. denies: Cough Gastrointestinal: See HPI, Diarrhea, Nausea, Other - dark stool. denies: Vomiting Genitourinary: No symptoms reported Female Genitourinary: No symptoms reported Musculoskeletal: See HPI, Leg swelling - bilaterally Skin: No symptoms reported Hematologic/Lymphatic: No symptoms reported Neurological/Psychological: No symptoms reported -: Yes All other systems reviewed and negative Physical Exam - Vital signs Vitals: Temp 99 F 03/02/20 11:43 - General General appearance: Appears well, Alert - HEENT Head: Normocephalic, Atraumatic Eyes: Normal Pupils: PERRL - Respiratory Respiratory status: No respiratory distress Chest status: Nontender Breath sounds: Other - Diminished bilaterally Chest palpation: Normal - Cardiovascular Rhythm: Regular Heart sounds: Normal auscultation Murmur: No - Abdominal Inspection: Obese Distension: No distension Bowel sounds: Normal Tenderness: Nontender - Extremities Arm: Ecchymosis - bilaterally Notes: Chronic venous changes to the lower extremities bilaterally. Brawny edema of the lower extremities bilaterally. - Neurological Neuro grossly intact: Yes Cognition: Normal Orientation: AAOx4 Speech: Normal - Psychological Associated symptoms: Normal affect, Normal mood - Skin Skin Temperature: Warm Skin Moisture: Dry Skin Color: Normal Course - Re-evaluation Re-evalutation: 03/02/20 14:03 MDM 89 year old female arrives from home with loose watery stool for 4 days. Just over antibiotics for uti and cellulitis. No matter what she eats she has loose stool she tells me. No fever or cough although temp 99 here. No travel and no sick contacts. She denies cough or chest pain or sob. - Vital Signs Vital signs: Temp Pulse Resp BP Pulse Ox 99 F 22 H 102/53 L 100 03/02/20 11:43 03/02/20 13:01 03/02/20 13:01 03/02/20 13:01 - Laboratory Result Diagrams: 03/02/20 12:00 03/02/20 12:00 Laboratory results interpreted by me: 03/02/20 03/02/20 12:00 12:00 WBC 14.2 H RBC 3.43 L Hgb 10.8 L Hct 31.3 L RDW 15.8 H Absolute Neuts (auto) 10.4 H Sodium 126.7 L Potassium 3.0 L* Chloride 89 L Est GFR ( Amer) 52 L Est GFR (MDRD) Non-Af 43 L Total Bilirubin 1.8 H Direct Bilirubin 0.6 H Total Protein 5.9 L Albumin 2.8 L - Diagnostic Test Radiology reviewed: Reports reviewed Critical Care Note - Critical Care Note Total time excluding time spent on procedures (mins): 30 Discharge - Discharge Clinical Impression: Hypokalemia, Colitis, Hyponatremia, Dehydration Condition: Stable Disposition: ADMITTED INPATIENT Admitting Provider: Zulay (Hospitalist) Unit Admitted: Medical Floor Referrals: JOEL BARRAGAN MD [Primary Care Provider] - Follow up as needed I personally performed the services described in the documentation, reviewed and edited the documentation which was dictated to the scribe in my presence, and it accurately records my words and actions.
[2020-03-03] MEDS: POTASSIUM CHLORIDE 10 MEQ TABLET.ER PO SCH (17:24)
[2020-03-04] MEDS: VANCOMYCIN HCL INJ 500 MG VIAL PO SCH ×4 (02:57→22:20)
[2020-03-04] MEDS: GABAPENTIN 100 MG CAPSULE PO SCH ×3 (05:56→22:21)
[2020-03-04 06:38] LABS: ALBUMIN 2.5 g/dL (3.5-5.0); ANION GAP 5 (5-19); BLOOD UREA NITROGEN 13 mg/dL (7-20); CALCIUM 8.3 mg/dL (8.4-10.2); CARBON DIOXIDE 27 mmol/L (22-30); CHLORIDE 96 mmol/L (98-107); GLUCOSE 96 mg/dL (75-110); POTASSIUM 3.7 mmol/L (3.6-5.0)
[2020-03-04] MEDS: FAMOTIDINE 20 MG TABLET PO SCH ×2 (11:00→22:21)
[2020-03-04] MEDS: POTASSIUM CHLORIDE 10 MEQ TABLET.ER PO SCH ×2 (11:00→17:16)
[2020-03-04] MEDS: LACTOBACILLUS ACIDOPHILUS 250 MG TAB PO SCH ×2 (11:00→17:16)
[2020-03-04] MEDS: METOPROLOL SUCCINATE 50 MG TAB.SR.24H PO SCH (11:01)
[2020-03-04] MEDS: APIXABAN 5 MG TABLET PO SCH ×2 (11:01→17:16)
--- NOTE | 2020-03-04 11:19 | PDOC PROGRESS REPORT ---
Subjective Progress Note for:: 03/04/20 Subjective:: 89 year old female who I discharged on February 17 from [facility]. At that time her primary diagnosis is anasarca with acute on chronic heart failure as well as a urinary tract infection. She was to complete 3 more days of outpatient antibiotic therapy with Keflex. Patient states that 4 days ago she began to notice diarrhea. This progressively worsened to watery diarrhea with urgency and frequency. She has a hemorrhoid so she always reports trace blood but there was no more than her baseline amount. She states that her edema is returning. She denies fever or chills. She said her appetite is been very poor but she is trying to take liquids as best she can. She has a history of atrial fibrillation, hypertension and hyperlipidemia. She is on chronic anticoagulation with Eliquis. She is morbidly obese and has gastroesophageal reflux as well as arthritis. She complains of the "cellulitis "in her right leg. I did spend a minute explained to her that it was more likely venous stasis dermatitis or thrombophlebitis and not infection. On exam she is quite talkative. Her temperature is only 99 F. Pulse and blood pressure are stable. She has already received 1 L of fluid. Her white blood cell count is slightly elevated at 14.2. She is anemic with a hemoglobin of 10.8 and a normal platelet count. She is hyponatremic with a sodium of 126.7 and hypokalemic with a potassium of 3.0. Total bilirubin is 1.8 and her serum albumin is only 2.8. A stool is being sent for C. difficile. The urine has been collected and is being sent for urinalysis with reflex to culture. Blood cultures have been detected. She has been given 1 dose of IV metronidazole. 03/04/2020-patient admitted with C. difficile diarrhea. On contact isolation. Has 1 loose bowel movement this morning. Receiving p.o. vancomycin at this time. Comfortably in the bed communicating well. Not in distress. Reason For Visit: DIARRHEA-POSSIBLE C.DIFFICILE HYPONATREMIA ANEMIA Physical Exam Vital Signs: Temp Pulse Resp BP Pulse Ox 97.5 F 82 20 122/57 L 98 03/04/20 07:23 03/04/20 07:23 03/04/20 07:23 03/04/20 07:23 03/04/20 07:23 Intake & Output 03/03/20 03/04/20 03/05/20 06:59 06:59 06:59 Intake Total 2578 2786 Balance 2578 2786 Weight 141.9 kg 141.5 kg General appearance: PRESENT: cooperative, morbidly obese, well-developed Head exam: PRESENT: atraumatic Eye exam: PRESENT: PERRLA Mouth exam: PRESENT: moist, tongue midline Teeth exam: PRESENT: poor dentation Neck exam: ABSENT: carotid bruit, JVD, lymphadenopathy, thyromegaly Respiratory exam: PRESENT: decreased breath sounds Cardiovascular exam: PRESENT: RRR, other - Pacemaker present on the left side of the chest. GI/Abdominal exam: PRESENT: normal bowel sounds, soft. ABSENT: distended, guarding, mass, organolmegaly, rebound, tenderness Rectal exam: PRESENT: deferred Extremities exam: PRESENT: calf tenderness Neurological exam: PRESENT: alert, awake, oriented to person, oriented to place, oriented to time, oriented to situation, CN II-XII grossly intact. ABSENT: motor sensory deficit Psychiatric exam: PRESENT: appropriate affect, normal mood. ABSENT: homicidal ideation, suicidal ideation Results Laboratory Results: 03/03/20 05:18 03/04/20 05:55 03/04/20 05:55 Sodium 128.2 L Potassium 3.7 Chloride 96 L Carbon Dioxide 27 Anion Gap 5 BUN 13 Creatinine 1.04 Est GFR ( Amer) > 60 Glucose 96 Calcium 8.3 L Magnesium 1.7 Albumin 2.5 L 03/02/20 12:00 NT-Pro-B Natriuret Pep 2620 H Impressions: Chest X-Ray 03/02/20 12:26 IMPRESSION: NO ACUTE FINDINGS. Assessment and Plan - Diagnosis (1) Diarrhea Qualifiers: Diarrhea type: presumed infectious Qualified Code(s): R19.7 - Diarrhea, unspecified Is this a current diagnosis for this admission?: Yes Plan: 03/02/2020 Being on antibiotics 2 weeks ago (Keflex for UTI) there is a high probability that the patient has C. difficile colitis. This would certainly explain the watery diarrhea. C. difficile testing is pending. We will need to balance his fluid intake to compensate for a fluid bolus. Along with that we will need to correct electrolyte abnormalities. C. difficile testing should be back shortly. If there is positive, as I anticipate, will start oral vancomycin therapy. We will also put the patient on contact precautions. 03/03/2020 C. difficile confirmed 03/04/20-patient admitted with C. difficile diarrhea and contact solution, has 1 loose stool this morning. Receiving p.o. vancomycin at this time. Plan is to continue the present management. (2) Hypokalemia Is this a current diagnosis for this admission?: Yes Plan: 03/02/2020 Secondary to the diarrhea. We will increase her potassium supplementation. Because of the diarrhea I will likely give intravenous potassium initially and continue her oral potassium. 03/03/2020 Still low. I increased the oral potassium dosing. We will likely need to decrease as her diarrhea subsides. 03/04/2020-serum potassium today is 3.7 and the hypokalemia is resolving. (3) Hyponatremia Is this a current diagnosis for this admission?: Yes Plan: 03/02/2020 Secondary to diarrhea most likely. Will be receiving gentle IV fluids to balance fluid loss from diarrhea. May also need to fluid restrict her from an oral standpoint but I believe the saline and stopping the diarrhea will correct her sodium. 03/03/2020 Monitor balance fluid loss with IV fluids versus her sodium level. We will continue to monitor and has diarrhea frequency consider sleep restriction. 03/04/2020-patient with hypokalemia serum sodium is 128 today. Asymptomatic. Plan is to continue same management. Patient has a history of heart failure to watch for the fluid overload. Patient is on fluid restriction. (4) Hypoalbuminemia Is this a current diagnosis for this admission?: No Plan: 03/02/2020 The patient's albumin was only 2.8. This is down from 3.5 several weeks ago. She should never felt much protein just with diarrhea. It could be delusional however I will give her 25 g of albumin and reassess. 03/03/2020 Received albumin. Will reassess tomorrow. Likely combination of age, diet and chronic illness. 03/04/2020-serum albumin is today is 2.5. Edema of the lower extremities significantly improving as per the patient. (5) Edema of both lower legs Is this a current diagnosis for this admission?: Yes Plan: 03/02/2020 Leg elevation and IV albumin at this point. I will resume diuretic therapy tomorrow. Her morbid obesity is also a contributing factor. 03/03/2020 Multifactorial. Keep legs elevated for now. 03/04/2020-edema of the lower extremities significantly improved as per the patient. (6) Longstanding persistent atrial fibrillation Is this a current diagnosis for this admission?: No Plan: 03/02/2020 The patient has a pacemaker. Right now she is exhibiting a paced rhythm. Will monitor heart rate with vital signs. She does remain on anticoagulation. Will need to watch for blood in the stool if in fact there is a colitis. Even with pronounced diarrhea there could be bleeding. 03/03/2020 Continue to monitor on telemetry. Continue metoprolol vital signs with standing. 03/04/2020-heart rate is around 74 today. Well-controlled. Patient has history of persistent atrial fibrillation. Has a pacemaker. To continue metoprolol and she is on anticoagulation with aphixiban. 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 This is mistaken for cellulitis many times. She would benefit from compression therapy. We do not have full leg sequential compression in-house. We will keep legs elevated when possible. Consider compression wraps. (8) Morbid obesity Is this a current diagnosis for this admission?: No Plan: 03/02/2020 Her BMI of 52 significantly complicates several comorbidities. At this point aggressive diuresis would be the only way to manage her condition. Some of this certainly is water weight but only a small fraction. - Plan Summary Summary: 03/02/2020 Vital signs listed oxygen saturations at 67% at one-point. I believe this was monitor error. The patient is not on oxygen therapy. I do not believe the patient meets sepsis criteria either. We will need to administer IV fluids carefully. She will receive albumin to try and limit third spacing due to decreased oncotic pressure.
[2020-03-04] MEDS: ALBUMIN HUMAN 12.5 GM/50 ML RTUINJ IV SCH ×2 (13:17→13:49)
[2020-03-05] MEDS: VANCOMYCIN HCL INJ 500 MG VIAL PO SCH ×4 (02:51→21:47)
[2020-03-05] MEDS: GABAPENTIN 100 MG CAPSULE PO SCH ×3 (05:40→21:47)
[2020-03-05 06:31] LABS: ABSOLUTE BASOPHILS # (AUTO) 0.1 10^3/uL (0.0-0.2); ABSOLUTE EOSINOPHILS # (AUTO) 0.4 10^3/uL (0.0-0.6); ABSOLUTE LYMPHOCYTES (AUTO) 2.4 10^3/uL (0.5-4.7); ABSOLUTE MONOCYTES (AUTO) 0.8 10^3/uL (0.1-1.4); ABSOLUTE NEUT (AUTO) 4.6 10^3/uL (1.7-8.2); BASOPHILS % (AUTO) 0.7 % (0-2); EOSINOPHILS % (AUTO) 4.6 % (0-6); HEMATOCRIT 27.7 % (36.0-47.0); HEMOGLOBIN 9.5 g/dL (12.0-15.5); LYMPHOCYTES % (AUTO) 29.4 % (13-45); MEAN CORPUSCULAR HEMOGLOBIN 31.8 pg (27.0-33.4); MEAN CORPUSCULAR HGB CONC 34.4 g/dL (32.0-36.0); MEAN CORPUSCULAR VOLUME 92 fl (80-97); MONOCYTES % (AUTO) 9.7 % (3-13); PLATELET COUNT 212 10^3/uL (150-450); RED CELL DISTRIBUTION WIDTH 15.8 % (11.5-14.0); SEGMENTED NEUTROPHILS % (AUTO) 55.6 % (42-78); TOTAL CELLS COUNTED % (AUTO) 100 %; WHITE BLOOD COUNT 8.2 10^3/uL (4.0-10.5)
[2020-03-05 06:52] LABS: ALBUMIN 2.7 g/dL (3.5-5.0); ALKALINE PHOSPHATASE 92 U/L (38-126); ANION GAP 7 (5-19); ASPARTATE AMINO TRANSFERASE 21 U/L (14-36); BILIRUBIN,DIRECT 0.5 mg/dL (0.0-0.4); BILIRUBIN,TOTAL 1.3 mg/dL (0.2-1.3); BLOOD UREA NITROGEN 11 mg/dL (7-20); CALCIUM 8.3 mg/dL (8.4-10.2); CARBON DIOXIDE 27 mmol/L (22-30); CHLORIDE 95 mmol/L (98-107); GLUCOSE 92 mg/dL (75-110); POTASSIUM 4.1 mmol/L (3.6-5.0); TOTAL PROTEIN 5.5 g/dL (6.3-8.2)
[2020-03-05] MEDS: METOPROLOL SUCCINATE 50 MG TAB.SR.24H PO SCH (11:58)
[2020-03-05] MEDS: LACTOBACILLUS ACIDOPHILUS 250 MG TAB PO SCH ×2 (11:58→17:40)
[2020-03-05] MEDS: POTASSIUM CHLORIDE 10 MEQ TABLET.ER PO SCH ×2 (11:58→17:40)
[2020-03-05] MEDS: APIXABAN 5 MG TABLET PO SCH ×2 (11:58→17:40)
[2020-03-05] MEDS: FAMOTIDINE 20 MG TABLET PO SCH ×2 (11:58→21:47)
--- NOTE | 2020-03-05 12:06 | PDOC PROGRESS REPORT ---
Subjective Progress Note for:: 03/05/20 Subjective:: 89 year old female who I discharged on February 17 from [facility]. At that time her primary diagnosis is anasarca with acute on chronic heart failure as well as a urinary tract infection. She was to complete 3 more days of outpatient antibiotic therapy with Keflex. Patient states that 4 days ago she began to notice diarrhea. This progressively worsened to watery diarrhea with urgency and frequency. She has a hemorrhoid so she always reports trace blood but there was no more than her baseline amount. She states that her edema is returning. She denies fever or chills. She said her appetite is been very poor but she is trying to take liquids as best she can. She has a history of atrial fibrillation, hypertension and hyperlipidemia. She is on chronic anticoagulation with Eliquis. She is morbidly obese and has gastroesophageal reflux as well as arthritis. She complains of the "cellulitis "in her right leg. I did spend a minute explained to her that it was more likely venous stasis dermatitis or thrombophlebitis and not infection. On exam she is quite talkative. Her temperature is only 99 F. Pulse and blood pressure are stable. She has already received 1 L of fluid. Her white blood cell count is slightly elevated at 14.2. She is anemic with a hemoglobin of 10.8 and a normal platelet count. She is hyponatremic with a sodium of 126.7 and hypokalemic with a potassium of 3.0. Total bilirubin is 1.8 and her serum albumin is only 2.8. A stool is being sent for C. difficile. The urine has been collected and is being sent for urinalysis with reflex to culture. Blood cultures have been detected. She has been given 1 dose of IV metronidazole. 03/04/2020-patient admitted with C. difficile diarrhea. On contact isolation. Has 1 loose bowel movement this morning. Receiving p.o. vancomycin at this time. Comfortably in the bed communicating well. Not in distress. 03/05/2020-no diarrhea is reported. Patient is C. difficile positive and on p.o. vancomycin. Refused physical therapy. Requesting to take a bath and requesting cream to apply to the lower extremities. Other than that she is doing well. Edema is improving. Pressures are stable. Reason For Visit: DIARRHEA-POSSIBLE C.DIFFICILE HYPONATREMIA ANEMIA Physical Exam Vital Signs: Temp Pulse Resp BP Pulse Ox 97.5 F 65 16 114/71 99 03/05/20 08:28 03/05/20 08:28 03/05/20 08:28 03/05/20 08:28 03/05/20 08:28 Intake & Output 03/04/20 03/05/20 03/06/20 06:59 06:59 06:59 Intake Total 2786 1822 Balance 2786 1822 Weight 141.5 kg 142.2 kg General appearance: PRESENT: no acute distress, morbidly obese Head exam: PRESENT: atraumatic Eye exam: PRESENT: PERRLA Mouth exam: PRESENT: dry mucosa Teeth exam: PRESENT: poor dentation Neck exam: ABSENT: carotid bruit, JVD, lymphadenopathy, thyromegaly Respiratory exam: PRESENT: decreased breath sounds Cardiovascular exam: PRESENT: RRR. ABSENT: diastolic murmur, rubs, systolic murmur GI/Abdominal exam: PRESENT: normal bowel sounds, soft. ABSENT: distended, guarding, mass, organolmegaly, rebound, tenderness Rectal exam: PRESENT: deferred Extremities exam: PRESENT: full ROM. ABSENT: calf tenderness, clubbing, pedal edema Neurological exam: PRESENT: alert, awake, oriented to person, oriented to place, oriented to time, oriented to situation, CN II-XII grossly intact. ABSENT: motor sensory deficit Psychiatric exam: PRESENT: appropriate affect, normal mood. ABSENT: homicidal ideation, suicidal ideation Results Laboratory Results: 03/05/20 05:50 03/05/20 05:50 03/05/20 03/05/20 05:50 05:50 WBC 8.2 RBC 3.00 L Hgb 9.5 L Hct 27.7 L MCV 92 MCH 31.8 MCHC 34.4 RDW 15.8 H Plt Count 212 Seg Neutrophils % 55.6 Sodium 129.2 L Potassium 4.1 Chloride 95 L Carbon Dioxide 27 Anion Gap 7 BUN 11 Creatinine 1.04 Est GFR ( Amer) > 60 Glucose 92 Calcium 8.3 L Magnesium 1.8 Total Bilirubin 1.3 AST 21 Alkaline Phosphatase 92 Total Protein 5.5 L Albumin 2.7 L 03/02/20 12:00 NT-Pro-B Natriuret Pep 2620 H Impressions: Chest X-Ray 03/02/20 12:26 IMPRESSION: NO ACUTE FINDINGS. Assessment and Plan - Diagnosis (1) Diarrhea Qualifiers: Diarrhea type: presumed infectious Qualified Code(s): R19.7 - Diarrhea, unspecified Is this a current diagnosis for this admission?: Yes Plan: 03/02/2020 Being on antibiotics 2 weeks ago (Keflex for UTI) there is a high probability that the patient has C. difficile colitis. This would certainly explain the watery diarrhea. C. difficile testing is pending. We will need to balance his fluid intake to compensate for a fluid bolus. Along with that we will need to correct electrolyte abnormalities. C. difficile testing should be back shortly. If there is positive, as I anticipate, will start oral vancomycin therapy. We will also put the patient on contact precautions. 03/03/2020 C. difficile confirmed 03/04/20-patient admitted with C. difficile diarrhea and contact solution, has 1 loose stool this morning. Receiving p.o. vancomycin at this time. Plan is to continue the present management. 03/05/20-C. difficile positive on p.o. vancomycin. No diarrhea is reported today. (2) Hypokalemia Is this a current diagnosis for this admission?: Yes Plan: 03/02/2020 Secondary to the diarrhea. We will increase her potassium supplementation. Because of the diarrhea I will likely give intravenous potassium initially and continue her oral potassium. 03/03/2020 Still low. I increased the oral potassium dosing. We will likely need to decrease as her diarrhea subsides. 03/04/2020-serum potassium today is 3.7 and the hypokalemia is resolving. 03/05/2020 serum potassium today is 4.1 and the hypokalemia is resolved. (3) Hyponatremia Is this a current diagnosis for this admission?: Yes Plan: 03/02/2020 Secondary to diarrhea most likely. Will be receiving gentle IV fluids to b alance fluid loss from diarrhea. May also need to fluid restrict her from an oral standpoint but I believe the saline and stopping the diarrhea will correct her sodium. 03/03/2020 Monitor balance fluid loss with IV fluids versus her sodium level. We will continue to monitor and has diarrhea frequency consider sleep restriction. 03/04/2020-patient with hypokalemia serum sodium is 128 today. Asymptomatic. Plan is to continue same management. Patient has a history of heart failure to watch for the fluid overload. Patient is on fluid restriction. 03/05/2020-serum sodium is persistently low 129. Gradually improving. Patient is placed on fluid restriction and to continue directly therapy. Hyponatremia may be secondary to diuretics. (4) Hypoalbuminemia Is this a current diagnosis for this admission?: No (5) Edema of both lower legs Is this a current diagnosis for this admission?: Yes Plan: 03/02/2020 Leg elevation and IV albumin at this point. I will resume diuretic therapy tomorrow. Her morbid obesity is also a contributing factor. 03/03/2020 Multifactorial. Keep legs elevated for now. 03/04/2020-edema of the lower extremities significantly improved as per the patie nt. 03/05/2020-edema of the lower extremities (6) Longstanding persistent atrial fibrillation Is this a current diagnosis for this admission?: No Plan: 03/02/2020 The patient has a pacemaker. Right now she is exhibiting a paced rhythm. Will monitor heart rate with vital signs. She does remain on anticoagulation. Will need to watch for blood in the stool if in fact there is a colitis. Even with pronounced diarrhea there could be bleeding. 03/03/2020 Continue to monitor on telemetry. Continue metoprolol vital signs with sta nding. 03/04/2020-heart rate is around 74 today. Well-controlled. Patient has history of persistent atrial fibrillation. Has a pacemaker. To continue metoprolol and she is on anticoagulation with aphixiban. 03/05/20-heart rate in the 80s.. to continue metoprolol and aphixban (7) Venous stasis Is this a current diagnosis for this admission?: No (8) Morbid obesity Is this a current diagnosis for this admission?: No Plan: 03/02/2020 Her BMI of 52 significantly complicates several comorbidities. At this point aggressive diuresis would be the only way to manage her condition. Some of this certainly is water weight but only a small fraction. - Plan Summary Summary: 03/02/2020 Vital signs listed oxygen saturations at 67% at one-point. I believe this was monitor error. The patient is not on oxygen therapy. I do not believe the patient meets sepsis criteria either. We will need to administer IV fluids carefully. She will receive albumin to try and limit third spacing due to decreased oncotic pressure.
[2020-03-05] MEDS ORDERED: CLOTRIMAZOLE/BETAMETHASONE DIP CREAM 15 GM TOP ONE (13:00)
[2020-03-06] MEDS: VANCOMYCIN HCL INJ 500 MG VIAL PO SCH ×4 (03:09→21:18)
[2020-03-06 05:46] LABS: ABSOLUTE BASOPHILS # (AUTO) 0.1 10^3/uL (0.0-0.2); ABSOLUTE EOSINOPHILS # (AUTO) 0.3 10^3/uL (0.0-0.6); ABSOLUTE LYMPHOCYTES (AUTO) 2.6 10^3/uL (0.5-4.7); ABSOLUTE MONOCYTES (AUTO) 0.9 10^3/uL (0.1-1.4); BASOPHILS % (AUTO) 0.6 % (0-2); EOSINOPHILS % (AUTO) 3.5 % (0-6); HEMATOCRIT 29.2 % (36.0-47.0); MEAN CORPUSCULAR HEMOGLOBIN 31.4 pg (27.0-33.4); MEAN CORPUSCULAR HGB CONC 34.2 g/dL (32.0-36.0); MEAN CORPUSCULAR VOLUME 92 fl (80-97); MONOCYTES % (AUTO) 10.1 % (3-13); PLATELET COUNT 212 10^3/uL (150-450); RED BLOOD COUNT 3.17 10^6/uL (3.72-5.28); RED CELL DISTRIBUTION WIDTH 15.9 % (11.5-14.0); SEGMENTED NEUTROPHILS % (AUTO) 56.8 % (42-78); TOTAL CELLS COUNTED % (AUTO) 100 %; WHITE BLOOD COUNT 8.9 10^3/uL (4.0-10.5)
[2020-03-06 05:59] LABS: ALBUMIN 2.9 g/dL (3.5-5.0); ALKALINE PHOSPHATASE 94 U/L (38-126); ASPARTATE AMINO TRANSFERASE 26 U/L (14-36); BILIRUBIN,DIRECT 0.3 mg/dL (0.0-0.4); BILIRUBIN,TOTAL 1.1 mg/dL (0.2-1.3); BLOOD UREA NITROGEN 12 mg/dL (7-20); CALCIUM 8.5 mg/dL (8.4-10.2); GLUCOSE 88 mg/dL (75-110); POTASSIUM 4.5 mmol/L (3.6-5.0); TOTAL PROTEIN 5.8 g/dL (6.3-8.2)
[2020-03-06 06:05] LABS: CARBON DIOXIDE 28 mmol/L (22-30); CHLORIDE 96 mmol/L (98-107)
[2020-03-06 06:07] LABS: ANION GAP 4 (5-19)
[2020-03-06] MEDS: GABAPENTIN 100 MG CAPSULE PO SCH ×3 (06:19→21:18)
--- NOTE | 2020-03-06 10:47 | PDOC PROGRESS REPORT ---
Subjective Progress Note for:: 03/06/20 Subjective:: 89 year old female who I discharged on February 17 from [facility]. At that time her primary diagnosis is anasarca with acute on chronic heart failure as well as a urinary tract infection. She was to complete 3 more days of outpatient antibiotic therapy with Keflex. Patient states that 4 days ago she began to notice diarrhea. This progressively worsened to watery diarrhea with urgency and frequency. She has a hemorrhoid so she always reports trace blood but there was no more than her baseline amount. She states that her edema is returning. She denies fever or chills. She said her appetite is been very poor but she is trying to take liquids as best she can. She has a history of atrial fibrillation, hypertension and hyperlipidemia. She is on chronic anticoagulation with Eliquis. She is morbidly obese and has gastroesophageal reflux as well as arthritis. She complains of the "cellulitis "in her right leg. I did spend a minute explained to her that it was more likely venous stasis dermatitis or thrombophlebitis and not infection. On exam she is quite talkative. Her temperature is only 99 F. Pulse and blood pressure are stable. She has already received 1 L of fluid. Her white blood cell count is slightly elevated at 14.2. She is anemic with a hemoglobin of 10.8 and a normal platelet count. She is hyponatremic with a sodium of 126.7 and hypokalemic with a potassium of 3.0. Total bilirubin is 1.8 and her serum albumin is only 2.8. A stool is being sent for C. difficile. The urine has been collected and is being sent for urinalysis with reflex to culture. Blood cultures have been detected. She has been given 1 dose of IV metronidazole. 03/04/2020-patient admitted with C. difficile diarrhea. On contact isolation. Has 1 loose bowel movement this morning. Receiving p.o. vancomycin at this time. Comfortably in the bed communicating well. Not in distress. 03/05/2020-no diarrhea is reported. Patient is C. difficile positive and on p.o. vancomycin. Refused physical therapy. Requesting to take a bath and requesting cream to apply to the lower extremities. Other than that she is doing well. Edema is improving. Pressures are stable. 03/06/2020-patient is positive for C. difficile on p.o. vancomycin diarrhea is improving. Patient is expressing desire to stay 1 more day. Reason For Visit: DIARRHEA-POSSIBLE C.DIFFICILE HYPONATREMIA ANEMIA Physical Exam Vital Signs: Temp Pulse Resp BP Pulse Ox 97.7 F 62 18 127/74 H 98 03/06/20 04:56 03/06/20 04:56 03/06/20 04:56 03/06/20 04:56 03/06/20 04:56 Intake & Output 03/05/20 03/06/20 03/07/20 06:59 06:59 06:59 Intake Total 1822 260 Balance 1822 260 Weight 142.2 kg 139.3 kg General appearance: PRESENT: no acute distress, morbidly obese Head exam: PRESENT: atraumatic Eye exam: PRESENT: PERRLA Ear exam: PRESENT: normal external ear exam Mouth exam: PRESENT: moist, tongue midline Teeth exam: PRESENT: poor dentation Neck exam: ABSENT: carotid bruit, JVD, lymphadenopathy, thyromegaly Respiratory exam: PRESENT: decreased breath sounds Cardiovascular exam: PRESENT: RRR. ABSENT: diastolic murmur, rubs, systolic murmur Vascular exam: PRESENT: normal capillary refill GI/Abdominal exam: PRESENT: normal bowel sounds, soft. ABSENT: distended, guarding, mass, organolmegaly, rebound, tenderness Rectal exam: PRESENT: deferred Extremities exam: PRESENT: full ROM. ABSENT: calf tenderness, clubbing, pedal edema Neurological exam: PRESENT: alert, awake, oriented to person, oriented to place, oriented to time, oriented to situation, CN II-XII grossly intact. ABSENT: motor sensory deficit Psychiatric exam: PRESENT: appropriate affect, normal mood. ABSENT: homicidal ideation, suicidal ideation Results Laboratory Results: 03/06/20 05:06 03/06/20 05:06 03/06/20 03/06/20 05:06 05:06 WBC 8.9 RBC 3.17 L Hgb 10.0 L Hct 29.2 L MCV 92 MCH 31.4 MCHC 34.2 RDW 15.9 H Plt Count 212 Seg Neutrophils % 56.8 Sodium 128.4 L Potassium 4.5 Chloride 96 L Carbon Dioxide 28 Anion Gap 4 L BUN 12 Creatinine 1.10 Est GFR ( Amer) 57 L Glucose 88 Calcium 8.5 Magnesium 1.9 Total Bilirubin 1.1 AST 26 Alkaline Phosphatase 94 Total Protein 5.8 L Albumin 2.9 L 03/02/20 12:00 NT-Pro-B Natriuret Pep 2620 H Impressions: Chest X-Ray 03/02/20 12:26 IMPRESSION: NO ACUTE FINDINGS. Assessment and Plan - Diagnosis (1) Diarrhea Qualifiers: Diarrhea type: presumed infectious Qualified Code(s): R19.7 - Diarrhea, unspecified Is this a current diagnosis for this admission?: Yes Plan: 03/02/2020 Being on antibiotics 2 weeks ago (Keflex for UTI) there is a high probability that the patient has C. difficile colitis. This would certainly explain the watery diarrhea. C. difficile testing is pending. We will need to balance his fluid intake to compensate for a fluid bolus. Along with that we will need to correct electrolyte abnormalities. C. difficile testing should be back shortly. If there is positive, as I anticipate, will start oral vancomycin therapy. We will also put the patient on contact precautions. 03/03/2020 C. difficile confirmed 03/04/20-patient admitted with C. difficile diarrhea and contact solution, has 1 loose stool this morning. Receiving p.o. vancomycin at this time. Plan is to continue the present management. 03/05/20-C. difficile positive on p.o. vancomycin. No diarrhea is reported today. 03/06/20-patient is receiving p.o. vancomycin for C. difficile. Diarrhea is improving. (2) Hypokalemia Is this a current diagnosis for this admission?: Yes Plan: 03/02/2020 Secondary to the diarrhea. We will increase her potassium supplementation. Because of the diarrhea I will likely give intravenous potassium initially and continue her oral potassium. 03/03/2020 Still low. I increased the oral potassium dosing. We will likely need to decrease as her diarrhea subsides. 03/04/2020-serum potassium today is 3.7 and the hypokalemia is resolving. 03/05/2020 serum potassium today is 4.1 and the hypokalemia is resolved. 03/06/2020-hyperkalemia resolved. Latest serum potassium is 4.5. (3) Hyponatremia Is this a current diagnosis for this admission?: Yes Plan: 03/02/2020 Secondary to diarrhea most likely. Will be receiving gentle IV fluids to balance fluid loss from diarrhea. May also need to fluid restrict her from an oral standpoint but I believe the saline and stopping the diarrhea will correct her sodium. 03/03/2020 Monitor balance fluid loss with IV fluids versus her sodium level. We will continue to monitor and has diarrhea frequency consider sleep restriction. 03/04/2020-patient with hypokalemia serum sodium is 128 today. Asymptomatic. Plan is to continue same management. Patient has a history of heart failure to watch for the fluid overload. Patient is on fluid restriction. 03/05/2020-serum sodium is persistently low 129. Gradually improving. Patient is placed on fluid restriction and to continue directly therapy. Hyponatremia may be secondary to diuretics. 03/06/20- serum sodium is 128. Persistent hyponatremia may be secondary to diuretic therapy. (4) Hypoalbuminemia Is this a current diagnosis for this admission?: No Plan: 03/02/2020 The patient's albumin was only 2.8. This is down from 3.5 several weeks ago. She should never felt much protein just with diarrhea. It could be delusional however I will give her 25 g of albumin and reassess. 03/03/2020 Received albumin. Will reassess tomorrow. Likely combination of age, diet and chronic illness. 03/04/2020-serum albumin is today is 2.5. Edema of the lower extremities significantly improving as per the patient. (5) Edema of both lower legs Is this a current diagnosis for this admission?: Yes Plan: 03/02/2020 Leg elevation and IV albumin at this point. I will resume diuretic therapy tomorrow. Her morbid obesity is also a contributing factor. 03/03/2020 Multifactorial. Keep legs elevated for now. 03/04/2020-edema of the lower extremities significantly improved as per the patient. 03/05/2020-edema of the lower extremities (6) Longstanding persistent atrial fibrillation Is this a current diagnosis for this admission?: No Plan: 03/02/2020 The patient has a pacemaker. Right now she is exhibiting a paced rhythm. Will monitor heart rate with vital signs. She does remain on anticoagulation. Will need to watch for blood in the stool if in fact there is a colitis. Even with pronounced diarrhea there could be bleeding. 03/03/2020 Continue to monitor on telemetry. Continue metoprolol vital signs with standing. 03/04/2020-heart rate is around 74 today. Well-controlled. Patient has history of persistent atrial fibrillation. Has a pacemaker. To continue metoprolol and she is on anticoagulation with aphixiban. 03/05/20-heart rate in the 80s.. to continue metoprolol and aphixban 03/06/2020-heart rate is around 62. Plan is to continue metoprolol and anticoagulation with apixaban. 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 This is mistaken for cellulitis many times. She would benefit from compression therapy. We do not have full leg sequential compression in-house. We will keep legs elevated when possible. Consider compression wraps. (8) Morbid obesity Is this a current diagnosis for this admission?: No Plan: 03/02/2020 Her BMI of 52 significantly complicates several comorbidities. At this point aggressive diuresis would be the only way to manage her condition. Some of this certainly is water weight but only a small fraction. - Plan Summary Summary: 03/02/2020 Vital signs listed oxygen saturations at 67% at one-point. I believe this was monitor error. The patient is not on oxygen therapy. I do not believe the patient meets sepsis criteria either. We will need to administer IV fluids carefully. She will receive albumin to try and limit third spacing due to decreased oncotic pressure.
[2020-03-06] MEDS: APIXABAN 5 MG TABLET PO SCH ×2 (11:56→18:45)
[2020-03-06] MEDS: POTASSIUM CHLORIDE 10 MEQ TABLET.ER PO SCH ×2 (11:56→18:44)
[2020-03-06] MEDS: METOPROLOL SUCCINATE 50 MG TAB.SR.24H PO SCH (11:56)
[2020-03-06] MEDS: FAMOTIDINE 20 MG TABLET PO SCH ×2 (11:56→21:18)
[2020-03-06] MEDS: LACTOBACILLUS ACIDOPHILUS 250 MG TAB PO SCH ×2 (11:57→18:44)
[2020-03-07] MEDS: VANCOMYCIN HCL INJ 500 MG VIAL PO SCH ×2 (03:00→09:28)
[2020-03-07] MEDS: GABAPENTIN 100 MG CAPSULE PO SCH (05:26)
[2020-03-07 06:07] LABS: ABSOLUTE EOSINOPHILS # (AUTO) 0.2 10^3/uL (0.0-0.6); ABSOLUTE LYMPHOCYTES (AUTO) 2.6 10^3/uL (0.5-4.7); ABSOLUTE MONOCYTES (AUTO) 1.3 10^3/uL (0.1-1.4); ABSOLUTE NEUT (AUTO) 6.3 10^3/uL (1.7-8.2); BASOPHILS % (AUTO) 0.4 % (0-2); EOSINOPHILS % (AUTO) 2.3 % (0-6); HEMATOCRIT 28.6 % (36.0-47.0); HEMOGLOBIN 9.9 g/dL (12.0-15.5); LYMPHOCYTES % (AUTO) 25.1 % (13-45); MEAN CORPUSCULAR HEMOGLOBIN 31.8 pg (27.0-33.4); MEAN CORPUSCULAR HGB CONC 34.7 g/dL (32.0-36.0); MEAN CORPUSCULAR VOLUME 92 fl (80-97); PLATELET COUNT 193 10^3/uL (150-450); RED BLOOD COUNT 3.12 10^6/uL (3.72-5.28); RED CELL DISTRIBUTION WIDTH 15.6 % (11.5-14.0); SEGMENTED NEUTROPHILS % (AUTO) 60.2 % (42-78); TOTAL CELLS COUNTED % (AUTO) 100 %; WHITE BLOOD COUNT 10.4 10^3/uL (4.0-10.5)
[2020-03-07 06:34] LABS: ALKALINE PHOSPHATASE 106 U/L (38-126); ANION GAP 7 (5-19); ASPARTATE AMINO TRANSFERASE 25 U/L (14-36); BILIRUBIN,DIRECT 0.4 mg/dL (0.0-0.4); BILIRUBIN,TOTAL 1.3 mg/dL (0.2-1.3); BLOOD UREA NITROGEN 13 mg/dL (7-20); CALCIUM 8.8 mg/dL (8.4-10.2); CARBON DIOXIDE 26 mmol/L (22-30); CHLORIDE 96 mmol/L (98-107); GLUCOSE 92 mg/dL (75-110)
[2020-03-07 09:20] VITALS: BP 114/67
[2020-03-07] MEDS: LACTOBACILLUS ACIDOPHILUS 250 MG TAB PO SCH (09:28)
[2020-03-07] MEDS: FAMOTIDINE 20 MG TABLET PO SCH (09:28)
[2020-03-07] MEDS: APIXABAN 5 MG TABLET PO SCH (09:28)
[2020-03-07] MEDS: METOPROLOL SUCCINATE 50 MG TAB.SR.24H PO SCH (09:29)
[2020-03-07] MEDS ORDERED: FUROSEMIDE 80 MG TABLET PO SCH (10:00)
[2020-03-07] MEDS ORDERED: FUROSEMIDE 40 MG TABLET PO SCH (10:00)
--- NOTE | 2020-03-07 15:48 | PDOC DISCHARGE SUMMARY ---
Impression - Admit/DC Date/PCP Admission Date/Primary Care Provider: 03/02/20 16:03 JOEL BARRAGAN MD Discharge Date: 03/07/20 - Discharge Diagnosis (1) Diarrhea Is this a current diagnosis for this admission?: Yes (2) Hypokalemia Is this a current diagnosis for this admission?: Yes (3) Hyponatremia Is this a current diagnosis for this admission?: Yes (4) Hypoalbuminemia Is this a current diagnosis for this admission?: No (5) Edema of both lower legs Is this a current diagnosis for this admission?: Yes (6) Longstanding persistent atrial fibrillation Is this a current diagnosis for this admission?: No (7) Venous stasis Is this a current diagnosis for this admission?: No (8) Morbid obesity Is this a current diagnosis for this admission?: No - Assessment Summary: 03/02/2020 Vital signs listed oxygen saturations at 67% at one-point. I believe this was monitor error. The patient is not on oxygen therapy. I do not believe the patient meets sepsis criteria either. We will need to administer IV fluids carefully. She will receive albumin to try and limit third spacing due to decreased oncotic pressure.(1) Diarrhea Qualifiers: Diarrhea type: presumed infectious Qualified Code(s): R19.7 - Diarrhea, unspecified Is this a current diagnosis for this admission?: Yes Plan: 03/02/2020 Being on antibiotics 2 weeks ago (Keflex for UTI) there is a high probability that the patient has C. difficile colitis. This would certainly explain the watery diarrhea. C. difficile testing is pending. We will need to balance his fluid intake to compensate for a fluid bolus. Along with that we will need to correct electrolyte abnormalities. C. difficile testing should be back shortly. If there is positive, as I anticipate, will start oral vancomycin therapy. We will also put the patient on contact precautions. 03/03/2020 C. difficile confirmed 03/04/20-patient admitted with C. difficile diarrhea and contact solution, has 1 loose stool this morning. Receiving p.o. vancomycin at this time. Plan is to continue the present management. 03/05/20-C. difficile positive on p.o. vancomycin. No diarrhea is reported today. 03/06/20-patient is receiving p.o. vancomycin for C. difficile. Diarrhea is improving. 03/07/2020-diarrhea is resolved going home on p.o. vancomycin for 5 days. (2) Hypokalemia Is this a current diagnosis for this admission?: Yes Plan: 03/02/2020 Secondary to the diarrhea. We will increase her potassium supplementation. Because of the diarrhea I will likely give intravenous potassium initially and continue her oral potassium. 03/03/2020 Still low. I increased the oral potassium dosing. We will likely need to decrease as her diarrhea subsides. 03/04/2020-serum potassium today is 3.7 and the hypokalemia is resolving. 03/05/2020 serum potassium today is 4.1 and the hypokalemia is resolved. 03/06/2020-hyperkalemia resolved. Latest serum potassium is 4.5. (3) Hyponatremia Is this a current diagnosis for this admission?: Yes Plan: 03/02/2020 Secondary to diarrhea most likely. Will be receiving gentle IV fluids to balance fluid loss from diarrhea. May also need to fluid restrict her from an oral standpoint but I believe the saline and stopping the diarrhea will correct her sodium. 03/03/2020 Monitor balance fluid loss with IV fluids versus her sodium level. We will continue to monitor and has diarrhea frequency consider sleep restriction. 03/04/2020-patient with hypokalemia serum sodium is 128 today. Asymptomatic. Plan is to continue same management. Patient has a history of heart failure to watch for the fluid overload. Patient is on fluid restriction. 03/05/2020-serum sodium is persistently low 129. Gradually improving. Patient is placed on fluid restriction and to continue directly therapy. Hyponatremia may be secondary to diuretics. 03/06/20- serum sodium is 128. Persistent hyponatremia may be secondary to diuretic therapy. 03/07/20-patient has persistent hyponatremia most likely secondary to diuretic use. (4) Hypoalbuminemia Is this a current diagnosis for this admission?: No Plan: 03/02/2020 The patient's albumin was only 2.8. This is down from 3.5 several weeks ago. She should never felt much protein just with diarrhea. It could be delusional however I will give her 25 g of albumin and reassess. 03/03/2020 Received albumin. Will reassess tomorrow. Likely combination of age, diet and chronic illness. 03/04/2020-serum albumin is today is 2.5. Edema of the lower extremities significantly improving as per the patient. (5) Edema of both lower legs Is this a current diagnosis for this admission?: Yes Plan: 03/02/2020 Leg elevation and IV albumin at this point. I will resume diuretic therapy tomorrow. Her morbid obesity is also a contributing factor. 03/03/2020 Multifactorial. Keep legs elevated for now. 03/04/2020-edema of the lower extremities significantly improved as per the patie nt. 03/05/2020-edema of the lower extremities 03/07/2020-edema of the lower extremities resolving. (6) Longstanding persistent atrial fibrillation Is this a current diagnosis for this admission?: No Plan: 03/02/2020 The patient has a pacemaker. Right now she is exhibiting a paced rhythm. Will monitor heart rate with vital signs. She does remain on anticoagulation. Will need to watch for blood in the stool if in fact there is a colitis. Even with pronounced diarrhea there could be bleeding. 03/03/2020 Continue to monitor on telemetry. Continue metoprolol vital signs with standing. 03/04/2020-heart rate is around 74 today. Well-controlled. Patient has history of persistent atrial fibrillation. Has a pacemaker. To continue metoprolol and she is on anticoagulation with aphixiban. 03/05/20-heart rate in the 80s.. to continue metoprolol and aphixban 03/06/2020-heart rate is around 62. Plan is to continue metoprolol and anticoagulation with apixaban. 03/07/2020-heart rate is around 70 patient is advised to continue metoprolol and anticoagulation with Eliquis. 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 This is mistaken for cellulitis many times. She would benefit from compression therapy. We do not have full leg sequential compression in-house. We will keep legs elevated when possible. Consider compression wraps. (8) Morbid obesity Is this a current diagnosis for this admission?: No Plan: 03/02/2020 Her BMI of 52 significantly complicates several comorbidities. At this point aggressive diuresis would be the only way to manage her condition. Some of this certainly is water weight but only a small fraction. - Plan Summary Summary: 03/02/2020 Vital signs listed oxygen saturations at 67% at one-point. I believe this was monitor error. The patient is not on oxygen therapy. I do not believe the patient meets sepsis criteria either. We will need to administer IV fluids carefully. She will receive albumin to try and limit third spacing due to decreased oncotic pressure. - Additional Information Resuscitation Status: Full Code Discharge Diet: Cardiac Discharge Activity: Activity As Tolerated Referrals: JOEL BARRAGAN MD [Primary Care Provider] - 03/13/20 3:45 pm Prescriptions: Lactobacillus Acidophilus [Bacid 250 mg Tablet] 500 mg PO BID #60 tab Famotidine [Pepcid 20 mg Tablet] 20 mg PO Q12 #60 tablet Vancomycin HCl [Vancocin Inj 500 mg Vial] 250 mg PO Q6A 5 Days #20 vial Home Medications: Apixaban [Eliquis 5 mg Tablet] 5 mg PO BID 02/16/20 Gabapentin [Neurontin 100 mg Capsule] 100 mg PO Q8 02/16/20 Metoprolol Succinate [Toprol Xl 50 mg Tab.sr] 50 mg PO DAILY 02/16/20 Furosemide [Lasix 40 mg Tablet] 80 mg PO BID #120 tablet 02/18/20 Potassium Chloride 20 meq PO BID #60 tablet.er 02/18/20 Famotidine [Pepcid 20 mg Tablet] 20 mg PO Q12 #60 tablet 03/07/20 Lactobacillus Acidophilus [Bacid 250 mg Tablet] 500 mg PO BID #60 tab 03/07/20 Vancomycin HCl [Vancocin Inj 500 mg Vial] 250 mg PO Q6A 5 Days #20 vial 03/07/20 History of Present Illiness History of Present Illness: ROLDAN SCHAEFER is a 89 year old female 89 year old female who I discharged on February 17 from [facility]. At that time her primary diagnosis is anasarca with acute on chronic heart failure as well as a urinary tract infection. She was to complete 3 more days of outpatient antibiotic therapy with Keflex. Patient states that 4 days ago she began to notice diarrhea. This progressively worsened to watery diarrhea with urgency and frequency. She has a hemorrhoid so she always reports trace blood but there was no more than her baseline amount. She states that her edema is returning. She denies fever or chills. She said her appetite is been very poor but she is trying to take liquids as best she can. She has a history of atrial fibrillation, hypertension and hyperlipidemia. She is on chronic anticoagulation with Eliquis. She is morbidly obese and has gastroesophageal reflux as well as arthritis. She complains of the "cellulitis "in her right leg. I did spend a minute explained to her that it was more likely venous stasis dermatitis or thrombophlebitis and not infection. On exam she is quite talkative. Her temperature is only 99 F. Pulse and blood pressure are stable. She has already received 1 L of fluid. Her white blood cell count is slightly elevated at 14.2. She is anemic with a hemoglobin of 10.8 and a normal platelet count. She is hyponatremic with a sodium of 126.7 and hypokalemic with a potassium of 3.0. Total bilirubin is 1.8 and her serum albumin is only 2.8. A stool is being sent for C. difficile. The urine has been collected and is being sent for urinalysis with reflex to culture. Blood cultures have been detected. She has been given 1 dose of IV metronidazole. Hospital Course Hospital Course: 89 year old female who I discharged on February 17 from [facility]. At that time her primary diagnosis is anasarca with acute on chronic heart failure as well as a urinary tract infection. She was to complete 3 more days of outpatient antibiotic therapy with Keflex. Patient states that 4 days ago she began to notice diarrhea. This progressively worsened to watery diarrhea with urgency and frequency. She has a hemorrhoid so she always reports trace blood but there was no more than her baseline amount. She states that her edema is returning. She denies fever or chills. She said her appetite is been very poor but she is trying to take liquids as best she can. She has a history of atrial fibrillation, hypertension and hyperlipidemia. She is on chronic anticoagulation with Eliquis. She is morbidly obese and has gastroesophageal reflux as well as arthritis. She complains of the "cellulitis "in her right leg. I did spend a minute explained to her that it was more likely venous stasis dermatitis or thrombophlebitis and not infection. On exam she is quite talkative. Her temperature is only 99 F. Pulse and blood pressure are stable. She has already received 1 L of fluid. Her white blood cell count is slightly elevated at 14.2. She is anemic with a hemoglobin of 10.8 and a normal platelet count. She is hyponatremic with a sodium of 126.7 and hypokalemic with a potassium of 3.0. Total bilirubin is 1.8 and her serum albumin is only 2.8. A stool is being sent for C. difficile. The urine has been collected and is being sent for urinalysis with reflex to culture. Blood cultures have been detected. She has been given 1 dose of IV metronidazole. 03/04/2020-patient admitted with C. difficile diarrhea. On contact isolation. Has 1 loose bowel movement this morning. Receiving p.o. vancomycin at this time. Comfortably in the bed communicating well. Not in distress. 03/05/2020-no diarrhea is reported. Patient is C. difficile positive and on p.o. vancomycin. Refused physical therapy. Requesting to take a bath and requesting cream to apply to the lower extremities. Other than that she is doing well. Edema is improving. Pressures are stable. 03/06/2020-patient is positive for C. difficile on p.o. vancomycin diarrhea is improving. Patient is expressing desire to stay 1 more day. 03/07/20-patient is going home on p.o. vancomycin for 5 days. Diarrhea is resolved. Physical Exam Vital Signs: Temp Pulse Resp BP Pulse Ox 98.0 F 62 19 114/67 99 03/07/20 11:36 03/07/20 11:36 03/07/20 11:36 03/07/20 11:36 03/07/20 11:36 Intake & Output 03/06/20 03/07/20 03/08/20 06:59 06:59 06:59 Intake Total 260 420 300 Balance 260 420 300 Weight 139.3 kg 139.3 kg General appearance: PRESENT: no acute distress, morbidly obese Eye exam: PRESENT: PERRLA Mouth exam: PRESENT: dry mucosa Teeth exam: PRESENT: poor dentation Neck exam: ABSENT: carotid bruit, JVD, lymphadenopathy, thyromegaly Respiratory exam: PRESENT: decreased breath sounds Cardiovascular exam: PRESENT: RRR. ABSENT: diastolic murmur, rubs, systolic murmur GI/Abdominal exam: PRESENT: normal bowel sounds, soft. ABSENT: distended, guarding, mass, organolmegaly, rebound, tenderness Rectal exam: PRESENT: deferred Extremities exam: PRESENT: +1 edema Neurological exam: PRESENT: alert, awake, oriented to person, oriented to place, oriented to time, oriented to situation, CN II-XII grossly intact. ABSENT: motor sensory deficit Psychiatric exam: PRESENT: appropriate affect, normal mood. ABSENT: homicidal ideation, suicidal ideation Results Laboratory Results: WBC 10.4 10^3/uL (4.0-10.5) 03/07/20 04:57 RBC 3.12 10^6/uL (3.72-5.28) L 03/07/20 04:57 Hgb 9.9 g/dL (12.0-15.5) L 03/07/20 04:57 Hct 28.6 % (36.0-47.0) L 03/07/20 04:57 MCV 92 fl (80-97) 03/07/20 04:57 MCH 31.8 pg (27.0-33.4) 03/07/20 04:57 MCHC 34.7 g/dL (32.0-36.0) 03/07/20 04:57 RDW 15.6 % (11.5-14.0) H 03/07/20 04:57 Plt Count 193 10^3/uL (150-450) 03/07/20 04:57 Lymph % (Auto) 25.1 % (13-45) 03/07/20 04:57 [place] % (Auto) 12.0 % (3-13) 03/07/20 04:57 Eos % (Auto) 2.3 % (0-6) 03/07/20 04:57 Baso % (Auto) 0.4 % (0-2) 03/07/20 04:57 Reticulocyte # 0.072 10^6/uL (0.028-0.122) 03/03/20 05:18 Absolute Neuts (auto) 6.3 10^3/uL (1.7-8.2) 03/07/20 04:57 Absolute Lymphs (auto) 2.6 10^3/uL (0.5-4.7) 03/07/20 04:57 Absolute Monos (auto) 1.3 10^3/uL (0.1-1.4) 03/07/20 04:57 Absolute Eos (auto) 0.2 10^3/uL (0.0-0.6) 03/07/20 04:57 Absolute Basos (auto) 0.0 10^3/uL (0.0-0.2) 03/07/20 04:57 Seg Neutrophils % 60.2 % (42-78) 03/07/20 04:57 Retic Count (auto) 2.44 % (0.66-2.85) 03/03/20 05:18 Sodium 128.7 mmol/L (137-145) L 03/07/20 04:57 Potassium 5.0 mmol/L (3.6-5.0) 03/07/20 04:57 Chloride 96 mmol/L (98-107) L 03/07/20 04:57 Carbon Dioxide 26 mmol/L (22-30) 03/07/20 04:57 Anion Gap 7 (5-19) 03/07/20 04:57 BUN 13 mg/dL (7-20) 03/07/20 04:57 Creatinine 1.16 mg/dL (0.52-1.25) 03/07/20 04:57 Est GFR ( Amer) 53 (>60) L 03/07/20 04:57 Est GFR (MDRD) Non-Af 44 (>60) L 03/07/20 04:57 Glucose 92 mg/dL (75-110) 03/07/20 04:57 Lactic Acid 1.9 mmol/L (0.7-2.1) 03/02/20 12:46 Calcium 8.8 mg/dL (8.4-10.2) 03/07/20 04:57 Phosphorus 2.7 mg/dL (2.5-4.5) 03/03/20 05:18 Magnesium 1.8 mg/dL (1.6-2.3) 03/07/20 04:57 Iron 39.5 ug/dL (37-170) 03/03/20 05:18 TIBC 304 ug/dL (250-450) 03/03/20 05:18 % Saturation 13 % 03/03/20 05:18 Transferrin 215.26 mg/dL (206.00-381.00) 03/03/20 05:18 Ferritin 57.20 ng/mL (11.1-264.0) 03/03/20 05:18 Total Bilirubin 1.3 mg/dL (0.2-1.3) 03/07/20 04:57 Direct Bilirubin 0.4 mg/dL (0.0-0.4) 03/07/20 04:57 Neonat Total Bilirubin Not Reportable 03/07/20 04:57 Neonat Direct Bilirubin Not Reportable 03/07/20 04:57 Neonat Indirect Bili Not Reportable 03/07/20 04:57 AST 25 U/L (14-36) 03/07/20 04:57 ALT 11 U/L (<35) 03/07/20 04:57 Alkaline Phosphatase 106 U/L (38-126) 03/07/20 04:57 NT-Pro-B Natriuret Pep 2620 pg/mL (<450) H 03/02/20 12:00 Total Protein 6.0 g/dL (6.3-8.2) L 03/07/20 04:57 Albumin 3.0 g/dL (3.5-5.0) L 03/07/20 04:57 Vitamin B12 > 1000.0 pg/mL (239-931) H 03/03/20 05:18 Folate 8.30 ng/mL (>2.76) 03/03/20 05:18 Urine Color OJSE 03/02/20 14:47 Urine Appearance CLEAR 03/02/20 14:47 Urine pH 5.0 (5.0-9.0) 03/02/20 14:47 Ur Specific [place] 1.016 03/02/20 14:47 Urine Protein NEGATIVE mg/dL (NEGATIVE) 03/02/20 14:47 Urine Glucose (UA) NEGATIVE mg/dL (NEGATIVE) 03/02/20 14:47 Urine Ketones NEGATIVE mg/dL (NEGATIVE) 03/02/20 14:47 Urine Blood SMALL (NEGATIVE) H 03/02/20 14:47 Urine Nitrite (Reflex) NEGATIVE (NEGATIVE) 03/02/20 14:47 Urine Bilirubin NEGATIVE (NEGATIVE) 03/02/20 14:47 Urine Urobilinogen NEGATIVE mg/dL (<2.0) 03/02/20 14:47 Leukocyte Esterase Rfl NEGATIVE (NEGATIVE) 03/02/20 14:47 Urine RBC (Auto) 2 /HPF 03/02/20 14:47 U Hyaline Cast (Auto) 59 /LPF 03/02/20 14:47 Urine Bacteria (Auto) TRACE /HPF 03/02/20 14:47 Urine WBC (Reflex) 3 /HPF 03/02/20 14:47 Squamous Epi Cells Auto 1 /HPF 03/02/20 14:47 Urine Mucus (Auto) FEW /LPF 03/02/20 14:47 Urine Ascorbic Acid NEGATIVE (NEGATIVE) 03/02/20 14:47 POC Stool Occult Blood POSITIVE (NEGATIVE) 03/02/20 13:04 Stl C. Difficile GDH Ag POSITIVE (NEGATIVE) 03/02/20 21:25 Stl C.difficile Tox A&B POSITIVE (NEGATIVE) 03/02/20 21:25 03/02/20 12:00 NT-Pro-B Natriuret Pep 2620 H Impressions: Chest X-Ray 03/02/20 12:26 IMPRESSION: NO ACUTE FINDINGS. Plan Time Spent: Greater than 30 Minutes Stroke Is this a Stroke Patient?: No Acute Heart Failure - Is this a Heart Failure Patient?: No
== END 2020-03-07 13:00 | disposition home health service (06) | DRG 372 ==
LOC: ER 11:42 → EH 16:03 → 4W 19:03
PROVIDERS: ADMIT Hospitalist; ATTEND Internal Medicine
DX: A04.72 Enterocolitis due to Clostridium difficile, not specified as recurrent (principal); E87.1 Hypo-osmolality and hyponatremia; I48.11 Longstanding persistent atrial fibrillation; Z68.43 Body mass index [BMI] 50.0-59.9, adult; I10 Essential (primary) hypertension; E87.6 Hypokalemia; E78.5 Hyperlipidemia, unspecified; K21.9 Gastro-esophageal reflux disease without esophagitis; I87.8 Other specified disorders of veins; E66.01 Morbid (severe) obesity due to excess calories; Z79.01 Long term (current) use of anticoagulants
CPT/HCPCS: 36415; 71045; 80048; 80053; 81001; 82040; 82270; 82607; 82728; 82746; 83540; 83550; 83605; 83735; 83880; 84100; 84466; 85025; 85027; 85045; 87040; 87324; 87449; 93005; 93010; 96365; 99285; J3370; J3480; J3490; J7030; J7120; P9047

== ENCOUNTER 2020-03-21 19:12 | Emergency (ER) | payer MEDICARE ==
[2020-03-21 20:27] LABS: ABSOLUTE BASOPHILS # (AUTO) 0.1 10^3/uL (0.0-0.2); ABSOLUTE EOSINOPHILS # (AUTO) 0.2 10^3/uL (0.0-0.6); ABSOLUTE LYMPHOCYTES (AUTO) 1.5 10^3/uL (0.5-4.7); ABSOLUTE MONOCYTES (AUTO) 0.6 10^3/uL (0.1-1.4); TOTAL CELLS COUNTED % (AUTO) 100 %
[2020-03-21 20:32] LABS: ALBUMIN 3.2 g/dL (3.5-5.0); ALKALINE PHOSPHATASE 122 U/L (38-126); ANION GAP 5 (5-19); ASPARTATE AMINO TRANSFERASE 30 U/L (14-36); BILIRUBIN,DIRECT 0.5 mg/dL (0.0-0.4); BILIRUBIN,TOTAL 1.6 mg/dL (0.2-1.3); BLOOD UREA NITROGEN 11 mg/dL (7-20); CALCIUM 9.1 mg/dL (8.4-10.2); CARBON DIOXIDE 30 mmol/L (22-30); CHLORIDE 99 mmol/L (98-107); GLUCOSE 121 mg/dL (75-110); POTASSIUM 4.1 mmol/L (3.6-5.0); TOTAL PROTEIN 6.3 g/dL (6.3-8.2)
[2020-03-21 20:33] LABS: ABSOLUTE NEUT (AUTO) 3.6 10^3/uL (1.7-8.2); EOSINOPHILS % (AUTO) 2.7 % (0-6); HEMATOCRIT 25.3 % (36.0-47.0); HEMOGLOBIN 8.5 g/dL (12.0-15.5); LYMPHOCYTES % (AUTO) 25.3 % (13-45); MEAN CORPUSCULAR HEMOGLOBIN 31.6 pg (27.0-33.4); MEAN CORPUSCULAR HGB CONC 33.7 g/dL (32.0-36.0); MEAN CORPUSCULAR VOLUME 94 fl (80-97); MONOCYTES % (AUTO) 9.8 % (3-13); PLATELET COUNT 251 10^3/uL (150-450); RED BLOOD COUNT 2.71 10^6/uL (3.72-5.28); RED CELL DISTRIBUTION WIDTH 16.8 % (11.5-14.0); SEGMENTED NEUTROPHILS % (AUTO) 61.2 % (42-78); WHITE BLOOD COUNT 5.9 10^3/uL (4.0-10.5)
[2020-03-21 20:35] LABS: APPEARANCE,URINE TURBID; BILIRUBIN,URINE NEGATIVE (NEGATIVE); COLOR,URINE YELLOW; GLUCOSE, URINE NEGATIVE (NEGATIVE); KETONES,URINE NEGATIVE (NEGATIVE); LEUKOCYTE ESTERASE,URINE NEGATIVE (NEGATIVE); NITRITE,URINE NEGATIVE (NEGATIVE); PROTEIN,URINE 30 mg/dL (NEGATIVE); URINE SPECIFIC GRAVITY 1.023
--- NOTE | 2020-03-21 21:02 | RADIOLOGY REPORT (SQ) ---
CLINICAL INDICATION: SOB. TECHNIQUE: A single portable AP view was obtained of the chest at 2028 hours. COMPARISON: March 02, 2020. FINDINGS: The cardiomediastinal silhouette is enlarged but stable with postsurgical change. The lungs definite congestive change, similar to prior. Patchy areas of interstitial alveolar space disease, similar to prior. No significant pleural fluid. No pneumothorax.. The visualized bones are unremarkable. IMPRESSION: Presumed chronic change. No adverse change from recent prior.
--- NOTE | 2020-03-21 22:09 | EKG REPORT ---
SEVERITY:- ABNORMAL ECG - VENTRICULAR-PACED COMPLEXES IVCD, CONSIDER ATYPICAL RBBB : Confirmed by: Eryn Dubose MD 21-Mar-2020 22:09:11
[2020-03-21] MEDS ORDERED: FUROSEMIDE INJ/PF 20 MG/2 ML SDV IV ONE (23:37)
[2020-03-21] MEDS ORDERED: ACETAMINOPHEN 325 MG TABLET PO ONE (23:37)
[2020-03-21] MEDS ORDERED: NITROFURANTOIN MONOHYD/M-CRYST 100 MG CAPSULE PO ONE (23:51)
--- NOTE | 2020-03-22 05:39 | ER Document Report ---
Entered by JO COLUNGA SCRIBE 03/21/20 [id number] Acting as scribe for:MICHELLE EMERSON IV, MD ED General - General Chief Complaint: Edema Stated Complaint: RETAINING FLUID Time Seen by Provider: 03/21/20 23:18 Mode of Arrival: Medic Information source: Patient Notes: This 89 year old female patient with a history of A fib on Eliquis, HTN, and HLD brought in by EMS from home presents to the ED today with complaints of bilateral lower extremity edema for the past x3 months. Patient states that her PCP Dr. Crowe increased her Lasix to 80 mg BID x1-2 days ago, but she has not started taking it yet per ED nurse. She also notes chronic mild cough and a slight headache. TRAVEL OUTSIDE OF THE [place] IN LAST 30 DAYS: No - Related Data Allergies/Adverse Reactions: Seasonal Allergies Allergy (Uncoded 03/02/20 12:14) Past Medical History - General Information source: Patient, [facility] Records - Social History Smoking Status: Never Smoker Cigarette use (# per day): No Chew tobacco use (# tins/day): No Smoking Education Provided: No Frequency of alcohol use: None Drug Abuse: None Lives with: Alone Family History: Reviewed & Not Pertinent Patient has suicidal ideation: No Patient has homicidal ideation: No - Past Medical History Cardiac Medical History: Reports: Hx Atrial Fibrillation - Paroxysmal on chronic Eliquis, Hx Hypercholesterolemia, Hx Hypertension - CONTROLLED WITH MEDS GI Medical History: Reports: Hx Gastroesophageal Reflux Disease Musculoskeletal Medical History: Reports Hx Arthritis Past Surgical History: Reports: Hx Pacemaker - SEE CHECKLIST, Other - Cataract surgery - Immunizations Hx Diphtheria, Pertussis, Tetanus Vaccination: No - Unsure Review of Systems - Review of Systems Constitutional: No symptoms reported EENT: No symptoms reported Cardiovascular: No symptoms reported Respiratory: See HPI, Short of breath Gastrointestinal: No symptoms reported Genitourinary: See HPI, Retention Female Genitourinary: No symptoms reported Musculoskeletal: See HPI, Leg swelling, Ankle swelling Skin: No symptoms reported Hematologic/Lymphatic: No symptoms reported Neurological/Psychological: See HPI, Headaches -: Yes All other systems reviewed and negative Physical Exam - Vital signs Vitals: Temp 97.7 F 03/21/20 19:13 - General General appearance: Alert In distress: None - HEENT Head: Normocephalic, Atraumatic Eyes: Normal Pupils: PERRL - Respiratory Respiratory status: No respiratory distress Chest status: Nontender Breath sounds: Normal Chest palpation: Normal - Cardiovascular Rhythm: Regular Heart sounds: Normal auscultation Murmur: No Friction rub: No Gallop: None auscultated - Abdominal Inspection: Normal Distension: No distension Bowel sounds: Normal Tenderness: Nontender - Abdomen soft Organomegaly: No organomegaly - Back Back: Normal, Nontender - Extremities General upper extremity: Normal inspection General lower extremity: Edema - Pitting edema to lower extremites bilaterally - Neurological Neuro grossly intact: Yes Orientation: AAOx4 T[place]ha Coma Scale Eye Opening: Spontaneous [place] Coma Scale Verbal: Oriented [place] Coma Scale Motor: Obeys Commands [place] Coma Scale Total: 15 - Psychological Associated symptoms: Normal affect, Normal mood - Skin Skin Temperature: Warm Skin Moisture: Dry Skin Color: Normal Course - Re-evaluation Re-evalutation: 03/22/20 02:04 Results of ED MSE discussed with patient. Patient is requesting that the following stay in place. This MD agreed to leaving the Gomez in place but instructed the patient to have it taken out by her PCP on 03/24/2020. All questions were answered prior to discharge. Emergency signs and symptoms, reasons to return to the emergency department discussed with patient. - Vital Signs Vital signs: Temp Pulse Resp BP Pulse Ox 97.7 F 20 109/59 L 94 03/21/20 19:21 03/22/20 01:01 03/22/20 01:01 03/22/20 01:01 - Laboratory Result Diagrams: 03/21/20 19:40 03/21/20 19:40 Laboratory results interpreted by me: 03/21/20 03/21/20 03/21/20 19:30 19:40 19:40 RBC 2.71 L Hgb 8.5 L Hct 25.3 L RDW 16.8 H Sodium 134.2 L Est GFR ( Amer) 58 L Est GFR (MDRD) Non-Af 48 L Glucose 121 H Total Bilirubin 1.6 H Direct Bilirubin 0.5 H NT-Pro-B Natriuret Pep Albumin 3.2 L Urine Protein 30 H Urine Blood SMALL H Urine Urobilinogen 4.0 H 03/21/20 19:40 RBC Hgb Hct RDW Sodium Est GFR ( Amer) Est GFR (MDRD) Non-Af Glucose Total Bilirubin Direct Bilirubin NT-Pro-B Natriuret Pep 1480 H Albumin Urine Protein Urine Blood Urine Urobilinogen - EKG Interpretation by Me Additional EKG results interpreted by me: 03/22/20 02:05 EKG obtained on 03/21/2020 at 2007 hrs. was interpreted by this MD. Findings: Ventricular paced rhythm, rate 61, intraventricular conduction delay is present, there are no obvious patterns of ST segment elevation or depression present to suggest acute myocardial ischemia or infarction. Impression: Ventricular paced rhythm with nonspecific ST segments. Discharge - Discharge Clinical Impression: Pedal edema UTI (urinary tract infection) Qualifiers: Hematuria presence: with hematuria Condition: Stable Disposition: HOME, SELF-CARE Instructions: Nitrofurantoin ([facility]) Additional Instructions: Return to the Emergency Department without delay if any worse. Be certain to follow-up with your regular doctor on 03/24/2022 have your Gomez catheter removed. HOME CARE INSTRUCTIONS & INFORMATION: Thank you for choosing us for your medical needs. We hope you're satisfied with the care you received. After you leave, you must properly care for your problem and, at the same time, observe its progress. Any condition can change. Some illnesses can change rapidly over hours or days. If your condition worsens, return to the Emergency Department or see your physician promptly. ABOUT YOUR X-RAYS AND EKG'S: If you had an EKG or X-rays taken, they have been read by the Emergency Physician. The X-rays and EKG's will also be read by a Radiologist or Senior Games Technician within 24 hours. If discrepancies are noted, you will be notified by telephone. Please be certain the ED has a correct telephone number & address where you can be reached. Also, realize that some fractures or abnormalities do not show up on initial X-rays. If your symptoms continue, see your physician. ABOUT YOUR LABORATORY TEST: If you had laboratory tests, the results have been reviewed by the Emergency Physician. Some test results (for example cultures) may not be available for several days. You will be contacted if any test result shows you need additional treatment. Please be certain the ED has a correct telephone number and address where you can be reached. ABOUT YOUR MEDICATIONS: You will receive instructions on how to take your medicine on the prescription label you receive. Additional information may be provided by the Pharmacy. If you have questions afterwards, call the ED for clarification or further instructions. Some prescribed medications may cause drowsiness. Do not perform tasks such as driving a car or operating machinery without consulting your Pharmacist. If you feel you need a refill of pain medication, your condition will need re-evaluation. Please do not call for a refill of any medication. ABOUT YOUR SIGNATURE: Signature of this document acknowledges to followin. Understanding that you received emergency treatment and that you may be released before al medical problems are known or treated. Please be certain the ED has a correct phone number & address where you can be reached. 2. Acknowledgement that you will arrange for follow-up care as recommended. 3. Authorization for the Emergency Physician to provide information to your follow-up Physician in order to maximize your care. AT ANY TIME, IF YOUR SYMPTOMS CHANGE SIGNIFICANTLY OR WORSEN OR YOU DEVELOP NEW SYMPTOMS, RETURN TO THE EMERGENCY DEPARTMENT IMMEDIATELY FOR RE-EVALUATION. OUR GOAL IS TO PROVIDE EXCELLENT MEDICAL CARE! WE HOPE THAT WE HAVE MET YOUR EXPECTATIONS DURING YOUR EMERGENCY DEPARTMENT VISIT AND THAT YOU FEEL YOU HAVE RECEIVED EXCELLENT CARE! Edema, Peripheral You have swelling in your legs. This is called peripheral edema. It can be caused by "leaky capillaries," inflammation, disease of the leg veins, or excess salt and water in your body. Edema may be a sign of heart, kidney, or liver disease. A medical evaluation can determine if there is a serious underlying cause for your edema. Avoid prolonged standing. If you must sit for a long time, occasionally get up and walk around or elevate your legs. Support stockings can be helpful in limiting swelling. Often diuretic or water pills are used to remove excess salt and water from your body. Call the doctor or return if you develop increased swelling, pain, or redness, shortness of breath, chest pain, or any other significant change. Urinary Tract Infection Your evaluation indicates that you have a urinary tract infection. This is due to germs growing in the bladder. This is a common problem. This infection usually responds quickly to antibiotics. Your antibiotic should be taken exactly as prescribed. Drink plenty of fluids -- three to four quarts a day. Occasionally, a bladder anesthetic will be prescribed to help stop the feeling of urgency until the antibiotic has a chance to clear the infection. This may cause your urine to be dark orange. Certain urine infections require a culture. If the doctor obtained a culture, the results will be back in two days. You should call to see if a change in treatment is needed. A repeat urinalysis after you finish treatment is often recommended. The physician will let you know if further testing is required. Call the doctor if you develop fever, chills, flank pain, inability to urinate, or blood in the urine. Prescriptions: Nitrofurantoin Monohyd/M-Cryst [Macrobid 100 mg Capsule] 100 mg PO BID 7 Days #14 cap I personally performed the services described in the documentation, reviewed and edited the documentation which was dictated to the scribe in my presence, and it accurately records my words and actions.
[2020-03-22 07:05] VITALS: BP 128/63
== END 2020-03-22 08:34 | disposition home or self-care (01) ==
LOC: ER 19:12
DX: R60.0 Localized edema (principal); N39.0 Urinary tract infection, site not specified; R31.9 Hematuria, unspecified; R06.02 Shortness of breath; R51 Headache; R05 Cough; R33.9 Retention of urine, unspecified; I10 Essential (primary) hypertension; I48.0 Paroxysmal atrial fibrillation; Z79.01 Long term (current) use of anticoagulants; Z79.899 Other long term (current) drug therapy
CPT/HCPCS: 93005; 99285; 51702; 96374; 36415; 85025; 80053; 81001; 83880; 71045; 93010; A9270 ×2; J1940; J8499

== ENCOUNTER 2020-04-02 20:28 | Inpatient (IN) | payer MEDICARE ==
[2020-04-02 21:59] LABS: ALKALINE PHOSPHATASE 108 U/L (38-126); ASPARTATE AMINO TRANSFERASE 28 U/L (14-36); BILIRUBIN,DIRECT 0.4 mg/dL (0.0-0.4); BILIRUBIN,TOTAL 1.9 mg/dL (0.2-1.3); BLOOD UREA NITROGEN 20 mg/dL (7-20); CALCIUM 8.5 mg/dL (8.4-10.2); CHLORIDE 82 mmol/L (98-107); GLUCOSE 122 mg/dL (75-110); TOTAL PROTEIN 6.2 g/dL (6.3-8.2)
--- NOTE | 2020-04-02 22:04 | ER Document Report ---
ED General - General Chief Complaint: Diarrhea Stated Complaint: URINARY PROBLEMS Time Seen by Provider: 04/02/20 21:17 Primary Care Provider: JOEL BARRAGAN MD [Primary Care Provider] - Follow up as needed Notes: 89-year-old female brought in by EMS stating I want my urinary catheter removed. On further questioning patient states that she has had a Gomez catheter in place to help her deal with increased urine output since being started on 80 to 160 mg of Lasix a day over the past 2 weeks to help with her peripheral edema that is complicating her treatment of right leg cellulitis. Patient states that she is concerned that she may have a urinary tract infection because she has been having dark cloudy urine. Patient denies any fevers, denies any abdominal pain, denies sweats or chills, denies nausea or vomiting. Does admit diarrhea starting this morning that she states is frequent and copious, has had several accidents where she cannot get it to the bathroom in time. She also states that she has been having progressively worsening leg weakness for the past 2 weeks which is why she had a Gomez catheter placed in the first place. Patient was afraid she would not be able to make it to the bedside commode. States that the weakness in her legs is nonfocal, states it is simply that when she goes to stand up and walk she feels like she runs out of energy as she struggles to walk. TRAVEL OUTSIDE OF THE [place] IN LAST 30 DAYS: No - Related Data Allergies/Adverse Reactions: Seasonal Allergies Allergy (Uncoded 03/02/20 12:14) Past Medical History - General Information source: Patient - Social History Smoking Status: Never Smoker Frequency of alcohol use: None Drug Abuse: None Family History: Reviewed & Not Pertinent - Past Medical History Cardiac Medical History: Reports: Hx Atrial Fibrillation - Paroxysmal on chronic Eliquis, Hx Hypercholesterolemia, Hx Hypertension - CONTROLLED WITH MEDS Denies: Hx Congestive Heart Failure, Hx Coronary Artery Disease, Hx DVT, Hx Heart Attack, Hx Peripheral Vascular Disease, Hx Pulmonary Embolism Pulmonary Medical History: Denies: Hx Asthma, Hx Bronchitis, Hx COPD, Hx Pneumonia Neurological Medical History: Denies: Hx Cerebrovascular Accident, Hx Seizures Endocrine Medical History: Denies: Hx Diabetes Mellitus Type 1, Hx Diabetes Mellitus Type 2, Hx Hyperthyroidism, Hx Hypothyroidism GI Medical History: Reports: Hx Gastroesophageal Reflux Disease. Denies: Hx Cirrhosis, Hx Crohn's Disease, Hx Hepatitis, Hx Hiatal Hernia, Hx Ulcer, Hx Ulcerative Colitis Musculoskeletal Medical History: Reports Hx Arthritis, Denies Hx Gout Skin Medical History: Denies Hx Eczema, Denies Hx Psoriasis Psychiatric Medical History: Denies: Hx Depression Infectious Medical History: Denies: Hx Hepatitis Past Surgical History: Reports: Hx Cardiac Surgery - pace maker, Hx Orthopedic Surgery - knee replacement, Hx Pacemaker - SEE CHECKLIST, Other - Cataract surgery. Denies: Hx Mastectomy, Hx Open Heart Surgery - Immunizations Hx Diphtheria, Pertussis, Tetanus Vaccination: No - Unsure Review of Systems - Review of Systems Constitutional: See HPI, Weakness. denies: Chills, Diaphoresis, Fever, Malaise EENT: No symptoms reported Cardiovascular: No symptoms reported Respiratory: No symptoms reported Gastrointestinal: See HPI, Diarrhea. denies: Nausea, Vomiting Genitourinary: See HPI Female Genitourinary: No symptoms reported Neurological/Psychological: See HPI, Weakness, Gait changes -: Yes All other systems reviewed and negative Physical Exam - Vital signs Vitals: Resp 23 H 04/02/20 20:37 Interpretation: Hypotensive - Notes Notes: GENERAL: Alert, interacts well. No acute distress. Morbidly obese. HEAD: Normocephalic, atraumatic EYES: Pupils equal, round and reactive to light, extraocular movements intact. ENT: Oral mucosa moist, tongue midline. NECK: Full range of motion, supple, trachea midline. LUNGS: Clear to auscultation bilaterally, no wheezes, rales or rhonchi, no re spiratory distress. HEART: Regular rate and rhythm, 3 out of 6 systolic ejection murmur, no gallops or rubs. ABDOMEN: Soft, nontender, nondistended, bowel sounds present in all 4 quadrants. Cloudy urine in the catheter. EXTREMITIES: Moves all 4 extremities spontaneously, no edema, radial and dorsal is pedis pulses 2/4 bilaterally. No cyanosis. NEUROLOGICAL: Alert and oriented x3, normal speech. PSYCH: Normal mood, normal affect. SKIN: Warm, Dry, 1+ pitting edema bilateral lower extremities, mild erythema to the ankle of the right leg. Course - Re-evaluation Re-evalutation: 04/03/20 00:54 CBC shows marked leukocytosis of 29.2, mild anemia at 10.3 hemoglobin, platelets are normal, INR prolonged but this is expected on Eliquis, venous blood gas is not acidotic, chemistry showed low sodium at 130.4, potassium is low at 2.7, this is repleted both IV and orally, magnesium level is pending, lactic acid elevated at 2.3, repeat is pending, troponin indeterminate 0.074, small blood and large leukocyte esterase with 3+ bacteria and 11 WBCs indicate likely catheter associated UTI. Chest x-ray unremarkable. I suspect that the patient has had a recurrence of the C. difficile that she had several months ago in addition to her catheter associated UTI. Catheter will be removed, discussed case with Dr. Jennings who agrees to admit the patient to the telemetry care unit. - Vital Signs Vital signs: Temp Pulse Resp BP Pulse Ox 18 134/62 H 98 04/03/20 00:01 04/03/20 00:01 04/03/20 00:01 - Laboratory Result Diagrams: 04/02/20 22:50 04/02/20 21:15 Laboratory results interpreted by me: 04/02/20 04/02/20 04/02/20 21:15 21:15 21:15 WBC RBC Hgb Hct RDW Seg Neuts % (Manual) Lymphocytes % (Manual) Abs Neuts (Manual) Abs Monocytes (Manual) PT 25.9 H VBG pH VBG HCO3 Sodium 130.4 L Potassium 2.7 L* Chloride 82 L Carbon Dioxide 41 H* Est GFR ( Amer) 50 L Est GFR (MDRD) Non-Af 41 L Glucose 122 H POC Glucose Lactic Acid Total Bilirubin 1.9 H Total Protein 6.2 L Albumin 3.0 L Urine Protein 100 H Urine Blood SMALL H Leukocyte Esterase Rfl LARGE H 04/02/20 04/02/20 04/02/20 21:40 21:40 22:50 WBC 29.2 H RBC 3.43 L Hgb 10.3 L Hct 31.1 L RDW 16.3 H Seg Neuts % (Manual) 85 H Lymphocytes % (Manual) 8 L Abs Neuts (Manual) 24.8 H Abs Monocytes (Manual) 2.0 H PT VBG pH 7.49 H VBG HCO3 40.7 H Sodium Potassium Chloride Carbon Dioxide Est GFR ( Amer) Est GFR (MDRD) Non-Af Glucose POC Glucose Lactic Acid 2.3 H Total Bilirubin Total Protein Albumin Urine Protein Urine Blood Leukocyte Esterase Rfl 04/02/20 22:50 WBC RBC Hgb Hct RDW Seg Neuts % (Manual) Lymphocytes % (Manual) Abs Neuts (Manual) Abs Monocytes (Manual) PT VBG pH VBG HCO3 Sodium Potassium Chloride Carbon Dioxide Est GFR ( Amer) Est GFR (MDRD) Non-Af Glucose POC Glucose 134 H Lactic Acid Total Bilirubin Total Protein Albumin Urine Protein Urine Blood Leukocyte Esterase Rfl - EKG Interpretation by Me Additional EKG results interpreted by me: 04/03/20 00:36 EKG shows a ventricularly paced rhythm with some A. fib/flutter, rate of 63, left axis deviation, interventricular conduction delays when non-paced complexes are present, per my interpretation. Discharge - Discharge Clinical Impression: Clostridium difficile colitis Catheter-associated urinary tract infection Qualifiers: Indwelling urinary catheter type: indwelling urethral catheter Encounter type: initial encounter Qualified Code(s): T83.511A - Infection and inflammatory reaction due to indwelling urethral catheter, initial encounter; N39.0 - Urinary tract infection, site not specified Condition: Fair Disposition: ADMITTED INPATIENT Admitting Provider: Dick (Hospitalist) Unit Admitted: Telemetry Referrals: JOEL BARRAGAN MD [Primary Care Provider] - Follow up as needed
[2020-04-02 22:07] LABS: VENOUS BLOOD BASE EXCESS 14.7 mmol/L; VENOUS BLOOD HCO3 40.7 mmol/L (20-32); VENOUS BLOOD PCO2 55.2 mmHg (35-63); VENOUS BLOOD PH 7.49 (7.30-7.42)
[2020-04-02 22:08] LABS: APPEARANCE,URINE CLOUDY; BILIRUBIN,URINE NEGATIVE (NEGATIVE); COLOR,URINE AMBER; GLUCOSE, URINE NEGATIVE (NEGATIVE); KETONES,URINE NEGATIVE (NEGATIVE); PROTEIN,URINE 100 mg/dL (NEGATIVE); TRIPLE PHOSPHATE CRYSTAL,URINE FEW /HPF; URINE SPECIFIC GRAVITY 1.012; UROBILINOGEN,URINE NEGATIVE mg/dL (<2.0)
[2020-04-02 22:21] LABS: INTERNATIONAL RATION (INR) 2.32; PROTHROMBIN TIME 25.9 SEC (11.4-15.4)
[2020-04-02 22:23] LABS: ANION GAP 7 (5-19)
[2020-04-02 22:24] LABS: POTASSIUM 2.7 mmol/L (3.6-5.0)
[2020-04-02 22:25] LABS: CARBON DIOXIDE 41 mmol/L (22-30)
--- NOTE | 2020-04-02 22:57 | RADIOLOGY REPORT (SQ) ---
CLINICAL INDICATION: hypotension, ?sepsis. TECHNIQUE: A single portable AP view was obtained of the chest at 2225 hours. COMPARISON: March 21, 2020. FINDINGS: The cardiomediastinal silhouette is prominent but stable with postsurgical change. The lungs are grossly clear. No evidence of effusion or pneumothorax. Chronic parenchymal lung change.. IMPRESSION: No evidence of active intrathoracic disease. Chronic change, no adverse change
[2020-04-02 23:04] LABS: HEMATOCRIT 31.1 % (36.0-47.0); HEMOGLOBIN 10.3 g/dL (12.0-15.5); MEAN CORPUSCULAR VOLUME 91 fl (80-97); PLATELET COUNT 265 10^3/uL (150-450); RED BLOOD COUNT 3.43 10^6/uL (3.72-5.28); RED CELL DISTRIBUTION WIDTH 16.3 % (11.5-14.0); WHITE BLOOD COUNT 29.2 10^3/uL (4.0-10.5)
[2020-04-02] MEDS: POTASSI CL 20 MEQ/50 ML RIDER 20 MEQ/50 ML RTUPB IV SCH (23:12)
[2020-04-02 23:32] LABS: ABSOLUTE LYMPHOCYTES# (MANUAL) 2.3 10^3/uL (0.5-4.7); BASOPHILS % (MANUAL) 0 % (0-2); EOSINOPHILS % (MANUAL) 0 % (0-6); LYMPHOCYTES % (MANUAL) 8 % (13-45); MONOCYTES % (MANUAL) 7 % (3-13); SEGMENTED NEUTROPHILS % (MAN) 85 % (42-78); TOTAL CELLS COUNTED 100
[2020-04-02 23:33] LABS: ANISOCYTOSIS 1+; OVALOCYTES SLIGHT; PLATELET COMMENT ADEQUATE
[2020-04-03] MEDS ORDERED: POTASSIUM CHLORIDE 10 MEQ TABLET.ER PO ONE (00:36)
[2020-04-03] MEDS ORDERED: LEVOFLOXACIN 750 MG/D5W RTU 750 MG/150 ML RTUPB IV ONE ×2 (00:38→04:00)
[2020-04-03] MEDS: POTASSI CL 20 MEQ/50 ML RIDER 20 MEQ/50 ML RTUPB IV SCH (01:33)
[2020-04-03] MEDS ORDERED: ACETAMINOPHEN 325 MG TABLET PO PRN (01:36)
--- NOTE | 2020-04-03 02:04 | PDOC H&P ---
History of Present Illness Admission Date/PCP: 04/03/20 01:02 JOEL BARRAGAN MD History of Present Illness: ROLDAN SCHAEFER is a 89 year old female who comes in to the ER with a chief complaint of weakness. Apparently several weeks ago she got a cellulitis and was put on antibiotics by her primary care provider, and subsequently got C. difficile colitis. She underwent treatment for the colitis and completed it. And the cellulitis came back and she was put back on antibiotics, and also because of the chronic swelling in her lower extremities she was subjected to an increased dose of Lasix. She says she was used to taking 40 mg of Lasix once a day, and her Lasix was increased to 80 mg twice a day by her primary care provider. She was urinating so much that she wound up in the ER where a Gomze catheter was placed. It was not intended to be left in long-term, but she is kept it in now for about a month. Her urinalysis in the ER had 3+ bacteria but there was only about 11 white blood cells in the urine. Her potassium was low at 2.7. She did have an impressive leukocytosis at 29,000. She reports having several bouts of diarrhea for the last couple of days. She is not had a fever. No chest pain or shortness of breath. No nausea, vomiting, or abdominal pain. Past Medical History Cardiac Medical History: Reports: Atrial Fibrillation - Paroxysmal on chronic Eliquis, Hyperlipidema, Hypertension - CONTROLLED WITH MEDS Denies: Congestive Heart Failure, Coronary Artery Disease, DVT, Myocardial Infarction, Peripheral Vascular Disease, Pulmonary Embolism Pulmonary Medical History: Denies: Asthma, Bronchitis, Chronic Obstructive Pulmonary Disease (COPD), Pneumonia Neurological Medical History: Denies: Seizures Endocrine Medical History: Denies: Diabetes Mellitus Type 1, Diabetes Mellitus Type 2, Hyperthyroidism, Hypothyroidism GI Medical History: Reports: Gastroesophageal Reflux Disease Denies: Cirrhosis, Crohn's Disease, Hepatitis, Hiatal Hernia, Ulcerative Colitis Musculoskeltal Medical History: Reports: Arthritis Denies: Gout Skin Medical History: Denies: Eczema, Psoriasis Psychiatric Medical History: Denies: Depression Hematology: Denies: Anemia, Sickle Cell Disease, Bleeding Tendencies Past Surgical History Past Surgical History: Reports: Orthopedic Surgery - knee replacement, Pacemaker - SEE CHECKLIST, Other - Cataract surgery Denies: Amputation, Mastectomy Social History Smoking Status: Never Smoker Frequency of Alcohol Use: None Hx Recreational Drug Use: No Drugs: None Hx Prescription Drug Abuse: No Family History Family History: Reviewed & Not Pertinent Parental Family History Reviewed: Yes Children Family History Reviewed: Yes Sibling(s) Family History Reviewed.: Yes Medication/Allergy Home Medications: Apixaban [Eliquis 5 mg Tablet] 5 mg PO BID 02/16/20 Gabapentin [Neurontin 100 mg Capsule] 100 mg PO Q8 02/16/20 Metoprolol Succinate [Toprol Xl 50 mg Tab.sr] 50 mg PO DAILY 02/16/20 Furosemide [Lasix 40 mg Tablet] 80 mg PO BID #120 tablet 02/18/20 Potassium Chloride 20 meq PO BID #60 tablet.er 02/18/20 Famotidine [Pepcid 20 mg Tablet] 20 mg PO Q12 #60 tablet 03/07/20 Lactobacillus Acidophilus [Bacid 250 mg Tablet] 500 mg PO BID #60 tab 03/07/20 Vancomycin HCl [Vancocin Inj 500 mg Vial] 250 mg PO Q6A 5 Days #20 vial 03/07/20 Nitrofurantoin Monohyd/M-Cryst [Macrobid 100 mg Capsule] 100 mg PO BID 7 Days #14 cap 03/22/20 Allergies/Adverse Reactions: Seasonal Allergies Allergy (Uncoded 03/02/20 12:14) Review of Systems All systems: reviewed and no additional remarkable complaints except as stated - All systems were reviewed and were negative except as noted in the HPI Physical Exam Vital Signs: Temp Pulse Resp BP Pulse Ox 18 134/62 H 98 04/03/20 00:01 04/03/20 00:01 04/03/20 00:01 Intake & Output 04/01/20 04/02/20 04/03/20 06:59 06:59 06:59 Intake Total 50 Balance 50 Weight 134.1 kg General appearance: PRESENT: no acute distress, cooperative, disheveled, morbidly obese Head exam: PRESENT: atraumatic, normocephalic Eye exam: PRESENT: EOMI, PERRLA. ABSENT: conjunctival injection, nystagmus, scleral icterus Ear exam: PRESENT: normal external ear exam Mouth exam: PRESENT: dry mucosa, neck supple Teeth exam: PRESENT: poor dentation Throat exam: ABSENT: post pharyngeal erythema Neck exam: PRESENT: full ROM. ABSENT: carotid bruit, JVD, lymphadenopathy, meningismus, tenderness, thyromegaly Respiratory exam: PRESENT: clear to auscultation umesh, symmetrical, unlabored. ABSENT: accessory muscle use, chest wall tenderness, crackles, prolonged expiratory phas, rhonchi, tachypnea, wheezes Cardiovascular exam: PRESENT: RRR, +S1, +S2 Pulses: PRESENT: normal carotid pulses Vascular exam: PRESENT: normal capillary refill GI/Abdominal exam: PRESENT: normal bowel sounds, soft. ABSENT: distended, guarding, rebound, tenderness Extremities exam: PRESENT: pedal edema, +1 edema. ABSENT: clubbing Musculoskeletal exam: PRESENT: normal inspection. ABSENT: deformity Neurological exam: PRESENT: alert, awake, oriented to person, oriented to place, oriented to situation, CN II-XII grossly intact. ABSENT: motor sensory deficit Psychiatric exam: PRESENT: appropriate affect, normal mood Skin exam: PRESENT: dry, warm Results Laboratory Results: 04/02/20 22:50 04/02/20 21:15 04/02/20 04/02/20 04/02/20 21:15 21:15 21:15 WBC Cancelled RBC Cancelled Hgb Cancelled Hct Cancelled MCV Cancelled MCH Cancelled MCHC Cancelled RDW Cancelled Plt Count Cancelled Seg Neutrophils % Cancelled VBG pH VBG pCO2 VBG HCO3 VBG Base Excess Sodium 130.4 L Potassium 2.7 L* Chloride 82 L Carbon Dioxide 41 H* Anion Gap 7 BUN 20 Creatinine 1.23 Est GFR ( Amer) 50 L Glucose 122 H Lactic Acid Calcium 8.5 Magnesium Total Bilirubin 1.9 H AST 28 Alkaline Phosphatase 108 Total Protein 6.2 L Albumin 3.0 L Urine Color JOSE Urine Appearance CLOUDY Urine pH 8.0 Ur Specific Hooper 1.012 Urine Protein 100 H Urine Glucose (UA) NEGATIVE Urine Ketones NEGATIVE Urine Blood SMALL H Urine RBC (Auto) 8 04/02/20 04/02/20 04/02/20 21:15 21:40 21:40 WBC RBC Hgb Hct MCV MCH MCHC RDW Plt Count Seg Neutrophils % VBG pH 7.49 H VBG pCO2 55.2 VBG HCO3 40.7 H VBG Base Excess 14.7 Sodium Potassium Chloride Carbon Dioxide Anion Gap BUN Creatinine Est GFR ( Amer) Glucose Lactic Acid 2.3 H Calcium Magnesium 1.5 L Total Bilirubin AST Alkaline Phosphatase Total Protein Albumin Urine Color Urine Appearance Urine pH Ur Specific Hooper Urine Protein Urine Glucose (UA) Urine Ketones Urine Blood Urine RBC (Auto) 04/02/20 04/03/20 22:50 00:40 WBC 29.2 H RBC 3.43 L Hgb 10.3 L Hct 31.1 L MCV 91 MCH 30.0 MCHC 33.0 RDW 16.3 H Plt Count 265 Seg Neutrophils % Not Reportable VBG pH VBG pCO2 VBG HCO3 VBG Base Excess Sodium Potassium Chloride Carbon Dioxide Anion Gap BUN Creatinine Est GFR ( Amer) Glucose Lactic Acid 1.6 Calcium Magnesium Total Bilirubin AST Alkaline Phosphatase Total Protein Albumin Urine Color Urine Appearance Urine pH Ur Specific Hooper Urine Protein Urine Glucose (UA) Urine Ketones Urine Blood Urine RBC (Auto) 04/02/20 21:15 Troponin I 0.074 Impressions: Chest X-Ray 04/02/20 21:21 IMPRESSION: No evidence of active intrathoracic disease. Chronic change, no adverse change Assessment and Plan - Diagnosis (1) Clostridium difficile colitis Is this a current diagnosis for this admission?: Yes Plan: P.o. vancomycin 4 times a day. Probiotics twice a day. Stool output and hydration status with electrolytes. We will follow-up C. difficile assay. (2) Catheter-associated urinary tract infection Qualifiers: Indwelling urinary catheter type: indwelling urethral catheter Encounter type: initial encounter Qualified Code(s): T83.511A - Infection and inflammatory reaction due to indwelling urethral catheter, initial encounter; N39.0 - Urinary tract infection, site not specified Is this a current diagnosis for this admission?: Yes Plan: Less suspicious of this, but have continued Rocephin, urine cultures pending. Catheter should be changed. Actually, catheter should be discontinued if possible. (3) Dehydration Is this a current diagnosis for this admission?: Yes Plan: IV fluids, oral intake as tolerated (4) Edema of both lower legs Is this a current diagnosis for this admission?: Yes Plan: Assessment chronic venous stasis. Lasix is on hold for now. (5) Hypokalemia Is this a current diagnosis for this admission?: Yes Plan: Due to increased dose of Lasix. Possibly also some GI losses from diarrhea. Lasix on hold. Replacing with an oral supplement. Magnesium was a bit low and so that was replaced as well. (6) Longstanding persistent atrial fibrillation Is this a current diagnosis for this admission?: Yes Plan: She was in sinus rhythm for me. We will continue anticoagulation. We will continue Toprol-XL. (7) Morbid obesity Is this a current diagnosis for this admission?: Yes Plan: Strongly encourage dietary modification. Once she has improved, she should be assessed by physical therapy. - Time Time Spent with patient: 35 or more minutes - Inpatient Certification Based on my medical assessment, after consideration of the patient's comorbidities, presenting symptoms, or acuity I expect that the services needed warrant INPATIENT care.: Yes I certify that my determination is in accordance with my understanding of Medicare's requirements for reasonable and necessary INPATIENT services [42 CFR 412.3e].: Yes Medical Necessity: Significant Comorbidiites Make Outpatient Treatment Too Risky, Need Close Monitoring Due to Risk of Patient Decompensation, Need For IV Fluids, Need For Continuous Telemetry Monitoring, Risk of Complication if Not Cared For in Hospital
[2020-04-03] MEDS ORDERED: MAGNESIUM SULFATE/D5W 1 GM/100 ML RTUPB IV SCH (03:00)
[2020-04-03] MEDS: CEFTRIAXONE 1 GM/D5W RTU 1 GM/50 ML RTUPB IV SCH ×2 (03:40→21:47)
[2020-04-03] MEDS: POTASSIUM CHLORIDE 10 MEQ TABLET.ER PO SCH ×3 (03:51→21:47)
[2020-04-03] MEDS: VANCOMYCIN HCL INJ 500 MG VIAL PO SCH ×3 (05:23→17:35)
[2020-04-03] MEDS: MAGNESIUM SULFATE/D5W 1 GM/100 ML RTUPB IV SCH ×2 (05:24→07:37)
[2020-04-03] MEDS: LACTOBACILLUS ACIDOPHILUS 250 MG TAB PO SCH ×2 (09:23→17:35)
--- NOTE | 2020-04-03 13:19 | EKG REPORT ---
SEVERITY:- ABNORMAL ECG - ATRIAL FIBRILLATION V PACED BORDERLINE ST DEPRESSION, LATERAL LEADS : Confirmed by: Perfecto Lemos MD 03-Apr-2020 13:19:02
[2020-04-03 14:04] LABS: ANION GAP 7 (5-19); BLOOD UREA NITROGEN 22 mg/dL (7-20); CALCIUM 8.4 mg/dL (8.4-10.2); CARBON DIOXIDE 39 mmol/L (22-30); CHLORIDE 83 mmol/L (98-107); GLUCOSE 112 mg/dL (75-110); POTASSIUM 3.2 mmol/L (3.6-5.0)
[2020-04-03 15:07] LABS: C DIFFICILE GDH POSITIVE (NEGATIVE)
[2020-04-03] MEDS: APIXABAN 5 MG TABLET PO SCH (17:35)
[2020-04-03] MEDS: NORMAL SALINE 1000 ML 1,000 ML IV PRN (21:49)
[2020-04-03] MEDS: GABAPENTIN 100 MG CAPSULE PO SCH (21:50)
[2020-04-04] MEDS: VANCOMYCIN HCL INJ 500 MG VIAL PO SCH ×4 (00:30→17:30)
[2020-04-04] MEDS: POTASSIUM CHLORIDE 10 MEQ TABLET.ER PO SCH ×2 (05:42→13:14)
[2020-04-04] MEDS: GABAPENTIN 100 MG CAPSULE PO SCH ×2 (05:43→13:14)
[2020-04-04 06:08] LABS: HEMATOCRIT 26.2 % (36.0-47.0); MEAN CORPUSCULAR HEMOGLOBIN 30.8 pg (27.0-33.4); MEAN CORPUSCULAR HGB CONC 34.4 g/dL (32.0-36.0); MEAN CORPUSCULAR VOLUME 90 fl (80-97); PLATELET COUNT 223 10^3/uL (150-450); RED BLOOD COUNT 2.93 10^6/uL (3.72-5.28); RED CELL DISTRIBUTION WIDTH 16.6 % (11.5-14.0); WHITE BLOOD COUNT 18.4 10^3/uL (4.0-10.5)
[2020-04-04 06:27] LABS: ANION GAP 6 (5-19); BLOOD UREA NITROGEN 20 mg/dL (7-20); CALCIUM 8.1 mg/dL (8.4-10.2); CARBON DIOXIDE 37 mmol/L (22-30); CHLORIDE 88 mmol/L (98-107); GLUCOSE 88 mg/dL (75-110); POTASSIUM 3.6 mmol/L (3.6-5.0)
[2020-04-04] MEDS: NORMAL SALINE 1000 ML 1,000 ML IV PRN ×2 (06:39→17:33)
[2020-04-04] MEDS: METOPROLOL SUCCINATE 50 MG TAB.SR.24H PO SCH (09:32)
[2020-04-04] MEDS: DULOXETINE HCL 20 MG CAPSULE.DR PO SCH (09:32)
[2020-04-04] MEDS: APIXABAN 5 MG TABLET PO SCH ×2 (09:32→17:30)
[2020-04-04] MEDS: LACTOBACILLUS ACIDOPHILUS 250 MG TAB PO SCH ×2 (09:32→17:30)
--- NOTE | 2020-04-04 15:05 | PDOC PROGRESS REPORT ---
Subjective Progress Note for:: 04/04/20 Subjective:: Patient states she has had about 3-4 bowel movements in the past 24 hours. Seems to be doing better. Stool is still very loose. Reason For Visit: C. DIFFICILE COLITIS,HYPOKALEMIA, CAUTI Physical Exam Vital Signs: Temp Pulse Resp BP Pulse Ox 97.7 F 67 18 130/60 H 97 04/04/20 11:35 04/04/20 14:00 04/04/20 11:35 04/04/20 11:35 04/04/20 11:35 Intake & Output 04/03/20 04/04/20 04/05/20 06:59 06:59 06:59 Intake Total 1120 1253 595 Output Total 1200 Balance -80 1253 595 Weight 135.2 kg 135.2 kg General appearance: PRESENT: no acute distress, cooperative Respiratory exam: PRESENT: symmetrical, unlabored. ABSENT: accessory muscle use, retraction, tachypnea Neurological exam: PRESENT: alert, awake, oriented to person, oriented to place Results Laboratory Results: 04/04/20 05:33 04/04/20 05:33 04/04/20 04/04/20 05:33 05:33 WBC 18.4 H RBC 2.93 L Hgb 9.0 L Hct 26.2 L MCV 90 MCH 30.8 MCHC 34.4 RDW 16.6 H Plt Count 223 Sodium 130.8 L Potassium 3.6 Chloride 88 L Carbon Dioxide 37 H Anion Gap 6 BUN 20 Creatinine 1.03 Est GFR ( Amer) > 60 Glucose 88 Calcium 8.1 L Magnesium 1.9 04/02/20 21:40 Blood Blood Culture (PCR) - Final Staphylococcus Species 04/02/20 21:15 Troponin I 0.074 Impressions: Chest X-Ray 04/02/20 21:21 IMPRESSION: No evidence of active intrathoracic disease. Chronic change, no adverse change Assessment and Plan - Diagnosis (1) Clostridium difficile colitis Is this a current diagnosis for this admission?: Yes Plan: Her frequency of diarrhea seems to be improving. Her C. difficile test came back positive. Continue p.o. vancomycin and probiotics. Continue IV fluids. (2) Catheter-associated urinary tract infection Qualifiers: Indwelling urinary catheter type: indwelling urethral catheter Encounter type: initial encounter Qualified Code(s): T83.511A - Infection and inflamma tory reaction due to indwelling urethral catheter, initial encounter; N39.0 - Urinary tract infection, site not specified Is this a current diagnosis for this admission?: Yes Plan: Gomez catheter was removed yesterday. Post void residuals have been adequate. Urine culture is growing Morganella and another gram-negative miguel. Awaiting full identification. Continue ceftriaxone in the meantime. (3) Dehydration Is this a current diagnosis for this admission?: Yes Plan: IV fluids, oral intake as tolerated (4) Edema of both lower legs Is this a current diagnosis for this admission?: Yes Plan: Assessment chronic venous stasis. Lasix is on hold for now. (5) Hypokalemia Is this a current diagnosis for this admission?: Yes Plan: Due to increased dose of Lasix and also some GI losses from diarrhea. Lasix on hold. Potassium level is normal today but only 3.6 despite receiving potassium chloride daily 8 hours 40 mg. We will continue p.o. potassium supplementation for now. Magnesium level is normal today as well. Continue to monitor BMP. (6) Longstanding persistent atrial fibrillation Is this a current diagnosis for this admission?: Yes Plan: We will continue anticoagulation. We will continue Toprol-XL. (7) Morbid obesity Is this a current diagnosis for this admission?: Yes Plan: Physical therapy evaluation - Time Time Spent with patient: Less than 15 minutes Anticipated discharge: Home Within: within 36 hours
[2020-04-05] MEDS: VANCOMYCIN HCL INJ 500 MG VIAL PO SCH ×5 (00:13→23:17)
[2020-04-05] MEDS: POTASSIUM CHLORIDE 10 MEQ TABLET.ER PO SCH ×3 (00:14→15:21)
[2020-04-05] MEDS: CEFTRIAXONE 1 GM/D5W RTU 1 GM/50 ML RTUPB IV SCH (00:14)
[2020-04-05] MEDS: GABAPENTIN 100 MG CAPSULE PO SCH ×4 (00:14→22:24)
[2020-04-05 05:53] LABS: HEMATOCRIT 26.9 % (36.0-47.0); HEMOGLOBIN 9.2 g/dL (12.0-15.5); MEAN CORPUSCULAR HEMOGLOBIN 30.8 pg (27.0-33.4); MEAN CORPUSCULAR HGB CONC 34.1 g/dL (32.0-36.0); MEAN CORPUSCULAR VOLUME 90 fl (80-97); PLATELET COUNT 235 10^3/uL (150-450); RED BLOOD COUNT 2.98 10^6/uL (3.72-5.28); RED CELL DISTRIBUTION WIDTH 16.8 % (11.5-14.0); WHITE BLOOD COUNT 14.2 10^3/uL (4.0-10.5)
[2020-04-05 06:23] LABS: ANION GAP 5 (5-19); BLOOD UREA NITROGEN 20 mg/dL (7-20); CALCIUM 8.3 mg/dL (8.4-10.2); CARBON DIOXIDE 34 mmol/L (22-30); CHLORIDE 91 mmol/L (98-107); GLUCOSE 95 mg/dL (75-110); POTASSIUM 4.5 mmol/L (3.6-5.0)
[2020-04-05] MEDS: NORMAL SALINE 1000 ML 1,000 ML IV PRN ×2 (07:00→12:07)
[2020-04-05] MEDS: LACTOBACILLUS ACIDOPHILUS 250 MG TAB PO SCH ×2 (11:14→19:00)
[2020-04-05] MEDS: APIXABAN 5 MG TABLET PO SCH ×2 (11:15→19:00)
[2020-04-05] MEDS: DULOXETINE HCL 20 MG CAPSULE.DR PO SCH (11:15)
[2020-04-05] MEDS: METOPROLOL SUCCINATE 50 MG TAB.SR.24H PO SCH (11:15)
--- NOTE | 2020-04-05 16:20 | PDOC PROGRESS REPORT ---
Subjective Progress Note for:: 04/05/20 Subjective:: Patient's bowel movements is only about 3 over the past 24 hours. Working on SNF placement. Reason For Visit: C. DIFFICILE COLITIS,HYPOKALEMIA, CAUTI Physical Exam Vital Signs: Temp Pulse Resp BP Pulse Ox 97.3 F 85 17 121/56 L 94 04/05/20 11:20 04/05/20 14:00 04/05/20 11:20 04/05/20 11:20 04/05/20 11:20 Intake & Output 04/04/20 04/05/20 04/06/20 06:59 06:59 06:59 Intake Total 1253 3801 1333 Balance 1253 3801 1333 Weight 135.2 kg 135.2 kg General appearance: PRESENT: no acute distress, cooperative Neck exam: ABSENT: JVD Respiratory exam: PRESENT: clear to auscultation umesh, unlabored. ABSENT: tachypnea, wheezes Cardiovascular exam: PRESENT: RRR, +S1, +S2. ABSENT: tachycardia GI/Abdominal exam: PRESENT: soft. ABSENT: rebound, rigid, tenderness Neurological exam: PRESENT: alert, awake, oriented to person, oriented to place, oriented to time Results Laboratory Results: 04/05/20 05:32 04/05/20 05:32 04/05/20 04/05/20 05:32 05:32 WBC 14.2 H RBC 2.98 L Hgb 9.2 L Hct 26.9 L MCV 90 MCH 30.8 MCHC 34.1 RDW 16.8 H Plt Count 235 Sodium 129.9 L Potassium 4.5 Chloride 91 L Carbon Dioxide 34 H Anion Gap 5 BUN 20 Creatinine 1.02 Est GFR ( Amer) > 60 Glucose 95 Calcium 8.3 L 04/02/20 21:15 Gomez Catheter Urine Culture - Final Morganella Morganii Proteus Mirabilis 04/02/20 23:32 Stool - Stool - Final 04/02/20 21:15 Troponin I 0.074 Impressions: Chest X-Ray 04/02/20 21:21 IMPRESSION: No evidence of active intrathoracic disease. Chronic change, no adverse change Assessment and Plan - Diagnosis (1) Clostridium difficile colitis Is this a current diagnosis for this admission?: Yes Plan: Her frequency of diarrhea seems to be improving. Her C. difficile test came back positive. Continue p.o. vancomycin and probiotics. Discontinue IV fluids. Stable for discharge. Awaiting SNF placement. Seems patient should be able to go to [facility] by Tuesday. (2) Catheter-associated urinary tract infection Qualifiers: Indwelling urinary catheter type: indwelling urethral catheter Encounter type: initial encounter Qualified Code(s): T83.511A - Infection and inflammatory reaction due to indwelling urethral catheter, initial encounter; N39.0 - Urinary tract infection, site not specified Is this a current diagnosis for this admission?: Yes Plan: Gomez catheter was removed yesterday. Post void residuals have been adequate. Urine culture is growing Morganella resistant to ancef/ampicillin and Proteus. Continue ceftriaxone day 3. (3) Dehydration Is this a current diagnosis for this admission?: Yes Plan: Resolved (4) Edema of both lower legs Is this a current diagnosis for this admission?: Yes Plan: Assessment chronic venous stasis. Lasix is on hold for now. (5) Hypokalemia Is this a current diagnosis for this admission?: Yes Plan: Due to increased dose of Lasix and also some GI losses from diarrhea. Lasix on hold. Potassium level is a lot better today. I will decrease potassium chloride dosing to daily. Has already received 2 doses today. Check BMP in the morning. (6) Longstanding persistent atrial fibrillation Is this a current diagnosis for this admission?: Yes Plan: We will continue anticoagulation. We will continue Toprol-XL. (7) Morbid obesity Is this a current diagnosis for this admission?: Yes Plan: Physical therapy evaluation - Plan Summary Summary: ready for d/c pending snf. covid test initiated. - Time Time Spent with patient: Less than 15 minutes Anticipated discharge: SNF Within: within 48 hours
[2020-04-06] MEDS: CEFTRIAXONE 1 GM/D5W RTU 1 GM/50 ML RTUPB IV SCH ×2 (00:30→22:51)
[2020-04-06] MEDS: NORMAL SALINE 1000 ML 1,000 ML IV PRN (05:57)
[2020-04-06 06:55] LABS: HEMATOCRIT 26.7 % (36.0-47.0); MEAN CORPUSCULAR HEMOGLOBIN 30.2 pg (27.0-33.4); MEAN CORPUSCULAR HGB CONC 33.7 g/dL (32.0-36.0); MEAN CORPUSCULAR VOLUME 90 fl (80-97); PLATELET COUNT 238 10^3/uL (150-450); RED BLOOD COUNT 2.98 10^6/uL (3.72-5.28); RED CELL DISTRIBUTION WIDTH 16.5 % (11.5-14.0)
[2020-04-06 07:20] LABS: ANION GAP 6 (5-19); BLOOD UREA NITROGEN 18 mg/dL (7-20); CALCIUM 8.4 mg/dL (8.4-10.2); CARBON DIOXIDE 32 mmol/L (22-30); CHLORIDE 92 mmol/L (98-107); GLUCOSE 92 mg/dL (75-110); POTASSIUM 4.7 mmol/L (3.6-5.0)
[2020-04-06] MEDS: GABAPENTIN 100 MG CAPSULE PO SCH ×3 (07:58→22:52)
[2020-04-06] MEDS: VANCOMYCIN HCL INJ 500 MG VIAL PO SCH ×4 (07:58→23:00)
[2020-04-06] MEDS: DULOXETINE HCL 20 MG CAPSULE.DR PO SCH (09:57)
[2020-04-06] MEDS: LACTOBACILLUS ACIDOPHILUS 250 MG TAB PO SCH ×2 (09:57→17:42)
[2020-04-06] MEDS: METOPROLOL SUCCINATE 50 MG TAB.SR.24H PO SCH (09:57)
[2020-04-06] MEDS: POTASSIUM CHLORIDE 10 MEQ TABLET.ER PO SCH (09:57)
[2020-04-06] MEDS: APIXABAN 5 MG TABLET PO SCH ×2 (09:57→17:42)
--- NOTE | 2020-04-06 11:47 | PDOC PROGRESS REPORT ---
Subjective Progress Note for:: 04/06/20 Subjective:: Patient is requesting SCD pumps for her legs. She reports that she is still having the same number of bowel movements but the volume may be less. She still has a pronounced gastrocolic reflex where the food "goes right through me ". Reason For Visit: C. DIFFICILE COLITIS,HYPOKALEMIA, CAUTI Physical Exam Vital Signs: Temp Pulse Resp BP Pulse Ox 98.5 F 67 24 H 130/65 H 95 04/06/20 07:28 04/06/20 07:28 04/06/20 07:28 04/06/20 07:28 04/06/20 07:28 Intake & Output 04/05/20 04/06/20 04/07/20 06:59 06:59 06:59 Intake Total 3801 2623 476 Balance 3801 2623 476 Weight 135.2 kg 138.9 kg General appearance: PRESENT: no acute distress, cooperative, morbidly obese, well-developed Head exam: PRESENT: atraumatic, normocephalic Eye exam: PRESENT: conjunctiva pink, EOMI. ABSENT: scleral icterus Ear exam: PRESENT: normal external ear exam. ABSENT: bleeding, drainage Mouth exam: PRESENT: moist, tongue midline Respiratory exam: PRESENT: clear to auscultation umesh, symmetrical, unlabored. ABSENT: rales, rhonchi, tachypnea, wheezes Cardiovascular exam: PRESENT: RRR, +S1, +S2, systolic murmur GI/Abdominal exam: PRESENT: normal bowel sounds, soft, other - Pendulous abdomen. ABSENT: guarding, tenderness Rectal exam: PRESENT: deferred Gentrourinary exam: ABSENT: indwelling catheter Extremities exam: PRESENT: +2 edema Neurological exam: PRESENT: alert, awake, oriented to person, oriented to place, oriented to time, oriented to situation, CN II-XII grossly intact. ABSENT: altered Psychiatric exam: PRESENT: appropriate affect. ABSENT: agitated, anxious Focused psych exam: ABSENT: delusional, paranoid, restlessness Skin exam: PRESENT: dry, warm, other - Some cobblestoning on her legs with mild pigment deposition Results Laboratory Results: 04/06/20 06:38 04/06/20 06:38 04/06/20 04/06/20 06:38 06:38 WBC 15.0 H RBC 2.98 L Hgb 9.0 L Hct 26.7 L MCV 90 MCH 30.2 MCHC 33.7 RDW 16.5 H Plt Count 238 Sodium 129.9 L Potassium 4.7 Chloride 92 L Carbon Dioxide 32 H Anion Gap 6 BUN 18 Creatinine 1.03 Est GFR ( Amer) > 60 Glucose 92 Calcium 8.4 04/02/20 23:32 Stool - Stool - Final 04/02/20 21:40 Blood Blood Culture (PCR) - Final Staphylococcus Species 04/02/20 21:15 Gomez Catheter Urine Culture - Final Morganella Morganii Proteus Mirabilis 04/02/20 21:15 Troponin I 0.074 Impressions: Chest X-Ray 04/02/20 21:21 IMPRESSION: No evidence of active intrathoracic disease. Chronic change, no adverse change Assessment and Plan - Diagnosis (1) Clostridium difficile colitis Is this a current diagnosis for this admission?: Yes Plan: Continue oral vancomycin. End of treatment April 10. Monitor intake and output to avoid volume depletion. (2) Catheter-associated urinary tract infection Qualifiers: Indwelling urinary catheter type: indwelling urethral catheter Encounter type: initial encounter Qualified Code(s): T83.511A - Infection and inflammato ry reaction due to indwelling urethral catheter, initial encounter; N39.0 - Urinary tract infection, site not specified Is this a current diagnosis for this admission?: Yes Plan: Catheter has been removed. Culture was positive for Morganella and Proteus. Both are sensitive to ceftriaxone. Continue ceftriaxone. End of treatment April 10 (3) Bacterial infection due to Morganella morganii Is this a current diagnosis for this admission?: Yes Plan: Continue Rocephin (4) Proteus infection Is this a current diagnosis for this admission?: Yes Plan: Continue Rocephin (5) Edema of both lower legs Is this a current diagnosis for this admission?: Yes Plan: Furosemide is currently on hold. The patient likely has chronic venous insuffic iency. This would partly be due to her morbid obesity. Consider resuming furosemide tomorrow. (6) Hypokalemia Is this a current diagnosis for this admission?: Yes Plan: Potassium is now normal. Continue daily potassium supplementation. As diarrhea resolves we may need to decrease the potassium chloride supplement. (7) Leukocytosis Qualifiers: Leukocytosis type: unspecified Qualified Code(s): D72.829 - Elevated white blood cell count, unspecified Is this a current diagnosis for this admission?: Yes Plan: Secondary to the C. difficile and urinary tract infections. Resolving with antibiotic therapy. (8) Longstanding persistent atrial fibrillation Is this a current diagnosis for this admission?: Yes Plan: Continue metoprolol and Eliquis (9) Hyponatremia Is this a current diagnosis for this admission?: Yes Plan: This is a chronic problem for this patient. Serum sodium is at its baseline. (10) Hypomagnesemia Is this a current diagnosis for this admission?: Yes Plan: Magnesium is currently normal. Continue to monitor and supplement if needed. (11) Morbid obesity Is this a current diagnosis for this admission?: Yes Plan: BMI is 49.4. This certainly contributes to some of her comorbidities. At 89 years old aggressive dietary intervention would realistically be the only avenue to pursue. (12) Dehydration Is this a current diagnosis for this admission?: Yes Plan: Likely secondary to the diarrhea. Resolved - Plan Summary Summary: ready for d/c pending snf. covid test initiated. - Time Time Spent with patient: 15-24 minutes Medications reviewed and adjusted accordingly: Yes Anticipated discharge: SNF Within: when bed available
[2020-04-06] MEDS: GUAIFENESIN/D-METHORPHAN (200-20 MG) SYRUP 10 ML PO PRN ×2 (14:08→22:57)
[2020-04-07] MEDS ORDERED: WATER FOR INJECTION,STERILE 10 ML SDV ONE (05:53)
[2020-04-07] MEDS: GABAPENTIN 100 MG CAPSULE PO SCH ×3 (06:52→21:29)
[2020-04-07] MEDS: VANCOMYCIN HCL INJ 500 MG VIAL PO SCH ×3 (06:52→18:25)
[2020-04-07 07:37] LABS: ABSOLUTE BASOPHILS # (AUTO) 0.2 10^3/uL (0.0-0.2); ABSOLUTE EOSINOPHILS # (AUTO) 0.5 10^3/uL (0.0-0.6); ABSOLUTE LYMPHOCYTES (AUTO) 2.4 10^3/uL (0.5-4.7); ABSOLUTE NEUT (AUTO) 10.4 10^3/uL (1.7-8.2); EOSINOPHILS % (AUTO) 3.3 % (0-6); HEMATOCRIT 27.3 % (36.0-47.0); HEMOGLOBIN 9.1 g/dL (12.0-15.5); LYMPHOCYTES % (AUTO) 16.6 % (13-45); MEAN CORPUSCULAR HEMOGLOBIN 30.3 pg (27.0-33.4); MEAN CORPUSCULAR HGB CONC 33.4 g/dL (32.0-36.0); MEAN CORPUSCULAR VOLUME 91 fl (80-97); MONOCYTES % (AUTO) 7.2 % (3-13); PLATELET COUNT 234 10^3/uL (150-450); RED CELL DISTRIBUTION WIDTH 16.5 % (11.5-14.0); SEGMENTED NEUTROPHILS % (AUTO) 71.9 % (42-78); TOTAL CELLS COUNTED % (AUTO) 100 %; WHITE BLOOD COUNT 14.5 10^3/uL (4.0-10.5)
[2020-04-07 07:57] LABS: ANION GAP 5 (5-19); BLOOD UREA NITROGEN 16 mg/dL (7-20); CALCIUM 8.6 mg/dL (8.4-10.2); CARBON DIOXIDE 31 mmol/L (22-30); CHLORIDE 93 mmol/L (98-107); GLUCOSE 92 mg/dL (75-110); POTASSIUM 4.4 mmol/L (3.6-5.0)
[2020-04-07] MEDS: POTASSIUM CHLORIDE 10 MEQ TABLET.ER PO SCH (09:09)
[2020-04-07] MEDS: APIXABAN 5 MG TABLET PO SCH ×2 (09:10→18:24)
[2020-04-07] MEDS: DULOXETINE HCL 20 MG CAPSULE.DR PO SCH (09:10)
[2020-04-07] MEDS: METOPROLOL SUCCINATE 50 MG TAB.SR.24H PO SCH (09:10)
[2020-04-07] MEDS: LACTOBACILLUS ACIDOPHILUS 250 MG TAB PO SCH ×2 (09:10→18:24)
[2020-04-07] MEDS ORDERED: FUROSEMIDE INJ/PF 40 MG/4 ML SDV IV ONE (09:30)
[2020-04-07] MEDS: ALBUTEROL SULFATE 0.083% NEB 2.5 MG/3 ML AMPUL NEB PRN ×2 (09:43→19:21)
--- NOTE | 2020-04-07 09:50 | PDOC PROGRESS REPORT ---
Subjective Progress Note for:: 04/07/20 Subjective:: The patient has been experiencing some increased shortness of breath. She reports some wheezing and feels that her edema is increasing. She is normally on furosemide daily. Lately her doses have been changing and the last dose was 80 mg twice daily. Reason For Visit: C. DIFFICILE COLITIS,HYPOKALEMIA, CAUTI Physical Exam Vital Signs: Temp Pulse Resp BP Pulse Ox 98.3 F 68 18 127/61 H 92 04/06/20 23:34 04/07/20 07:00 04/06/20 23:34 04/06/20 23:34 04/06/20 23:34 Intake & Output 04/06/20 04/07/20 04/08/20 06:59 06:59 06:59 Intake Total 2623 1688 Balance 2623 1688 Weight 138.9 kg 140.8 kg General appearance: PRESENT: cooperative, mild distress, morbidly obese, well- developed Head exam: PRESENT: atraumatic, normocephalic Eye exam: PRESENT: conjunctiva pale. ABSENT: scleral icterus Ear exam: PRESENT: normal external ear exam. ABSENT: bleeding, drainage Mouth exam: PRESENT: moist, tongue midline Respiratory exam: PRESENT: rales - Bases, symmetrical, tachypnea, wheezes - Faint occasional expiratory wheeze. ABSENT: rhonchi Cardiovascular exam: PRESENT: RRR, +S1, +S2. ABSENT: bradycardia, diastolic murmur, irregular rhythm, systolic murmur, tachycardia GI/Abdominal exam: PRESENT: normal bowel sounds, soft, other - Pendulous abdomen. ABSENT: guarding, tenderness Rectal exam: PRESENT: deferred Gentrourinary exam: ABSENT: indwelling catheter Extremities exam: PRESENT: pedal edema, +2 edema Neurological exam: PRESENT: alert, awake, oriented to person, oriented to place, oriented to time, oriented to situation, CN II-XII grossly intact Psychiatric exam: PRESENT: flat affect. ABSENT: agitated, anxious Focused psych exam: ABSENT: delusional, paranoid, restlessness Skin exam: PRESENT: dry, warm. ABSENT: erythema, rash Results Laboratory Results: 04/07/20 07:30 04/07/20 07:30 04/07/20 04/07/20 07:30 07:30 WBC 14.5 H RBC 3.00 L Hgb 9.1 L Hct 27.3 L MCV 91 MCH 30.3 MCHC 33.4 RDW 16.5 H Plt Count 234 Seg Neutrophils % 71.9 Sodium 129.4 L Potassium 4.4 Chloride 93 L Carbon Dioxide 31 H Anion Gap 5 BUN 16 Creatinine 1.02 Est GFR ( Amer) > 60 Glucose 92 Calcium 8.6 Magnesium 1.9 04/02/20 23:32 Stool - Stool - Final 04/02/20 23:32 Stool - Stool Stool Culture - Final Group C Beta Streptococcus 04/02/20 21:40 Blood Blood Culture (PCR) - Final Staphylococcus Species 04/02/20 21:40 Blood Blood Culture - Final Staphylococcus Epidermidis 04/02/20 21:15 Troponin I 0.074 Impressions: Chest X-Ray 04/02/20 21:21 IMPRESSION: No evidence of active intrathoracic disease. Chronic change, no adverse change Assessment and Plan - Diagnosis (1) Clostridium difficile colitis Is this a current diagnosis for this admission?: Yes Plan: Continue oral vancomycin. Stool culture positive for beta-hemolytic strep group C. Vancomycin will certainly cover this bacteria. (2) Catheter-associated urinary tract infection Qualifiers: Indwelling urinary catheter type: indwelling urethral catheter Encounter type: initial encounter Qualified Code(s): T83.511A - Infection and inflammatory reaction due to indwelling urethral catheter, initial encounter; N39.0 - Urinary tract infection, site not specified Is this a current diagnosis for this admission?: Yes Plan: Continue Rocephin through April 10 (3) Bacterial infection due to Morganella morganii Is this a current diagnosis for this admission?: Yes Plan: Stiff to Rocephin (4) Proteus infection Is this a current diagnosis for this admission?: Yes Plan: Sensitive to Rocephin (5) Edema of both lower legs Is this a current diagnosis for this admission?: Yes Plan: Clearly there is chronic edema. The patient reports that her edema is worse. Having only seen her for 1 day it is somewhat difficult to tell however we will resume furosemide. We will try and elevate the legs when possible. Due to the patient's incontinence it is impossible to obtain exact intake and output. Because of the catheter associated infection we do not want to place a Gomez catheter. Also the bed scales can be inaccurate and therefore daily weights may not be reliable. (6) Hypokalemia Is this a current diagnosis for this admission?: Yes Plan: Continue potassium supplementation. May need to adjust with the resumption of Lasix. (7) Leukocytosis Qualifiers: Leukocytosis type: unspecified Qualified Code(s): D72.829 - Elevated white blood cell count, unspecified Is this a current diagnosis for this admission?: Yes Plan: Continues to slowly improve on antibiotics. White blood cell count is down to 14.5 today (8) Longstanding persistent atrial fibrillation Is this a current diagnosis for this admission?: Yes Plan: Rate control on metoprolol. Continue anticoagulation. (9) Hyponatremia Is this a current diagnosis for this admission?: Yes Plan: Chronic. I am going to try a 1.5 L fluid restriction and hopefully will be able to use less diuretic and see her serum sodium improved. (10) Hypomagnesemia Is this a current diagnosis for this admission?: Yes Plan: Magnesium continues to remain in the normal range (11) Morbid obesity Is this a current diagnosis for this admission?: Yes Plan: BMI 50.1. At 89 years old no realistic hope of meaningful weight loss. (12) Dehydration Is this a current diagnosis for this admission?: Yes Plan: Resolved - Plan Summary Summary: ready for d/c pending snf. covid test initiated. - Time Time Spent with patient: 15-24 minutes Medications reviewed and adjusted accordingly: Yes Anticipated discharge: SNF Within: when bed available
[2020-04-07] MEDS: CEFTRIAXONE 1 GM/D5W RTU 1 GM/50 ML RTUPB IV SCH (21:29)
[2020-04-08] MEDS: VANCOMYCIN HCL INJ 500 MG VIAL PO SCH ×4 (00:02→18:16)
[2020-04-08] MEDS: GABAPENTIN 100 MG CAPSULE PO SCH ×3 (05:40→21:05)
[2020-04-08 07:12] LABS: ANION GAP 5 (5-19); BLOOD UREA NITROGEN 16 mg/dL (7-20); CALCIUM 8.5 mg/dL (8.4-10.2); CARBON DIOXIDE 32 mmol/L (22-30); CHLORIDE 92 mmol/L (98-107); GLUCOSE 90 mg/dL (75-110); POTASSIUM 4.2 mmol/L (3.6-5.0)
[2020-04-08] MEDS ORDERED: FUROSEMIDE 40 MG TABLET PO SCH (10:00)
[2020-04-08] MEDS: METOPROLOL SUCCINATE 50 MG TAB.SR.24H PO SCH (10:59)
[2020-04-08] MEDS: DULOXETINE HCL 20 MG CAPSULE.DR PO SCH (11:00)
[2020-04-08] MEDS: LACTOBACILLUS ACIDOPHILUS 250 MG TAB PO SCH ×2 (11:00→18:15)
[2020-04-08] MEDS: APIXABAN 5 MG TABLET PO SCH ×2 (11:00→18:16)
[2020-04-08] MEDS: POTASSIUM CHLORIDE 10 MEQ TABLET.ER PO SCH (11:01)
--- NOTE | 2020-04-08 11:31 | PDOC PROGRESS REPORT ---
Subjective Progress Note for:: 04/08/20 Subjective:: The patient still has congested breath sounds. We have resumed her Lasix and have been increasing her dose. Unfortunately with her urinary incontinence it is possible she keep exact intake and output numbers. She feels that she has responded to nebulizer treatments as well. Reason For Visit: C. DIFFICILE COLITIS,HYPOKALEMIA, CAUTI Physical Exam Vital Signs: Temp Pulse Resp BP Pulse Ox 97.5 F 63 17 143/57 H 94 04/08/20 00:06 04/08/20 07:00 04/08/20 00:06 04/08/20 00:06 04/08/20 00:06 Intake & Output 04/07/20 04/08/20 04/09/20 06:59 06:59 06:59 Intake Total 1688 1198 Output Total 875 Balance 1688 323 Weight 140.8 kg 140.8 kg General appearance: PRESENT: cooperative, mild distress, morbidly obese, well- developed Head exam: PRESENT: atraumatic, normocephalic Eye exam: PRESENT: conjunctiva pale. ABSENT: scleral icterus Respiratory exam: PRESENT: rales, symmetrical, wheezes - Sporadic expiratory wheeze, other - Congested breath sounds. ABSENT: accessory muscle use, rhonchi, tachypnea Cardiovascular exam: PRESENT: irregular rhythm. ABSENT: bradycardia, tachycardia GI/Abdominal exam: PRESENT: normal bowel sounds, soft, other - Pendulous abdomen. ABSENT: guarding, tenderness Rectal exam: PRESENT: deferred Gentrourinary exam: ABSENT: indwelling catheter Extremities exam: PRESENT: +2 edema Neurological exam: PRESENT: alert, awake, oriented to person, oriented to place, oriented to time, oriented to situation, CN II-XII grossly intact Psychiatric exam: PRESENT: appropriate affect. ABSENT: agitated, anxious Focused psych exam: ABSENT: delusional, paranoid, restlessness Skin exam: PRESENT: pallor Results Laboratory Results: 04/07/20 07:30 04/08/20 06:38 04/08/20 06:38 Sodium 128.9 L Potassium 4.2 Chloride 92 L Carbon Dioxide 32 H Anion Gap 5 BUN 16 Creatinine 1.01 Est GFR ( Amer) > 60 Glucose 90 Calcium 8.5 Magnesium 1.9 04/02/20 22:55 Blood Blood Culture - Final NO GROWTH IN 5 DAYS 04/02/20 23:32 Stool - Stool - Final 04/02/20 23:32 Stool - Stool Stool Culture - Final Group C Beta Streptococcus 04/02/20 21:15 Troponin I 0.074 Impressions: Chest X-Ray 04/02/20 21:21 IMPRESSION: No evidence of active intrathoracic disease. Chronic change, no adverse change Assessment and Plan - Diagnosis (1) Clostridium difficile colitis Is this a current diagnosis for this admission?: Yes Plan: Recommend a 10-day course of oral vancomycin (2) Catheter-associated urinary tract infection Qualifiers: Indwelling urinary catheter type: indwelling urethral catheter Encounter type: initial encounter Qualified Code(s): T83.511A - Infection and inf lammatory reaction due to indwelling urethral catheter, initial encounter; N39.0 - Urinary tract infection, site not specified Is this a current diagnosis for this admission?: Yes Plan: Rocephin through April 10 (3) Bacterial infection due to Morganella morganii Is this a current diagnosis for this admission?: Yes Plan: Rocephin as above (4) Proteus infection Is this a current diagnosis for this admission?: Yes Plan: Rocephin as above (5) Edema of both lower legs Is this a current diagnosis for this admission?: Yes Plan: Furosemide was on hold initially due to diarrhea. Have resumed the furosemide. She reports that her primary care provider had been steadily increasing her furosemide as an outpatient prior to this admission. I will increase her oral dose to 60 mg today. (6) Hypokalemia Is this a current diagnosis for this admission?: Yes Plan: Resolved. Continue protein supplement. (7) Leukocytosis Qualifiers: Leukocytosis type: unspecified Qualified Code(s): D72.829 - Elevated white blood cell count, unspecified Is this a current diagnosis for this admission?: Yes Plan: Continues to improve on antibiotics. Yesterday white blood cell count was 14.5. Will recheck tomorrow. (8) Longstanding persistent atrial fibrillation Is this a current diagnosis for this admission?: Yes Plan: Stable. Pacemaker is in place. Continue current regimen. (9) Hyponatremia Is this a current diagnosis for this admission?: Yes Plan: Longstanding chronic problem for this patient. It certainly could be due to chronic diuretic therapy. She is on a 1.5 L fluid restriction. (10) Morbid obesity Is this a current diagnosis for this admission?: Yes Plan: BMI is 50. Morbid obesity, especially of this magnitude at this age, is likely having additive effects on her comorbidities. A likely affects respiratory and cardiac as well as orthopedic issues (11) Dehydration Is this a current diagnosis for this admission?: Yes Plan: Secondary to diarrhea and high doses of diuretics.. Resolved. Furosemide has been resumed. (12) Hypomagnesemia Is this a current diagnosis for this admission?: Yes Plan: Resolved (13) Acute on chronic congestive heart failure Qualifiers: Heart failure type: unspecified Qualified Code(s): I50.9 - Heart failure, unspecified Is this a current diagnosis for this admission?: Yes Plan: There is no echocardiogram in the chart. It is the assess if this is systolic or diastolic or both. Continue current medications. Lasix dose adjusted daily. (14) Anemia Qualifiers: Anemia type: unspecified type Qualified Code(s): D64.9 - Anemia, unspecified Is this a current diagnosis for this admission?: Yes Plan: Hemoglobin yesterday was 9.1. The patient does have chronic anemia. The ceftriaxone can cause anemia in a small percentage of patients. No transfusion at this time but I would recheck hemoglobin after ceftriaxone therapy is completed. - Plan Summary Summary: ready for d/c pending snf. covid test initiated. - Time Time Spent with patient: 15-24 minutes Medications reviewed and adjusted accordingly: Yes Anticipated discharge: SNF Within: when bed available
[2020-04-08] MEDS: ALBUTEROL SULFATE 0.083% NEB 2.5 MG/3 ML AMPUL NEB PRN ×2 (11:44→20:46)
--- NOTE | 2020-04-08 15:18 | RADIOLOGY REPORT (SQ) ---
EXAM DESCRIPTION: CHEST SINGLE VIEW IMAGES COMPLETED DATE/TIME: 04/08/2020 2:48 pm REASON FOR STUDY: dyspnea COMPARISON: Chest films 05/21/2015, 02/15/2020, 03/02/2020, 03/21/2020, 04/02/2020 EXAM PARAMETERS: NUMBER OF VIEWS: One view. TECHNIQUE: Single frontal radiographic view of the chest acquired. RADIATION DOSE: NA LIMITATIONS: Portable film, obese patient FINDINGS: LUNGS AND PLEURA: Pulmonary vascular congestion is present without gross alveolar or inter stitial edema. No pleural effusion. No pneumothorax. MEDIASTINUM AND HILAR STRUCTURES: No masses. Contour normal. HEART AND VASCULAR STRUCTURES: Stable mild cardiomegaly BONES: Next HARDWARE: Unchanged left-sided single lead pacemaker OTHER: No other significant finding. IMPRESSION: Pulmonary vascular congestion without gross pulmonary edema TECHNICAL DOCUMENTATION: JOB ID: [id number] 2010 [employer]- All Rights Reserved Reading location - IP/workstation name: [id number]
[2020-04-08] MEDS: CEFTRIAXONE 1 GM/D5W RTU 1 GM/50 ML RTUPB IV SCH (21:05)
[2020-04-08] MEDS: GUAIFENESIN/D-METHORPHAN (200-20 MG) SYRUP 10 ML PO PRN (23:16)
[2020-04-09] MEDS: VANCOMYCIN HCL INJ 500 MG VIAL PO SCH ×3 (00:03→15:08)
[2020-04-09] MEDS: GUAIFENESIN/D-METHORPHAN (200-20 MG) SYRUP 10 ML PO PRN (05:17)
[2020-04-09] MEDS: GABAPENTIN 100 MG CAPSULE PO SCH ×2 (05:17→13:04)
[2020-04-09 06:42] LABS: ABSOLUTE BASOPHILS # (AUTO) 0.1 10^3/uL (0.0-0.2); ABSOLUTE EOSINOPHILS # (AUTO) 0.5 10^3/uL (0.0-0.6); ABSOLUTE LYMPHOCYTES (AUTO) 1.8 10^3/uL (0.5-4.7); ABSOLUTE MONOCYTES (AUTO) 0.9 10^3/uL (0.1-1.4); ABSOLUTE NEUT (AUTO) 5.2 10^3/uL (1.7-8.2); BASOPHILS % (AUTO) 1.3 % (0-2); EOSINOPHILS % (AUTO) 6.2 % (0-6); HEMATOCRIT 25.2 % (36.0-47.0); HEMOGLOBIN 8.5 g/dL (12.0-15.5); MEAN CORPUSCULAR HEMOGLOBIN 30.7 pg (27.0-33.4); MEAN CORPUSCULAR HGB CONC 33.8 g/dL (32.0-36.0); MEAN CORPUSCULAR VOLUME 91 fl (80-97); MONOCYTES % (AUTO) 10.6 % (3-13); PLATELET COUNT 229 10^3/uL (150-450); RED BLOOD COUNT 2.78 10^6/uL (3.72-5.28); RED CELL DISTRIBUTION WIDTH 16.5 % (11.5-14.0); SEGMENTED NEUTROPHILS % (AUTO) 60.9 % (42-78); TOTAL CELLS COUNTED % (AUTO) 100 %; WHITE BLOOD COUNT 8.6 10^3/uL (4.0-10.5)
[2020-04-09 07:10] LABS: BLOOD UREA NITROGEN 15 mg/dL (7-20); CALCIUM 8.4 mg/dL (8.4-10.2); CHLORIDE 93 mmol/L (98-107); GLUCOSE 95 mg/dL (75-110); POTASSIUM 4.4 mmol/L (3.6-5.0)
[2020-04-09 07:18] LABS: CARBON DIOXIDE 32 mmol/L (22-30)
[2020-04-09 07:21] LABS: ANION GAP 4 (5-19)
[2020-04-09] MEDS: ALBUTEROL SULFATE 0.083% NEB 2.5 MG/3 ML AMPUL NEB PRN (09:45)
[2020-04-09] MEDS ORDERED: FUROSEMIDE 80 MG TABLET PO SCH (10:00)
--- NOTE | 2020-04-09 11:18 | PDOC TRANSFER SUMMARY ---
Impression - Admit/DC Date/PCP Admission Date/Primary Care Provider: 04/03/20 01:02 JOEL BARRAGAN MD Discharge Date: 04/09/20 - Discharge Diagnosis (1) Clostridium difficile colitis Is this a current diagnosis for this admission?: Yes (2) Catheter-associated urinary tract infection Is this a current diagnosis for this admission?: Yes (3) Bacterial infection due to Morganella morganii Is this a current diagnosis for this admission?: Yes (4) Proteus infection Is this a current diagnosis for this admission?: Yes (5) Edema of both lower legs Is this a current diagnosis for this admission?: Yes (6) Hypokalemia Is this a current diagnosis for this admission?: Yes (7) Leukocytosis Is this a current diagnosis for this admission?: Yes (8) Longstanding persistent atrial fibrillation Is this a current diagnosis for this admission?: Yes (9) Hyponatremia Is this a current diagnosis for this admission?: Yes (10) Morbid obesity Is this a current diagnosis for this admission?: Yes (11) Dehydration Is this a current diagnosis for this admission?: Yes (12) Hypomagnesemia Is this a current diagnosis for this admission?: Yes (13) Acute on chronic congestive heart failure Is this a current diagnosis for this admission?: Yes (14) Anemia Is this a current diagnosis for this admission?: Yes - Assessment Summary: ready for d/c pending snf. covid test initiated. - Additional Information Resuscitation Status: Full Code Discharge Diet: Cardiac Discharge Activity: Activity As Tolerated - Advance activity per physical therapy Referrals: JOEL BARRAGAN MD [Primary Care Provider] - Follow up as needed Prescriptions: Ceftriaxone 1 gm/D5w RTU [Rocephin RTU 1 gm/D5w 50 ml Premix] 1 gm IV DAILY #1 ml Vancomycin HCl 250 mg PO Q6 #20 capsule Home Medications: Apixaban [Eliquis 5 mg Tablet] 5 mg PO BID 02/16/20 Gabapentin [Neurontin 100 mg Capsule] 100 mg PO Q8 02/16/20 Metoprolol Succinate [Toprol Xl 50 mg Tab.sr] 50 mg PO DAILY 02/16/20 Famotidine [Pepcid 20 mg Tablet] 20 mg PO Q12 #60 tablet 03/07/20 Lactobacillus Acidophilus [Bacid 250 mg Tablet] 500 mg PO BID #60 tab 03/07/20 Duloxetine HCl 20 mg PO DAILY 04/03/20 Acetaminophen [Tylenol 325 mg Tablet] 650 mg PO Q4HP PRN tablet 04/09/20 Albuterol Sulfate [Ventolin 0.083% Neb 2.5 mg/3 mL Ampul] 2.5 mg NEB RTQ4HP PRN vial.neb 04/09/20 Ceftriaxone 1 gm/D5w RTU [Rocephin RTU 1 gm/D5w 50 ml Premix] 1 gm IV DAILY #1 ml 04/09/20 Furosemide [Lasix 40 mg Tablet] 40 mg PO DAILY tablet 04/09/20 Furosemide [Lasix 80 mg Tablet] 80 mg PO DAILY tablet 04/09/20 Guaifenesin/D-Methorphan Hb [Robitussin-Dm Syrup 10 ml Udcup] 10 ml PO QIDP PRN syrup 04/09/20 Lactobacillus Acidophilus [Bacid 250 mg Tablet] 500 mg PO BID tab 04/09/20 Metolazone [Zaroxolyn 2.5 mg Tablet] 2.5 mg PO DAILY tablet 04/09/20 Potassium Chloride [Klor-Con 10 Meq Tablet ER] 40 meq PO DAILY tablet.er 04/09/20 Vancomycin HCl 250 mg PO Q6 #20 capsule 04/09/20 Vancomycin HCl [Vancocin Inj 500 mg Vial] 250 mg PO Q6 vial 04/09/20 History of Present Illiness History of Present Illness: ROLDAN SCHAEFER is a 89 year old female who comes in to the ER with a chief complaint of weakness. Apparently several weeks ago she got a cellulitis and was put on antibiotics by her primary care provider, and subsequently got C. difficile colitis. She underwent treatment for the colitis and completed it. And the cellulitis came back and she was put back on antibiotics, and also because of the chronic swelling in her lower extremities she was subjected to an increased dose of Lasix. She says she was used to taking 40 mg of Lasix once a day, and her Lasix was increased to 80 mg twice a day by her primary care provider. She was urinating so much that she wound up in the ER where a Gomez catheter was placed. It was not intended to be left in long-term, but she is kept it in now for about a month. Her urinalysis in the ER had 3+ bacteria but there was only about 11 white blood cells in the urine. Her potassium was low at 2.7. She did have an impressive leukocytosis at 29,000. She reports having several bouts of diarrhea for the last couple of days. She is not had a fever. No chest pain or shortness of breath. No nausea, vomiting, or abdominal pain. Hospital Course Hospital Course: (1) Clostridium difficile colitis Is this a current diagnosis for this admission?: Yes Plan: Vancomycin 250 mg every 6 hours through April 13 (2) Catheter-associated urinary tract infection Qualifiers: Indwelling urinary catheter type: indwelling urethral catheter Encounter type: initial encounter Qualified Code(s): T83.511A - Infection and inflammatory reaction due to indwelling urethral catheter, initial encounter; N39.0 - Urinary tract infection, site not specified Is this a current diagnosis for this admission?: Yes Plan: Rocephin through April 10 (3) Bacterial infection due to Morganella morganii Is this a current diagnosis for this admission?: Yes Plan: Rocephin as above (4) Proteus infection Is this a current diagnosis for this admission?: Yes Plan: Rocephin as above (5) Edema of both lower legs Is this a current diagnosis for this admission?: Yes Plan: The patient has a history of heart failure (per her report). She was experiencing frequent diarrhea and so the patient's furosemide was initially held. The diarrhea did subside but she experienced fluid buildup partly due to holding the furosemide as well as initial treatment with IV fluid. I have been slowly increasing her diuresis. At discharge she should be on metolazone 2.5 mg daily before her morning Lasix. Furosemide 80 mg in the morning and then 40 mg at 4:00 PM daily. This will avoid waking up at night to urinate. Will need to monitor blood pressure with the increased dose of diuretics and potassium levels (6) Hypokalemia Is this a current diagnosis for this admission?: Yes Plan: Hypokalemic on admission. Currently on 40 mg daily with normal serum potassium. May need to increase the supplement based on increased diuretic dose. (7) Leukocytosis Qualifiers: Leukocytosis type: unspecified Qualified Code(s): D72.829 - Elevated white blood cell count, unspecified Is this a current diagnosis for this admission?: Yes Plan: Elevated due to urinary infection and C. difficile. White blood cell count is now normal with antibiotic therapy. (8) Longstanding persistent atrial fibrillation Is this a current diagnosis for this admission?: Yes Plan: Stable. Pacemaker is in place. Continue current regimen. She is also on Eliquis. (9) Hyponatremia Is this a current diagnosis for this admission?: Yes Plan: Longstanding chronic problem for this patient. It certainly could be due to chronic diuretic therapy. She is on a 1.5 L fluid restriction. Continue to monitor serum sodium (10) Morbid obesity Is this a current diagnosis for this admission?: Yes Plan: BMI is 50. Morbid obesity, especially of this magnitude at this age, is likely having additive effects on her comorbidities. A likely affects respiratory and cardiac as well as orthopedic issues (11) Dehydration Is this a current diagnosis for this admission?: Yes Plan: Secondary to diarrhea while continuing on high-dose furosemide. This is resolved. The patient is in fact fluid positive hence the increased dose of diuretics. (12) Hypomagnesemia Is this a current diagnosis for this admission?: Yes Plan: Likely due to the diarrhea. This condition is resolved (13) Acute on chronic congestive heart failure Qualifiers: Heart failure type: unspecified Qualified Code(s): I50.9 - Heart failure, unspecified Is this a current diagnosis for this admission?: Yes Plan: We are unable to assess her last echocardiogram. Because of this it is unknown if she has systolic, diastolic or combined heart failure. Due to the initial dehydration her furosemide was held. She was also given IV fluid. She did get fluid overloaded as the diarrhea slowed. I have been increasing her furosemide on a daily basis. She is still congested and occasionally wheezy. She does respond to nebulizer treatments but the mainstay of therapy is the aggressive diuresis. She should continue metolazone 2.5 mg every morning followed by furosemide 80 mg every morning. She should then have furosemide 40 mg every afternoon. She was on 80 mg twice a day prior to her admission. I think this new regimen might be as effective or possibly more effective. We will need to monitor blood pressure and serum chemistries for possible adjustment based on the effects of the increased diuresis. (14) Anemia Qualifiers: Anemia type: unspecified type Qualified Code(s): D64.9 - Anemia, unspecified Is this a current diagnosis for this admission?: Yes Plan: The patient has exhibited worsening anemia during hospitalization. Hemoglobin yesterday was 9.1. It is 8.5 today. She is on Eliquis but there is no evidence of bleeding. The patient does have chronic anemia. The ceftriaxone can cause anemia in a small percentage of patients. The decreasing hemoglobin does coincide with her Rocephin treatment. I believe that her hemoglobin will begin to increase with the completion of her Rocephin therapy tomorrow. I have opted not to transfuse as that would likely create increased fluid burden for the patient. The patient has a history of bad arthritis. This combined with her weakness and morbid obesity has contributed to weakness and decreased activity. The patient will benefit from aggressive physical therapy. Physical Exam Vital Signs: Temp Pulse Resp BP Pulse Ox 98.3 F 63 18 103/54 L 93 04/09/20 08:48 04/09/20 09:45 04/09/20 09:45 04/09/20 08:48 04/09/20 09:45 Intake & Output 04/08/20 04/09/20 04/10/20 06:59 06:59 06:59 Intake Total 1198 1070 240 Output Total 875 200 Balance 323 870 240 Weight 140.8 kg 140.8 kg General appearance: PRESENT: no acute distress - Resting on room air, morbidly obese Head exam: PRESENT: atraumatic, normocephalic Eye exam: PRESENT: conjunctiva pale, EOMI. ABSENT: scleral icterus Ear exam: PRESENT: normal external ear exam. ABSENT: bleeding, drainage Mouth exam: PRESENT: moist, tongue midline Neck exam: ABSENT: carotid bruit, lymphadenopathy, thyromegaly, tracheostomy Respiratory exam: PRESENT: crackles, symmetrical, wheezes - Sporadic wheezing. ABSENT: accessory muscle use, prolonged expiratory phas, rhonchi, tachypnea Cardiovascular exam: PRESENT: irregular rhythm GI/Abdominal exam: PRESENT: normal bowel sounds, soft, other - Pendulous abdomen. ABSENT: guarding, tenderness Rectal exam: PRESENT: deferred Gentrourinary exam: ABSENT: indwelling catheter Extremities exam: PRESENT: +2 edema - Edema has been slowly improving especially upper extremities Musculoskeletal exam: ABSENT: deformity, dislocation Neurological exam: PRESENT: alert, awake, oriented to person, oriented to place, oriented to time, oriented to situation, CN II-XII grossly intact. ABSENT: altered Psychiatric exam: PRESENT: appropriate affect. ABSENT: agitated, anxious Focused psych exam: ABSENT: delusional, paranoid, restlessness Results Laboratory Results: WBC 8.6 10^3/uL (4.0-10.5) 04/09/20 06:22 RBC 2.78 10^6/uL (3.72-5.28) L 04/09/20 06:22 Hgb 8.5 g/dL (12.0-15.5) L 04/09/20 06:22 Hct 25.2 % (36.0-47.0) L 04/09/20 06:22 MCV 91 fl (80-97) 04/09/20 06:22 MCH 30.7 pg (27.0-33.4) 04/09/20 06:22 MCHC 33.8 g/dL (32.0-36.0) 04/09/20 06:22 RDW 16.5 % (11.5-14.0) H 04/09/20 06:22 Plt Count 229 10^3/uL (150-450) 04/09/20 06:22 Lymph % (Auto) 21.0 % (13-45) 04/09/20 06:22 Blount % (Auto) 10.6 % (3-13) 04/09/20 06:22 Eos % (Auto) 6.2 % (0-6) H 04/09/20 06:22 Baso % (Auto) 1.3 % (0-2) 04/09/20 06:22 Absolute Neuts (auto) 5.2 10^3/uL (1.7-8.2) 04/09/20 06:22 Absolute Lymphs (auto) 1.8 10^3/uL (0.5-4.7) 04/09/20 06:22 Absolute Monos (auto) 0.9 10^3/uL (0.1-1.4) 04/09/20 06:22 Absolute Eos (auto) 0.5 10^3/uL (0.0-0.6) 04/09/20 06:22 Absolute Basos (auto) 0.1 10^3/uL (0.0-0.2) 04/09/20 06:22 Total Counted 100 04/02/20 22:50 Seg Neutrophils % 60.9 % (42-78) 04/09/20 06:22 Seg Neuts % (Manual) 85 % (42-78) H 04/02/20 22:50 Band Neutrophils % Cancelled 04/02/20 21:15 Lymphocytes % (Manual) 8 % (13-45) L 04/02/20 22:50 Atypical Lymphs % Cancelled 04/02/20 21:15 Monocytes % (Manual) 7 % (3-13) 04/02/20 22:50 Eosinophils % (Manual) 0 % (0-6) 04/02/20 22:50 Basophils % (Manual) 0 % (0-2) 04/02/20 22:50 Metamyelocytes % Cancelled 04/02/20 21:15 Myelocytes % Cancelled 04/02/20 21:15 Promyelocytes % Cancelled 04/02/20 21:15 Immature Leukocytes % Cancelled 04/02/20 21:15 Abs Neuts (Manual) 24.8 10^3/uL (1.7-8.2) H 04/02/20 22:50 Abs Lymphs (Manual) 2.3 10^3/uL (0.5-4.7) 04/02/20 22:50 Abs Monocytes (Manual) 2.0 10^3/uL (0.1-1.4) H 04/02/20 22:50 Absolute Eos (Manual) 0.0 10^3/uL (0.0-0.6) 04/02/20 22:50 Abs Basophils (Manual) 0.0 10^3/uL (0.0-0.2) 04/02/20 22:50 Nucleated RBCs Cancelled 04/02/20 21:15 Differential Comment Cancelled 04/02/20 21:15 Hypersegmented Neuts Cancelled 04/02/20 21:15 Smudge Cells Cancelled 04/02/20 21:15 Toxic Granulation Cancelled 04/02/20 21:15 Toxic Vacuolation Cancelled 04/02/20 21:15 Dohle Bodies Cancelled 04/02/20 21:15 Gaetano Rods Cancelled 04/02/20 21:15 WBC Morphology Comment Cancelled 04/02/20 21:15 Platelet Estimate Cancelled 04/02/20 21:15 Clumped Platelets Cancelled 04/02/20 21:15 Large Platelets Cancelled 04/02/20 21:15 Giant Platelets Cancelled 04/02/20 21:15 Platelet Comment ADEQUATE 04/02/20 22:50 Polychromasia Cancelled 04/02/20 21:15 Hypochromasia Cancelled 04/02/20 21:15 Poikilocytosis Cancelled 04/02/20 21:15 Basophilic Stippling Cancelled 04/02/20 21:15 Anisocytosis 1+ 04/02/20 22:50 Microcytosis Cancelled 04/02/20 21:15 Macrocytosis Cancelled 04/02/20 21:15 Spherocytes Cancelled 04/02/20 21:15 Pappenheimer Bodies Cancelled 04/02/20 21:15 Sickle Cells Cancelled 04/02/20 21:15 Target Cells Cancelled 04/02/20 21:15 Tear Drop Cells Cancelled 04/02/20 21:15 Ovalocytes SLIGHT 04/02/20 22:50 Stomatocytes Cancelled 04/02/20 21:15 Helmet Cells Cancelled 04/02/20 21:15 Oliver-Babb Bodies Cancelled 04/02/20 21:15 Gema Cells Cancelled 04/02/20 21:15 Acanthocytes (Spur) Cancelled 04/02/20 21:15 Rouleaux Cancelled 04/02/20 21:15 Schistocytes Cancelled 04/02/20 21:15 RBC Morph Comment Cancelled 04/02/20 21:15 PT 25.9 SEC (11.4-15.4) H 04/02/20 21:15 INR 2.32 04/02/20 21:15 VBG pH 7.49 (7.30-7.42) H 04/02/20 21:40 VBG pCO2 55.2 mmHg (35-63) 04/02/20 21:40 VBG HCO3 40.7 mmol/L (20-32) H 04/02/20 21:40 VBG Base Excess 14.7 mmol/L 04/02/20 21:40 Sodium 128.6 mmol/L (137-145) L 04/09/20 06:22 Potassium 4.4 mmol/L (3.6-5.0) 04/09/20 06:22 Chloride 93 mmol/L (98-107) L 04/09/20 06:22 Carbon Dioxide 32 mmol/L (22-30) H 04/09/20 06:22 Anion Gap 4 (5-19) L 04/09/20 06:22 BUN 15 mg/dL (7-20) 04/09/20 06:22 Creatinine 1.03 mg/dL (0.52-1.25) 04/09/20 06:22 Est GFR ( Amer) > 60 (>60) 04/09/20 06:22 Est GFR (MDRD) Non-Af 51 (>60) L 04/09/20 06:22 Glucose 95 mg/dL (75-110) 04/09/20 06:22 POC Glucose 134 mg/dL (70-110) H 04/02/20 22:50 Lactic Acid 2.0 mmol/L (0.7-2.1) 04/03/20 03:34 Calcium 8.4 mg/dL (8.4-10.2) 04/09/20 06:22 Magnesium 1.9 mg/dL (1.6-2.3) 04/08/20 06:38 Total Bilirubin 1.9 mg/dL (0.2-1.3) H 04/02/20 21:15 Direct Bilirubin 0.4 mg/dL (0.0-0.4) 04/02/20 21:15 Neonat Total Bilirubin Not Reportable 04/02/20 21:15 Neonat Direct Bilirubin Not Reportable 04/02/20 21:15 Neonat Indirect Bili Not Reportable 04/02/20 21:15 AST 28 U/L (14-36) 04/02/20 21:15 ALT 10 U/L (<35) 04/02/20 21:15 Alkaline Phosphatase 108 U/L (38-126) 04/02/20 21:15 Troponin I 0.074 ng/mL 04/02/20 21:15 Total Protein 6.2 g/dL (6.3-8.2) L 04/02/20 21:15 Albumin 3.0 g/dL (3.5-5.0) L 04/02/20 21:15 Urine Color JOSE 04/02/20 21:15 Urine Appearance CLOUDY 04/02/20 21:15 Urine pH 8.0 (5.0-9.0) 04/02/20 21:15 Ur Specific [place] 1.012 04/02/20 21:15 Urine Protein 100 mg/dL (NEGATIVE) H 04/02/20 21:15 Urine Glucose (UA) NEGATIVE mg/dL (NEGATIVE) 04/02/20 21:15 Urine Ketones NEGATIVE mg/dL (NEGATIVE) 04/02/20 21:15 Urine Blood SMALL (NEGATIVE) H 04/02/20 21:15 Urine Nitrite (Reflex) NEGATIVE (NEGATIVE) 04/02/20 21:15 Urine Bilirubin NEGATIVE (NEGATIVE) 04/02/20 21:15 Urine Urobilinogen NEGATIVE mg/dL (<2.0) 04/02/20 21:15 Leukocyte Esterase Rfl LARGE (NEGATIVE) H 04/02/20 21:15 Urine RBC (Auto) 8 /HPF 04/02/20 21:15 Urine Bacteria (Auto) 3+ /HPF 04/02/20 21:15 Urine WBC (Reflex) 11 /HPF 04/02/20 21:15 Triple Phos Cryst (Auto) FEW /HPF 04/02/20 21:15 Urine Mucus (Auto) MANY /LPF 04/02/20 21:15 Urine Ascorbic Acid NEGATIVE (NEGATIVE) 04/02/20 21:15 Stl C. Difficile GDH Ag POSITIVE (NEGATIVE) 04/03/20 12:50 Stl C.difficile Tox A&B POSITIVE (NEGATIVE) 04/03/20 12:50 COVID-19 Source NASOPHARYNGEAL 04/05/20 22:35 COVID-19 (URIAH) NOT DETECTED 04/05/20 22:35 Slides for Path Review Cancelled 04/02/20 21:15 04/02/20 21:15 Troponin I 0.074 Impressions: Chest X-Ray 04/02/20 21:21 IMPRESSION: No evidence of active intrathoracic disease. Chronic change, no adverse change Chest X-Ray 04/08/20 00:00 IMPRESSION: Pulmonary vascular congestion without gross pulmonary edema Plan Health Concerns: Recurrent urinary infections. C. difficile due to recurrent antibiotic use. Morbid obesity with underlying heart disease. Change in volume status due to diarrhea and alterations in diuretic therapy Plan of Treatment: Patient is transferring to [facility]. Recommendations have been made as above. These include a plan of metolazone before morning dose of furosemide and then an afternoon dose of furosemide. She has been stable on room air. She has 4 more days of oral vancomycin therapy and 1 more day of Rocephin. I believe her anemia is due to the Rocephin as opposed to active bleeding. The patient will benefit from aggressive physical therapy and monitoring of vital signs, CBC and serum chemistries Goals: Back to normovolemic status. Resolution of C. difficile colitis and urinary tract infection. Improved functional status. Time Spent: Greater than 30 Minutes Stroke Is this a Stroke Patient?: No Acute Heart Failure - Is this a Heart Failure Patient?: Yes Documentation of LVEF assessment?: No, Document reason - Recent echocardiogram as an outpatient LVEF - Reason: Recent echocardiogram as an outpatient. Ejection fraction is unknown. LVEF: LVEF Greater Than 40% - Likely greater than 40%. Echocardiogram results not available from outside facility. Anticoagulant Therapy: Yes Discharged on Evidence-Based Beta Blockers: Yes Discharged on ARNI?: No-Document Contraindications Reason(s) not discharged on ARNI: Other - Per primary bomb technician ARNI Reason - Other: Per outpatient bomb technician Discharged on ARB?: No-document contraindications - Per outpatient bomb technician Reason(s) not Discharged on ARB: Other ARB Reason - Other: Per outpatient bomb technician Discharged on ACEI?: No, document contraindications Reason(s) not Discharged on ACEI: other - Per primary bomb technician ACEI Reason - Other: Per outpatient bomb technician For LVEF <35%, discharged on Aldosterone Antagonist?: N/A (LVEF > or = 35%) Follow-up Appointment scheduled within 7 days?: No, document reason - Transferring to senior living facility
[2020-04-09] MEDS ORDERED: FUROSEMIDE INJ/PF 40 MG/4 ML SDV IV ONE (11:30)
[2020-04-09] MEDS: DULOXETINE HCL 20 MG CAPSULE.DR PO SCH (11:52)
[2020-04-09] MEDS: METOPROLOL SUCCINATE 50 MG TAB.SR.24H PO SCH (11:53)
[2020-04-09] MEDS: LACTOBACILLUS ACIDOPHILUS 250 MG TAB PO SCH (11:53)
[2020-04-09] MEDS: APIXABAN 5 MG TABLET PO SCH (11:53)
[2020-04-09] MEDS: POTASSIUM CHLORIDE 10 MEQ TABLET.ER PO SCH (11:54)
[2020-04-09 13:02] VITALS: BP 133/67
[2020-04-09] MEDS ORDERED: VANCOMYCIN HCL INJ 500 MG VIAL PO SCH (15:00)
[2020-04-09] MEDS ORDERED: FUROSEMIDE 40 MG TABLET PO SCH (16:00)
[2020-04-10] MEDS ORDERED: METOLAZONE 2.5 MG TABLET PO SCH (10:00)
[2020-04-10] MEDS ORDERED: FUROSEMIDE 40 MG TABLET PO SCH (16:00)
== END 2020-04-09 15:32 | DRG 372 ==
LOC: ER 20:28 → EH 04-03 01:02 → 4W 04-03 02:40 → 4S 04-04 12:35
PROVIDERS: ADMIT Family Medicine; ATTEND Hospitalist
DX: A04.72 Enterocolitis due to Clostridium difficile, not specified as recurrent (principal); T83.511A Infection and inflammatory reaction due to indwelling urethral catheter, initial encounter; I48.11 Longstanding persistent atrial fibrillation; E87.1 Hypo-osmolality and hyponatremia; Z68.42 Body mass index [BMI] 45.0-49.9, adult; N39.0 Urinary tract infection, site not specified; Y84.6 Urinary catheterization as the cause of abnormal reaction of the patient, or of later complication, without mention of misadventure at the time of the procedure; I11.0 Hypertensive heart disease with heart failure; I50.9 Heart failure, unspecified; D64.9 Anemia, unspecified; Z79.01 Long term (current) use of anticoagulants; E78.5 Hyperlipidemia, unspecified; K21.9 Gastro-esophageal reflux disease without esophagitis; M19.90 Unspecified osteoarthritis, unspecified site; Z96.659 Presence of unspecified artificial knee joint; Z79.899 Other long term (current) drug therapy; E86.0 Dehydration; E66.01 Morbid (severe) obesity due to excess calories; E87.6 Hypokalemia; B96.4 Proteus (mirabilis) (morganii) as the cause of diseases classified elsewhere; E83.42 Hypomagnesemia
CPT/HCPCS: 36415; 71045; 80048; 80053; 81001; 82803; 82962; 83605; 83735; 84484; 85025; 85027; 85610; 87040; 87045; 87077; 87086; 87088; 87150; 87186; 87205; 87324; 87449; 87635; 93005; 93010; 96365; 96366; 99285; C9803; J0696; J1940; J1956; J3370; J3475; J3480; J3490; J7030